=== PATIENT | male | born 1990 | race Caucasian/White ===

== ENCOUNTER 2017-12-06 21:47 | Inpatient (IN) | payer MEDICAID, OTHER ==
--- NOTE | 2017-12-06 22:04 | ED ---
General Adult HPI - General Chief complaint: Psychiatric Symptoms Stated complaint: suicidal Time Seen by Provider: 12/06/17 22:02 Source: patient, family, RN notes reviewed, old records reviewed Mode of arrival: ambulatory Limitations: no limitations - History of Present Illness Initial comments: This is a 19-year-old male to the ER for evaluation. Patient presents for suicidal thoughts today. Episodic symptoms 2 weeks, denies current drug or alcohol abuse. - Related Data Home Medications Medication Instructions Recorded Confirmed Fish Oil/Dha/Epa [Fish Oil 1,200 1 cap PO BID 12/06/17 12/07/17 mg Fish Oil] lamoTRIgine [LaMICtal] 100 mg PO BID 12/06/17 12/07/17 risperiDONE MICROSPHERES 37.5 mg IM Q14D 12/06/17 12/07/17 [RisperDAL CONSTA] Allergies Allergy/AdvReac Type Severity Reaction Status Date / Time No Known Allergies Allergy Verified 12/07/17 22:18 Review of Systems ROS Statement: Those systems with pertinent positive or pertinent negative responses have been documented in the HPI. ROS Other: All systems not noted in ROS Statement are negative. Past Medical History Past Medical History: No Reported History History of Any Multi-Drug Resistant Organisms: None Reported Past Surgical History: Hernia Repair Past Psychological History: Anxiety, Bipolar, Depression Smoking Status: Light tobacco smoker Past Alcohol Use History: None Reported Past Drug Use History: Marijuana General Exam Limitations: no limitations General appearance: alert, in no apparent distress Head exam: Present: atraumatic, normocephalic, normal inspection Eye exam: Present: normal appearance, PERRL, EOMI. Absent: scleral icterus, conjunctival injection, periorbital swelling ENT exam: Present: normal exam, mucous membranes moist Neck exam: Present: normal inspection. Absent: tenderness, meningismus, lymphadenopathy Respiratory exam: Present: normal lung sounds bilaterally. Absent: respiratory distress, wheezes, rales, rhonchi, stridor Cardiovascular Exam: Present: regular rate, normal rhythm, normal heart sounds. Absent: systolic murmur, diastolic murmur, rubs, gallop, clicks GI/Abdominal exam: Present: soft, normal bowel sounds. Absent: distended, tenderness, guarding, rebound, rigid Extremities exam: Present: normal inspection, full ROM, normal capillary refill. Absent: tenderness, pedal edema, joint swelling, calf tenderness Back exam: Present: normal inspection Neurological exam: Present: alert, oriented X3, CN II-XII intact Psychiatric exam: Present: normal affect, normal mood Skin exam: Present: warm, dry, intact, normal color. Absent: rash Course Vital Signs 12/06/17 12/06/17 12/06/17 21:50 23:24 23:30 Temperature 98.8 F 98.4 F 98.6 F Pulse Rate 95 86 Pulse Rate [ 69 Right] Respiratory 20 18 16 Rate Blood Pressure 159/95 130/86 Blood Pressure 111/71 [Right Arm] O2 Sat by Pulse 99 98 99 Oximetry - Reevaluation(s) Reevaluation #1: 12/06/17 22:04 Patient is medically clear for psychiatric evaluation Medical Decision Making - Medical Decision Making 27 male the ER for evaluation. Patient seen and evaluated by psychiatry, patient to be admitted for psychiatric evaluation and treatment - Lab Data Result diagrams: 12/07/17 07:49 12/07/17 07:49 Lab Results 12/06/17 Range/Units 22:10 Urine Opiates Screen Not Detected (NotDetected) Ur Oxycodone Screen Not Detected (NotDetected) Urine Methadone Screen Not Detected (NotDetected) Ur Propoxyphene Screen Not Detected (NotDetected) Ur Barbiturates Screen Not Detected (NotDetected) U Tricyclic Antidepress Not Detected (NotDetected) Ur Phencyclidine Scrn Not Detected (NotDetected) Ur Amphetamines Screen Not Detected (NotDetected) U Methamphetamines Scrn Not Detected (NotDetected) U Benzodiazepines Scrn Not Detected (NotDetected) Urine Cocaine Screen Not Detected (NotDetected) U Marijuana (THC) Screen Not Detected (NotDetected) Disposition Clinical Impression: Acute anxiety, Depression, Suicidal ideation Disposition: TRANSFER TO PSYCH HOSP/UNIT Condition: Fair
[2017-12-06] MEDS ORDERED: ACETAMINOPHEN TAB 325 MG TAB PO PRN (23:15)
[2017-12-06] MEDS ORDERED: MAG HYDROX/AL HYDROX/SIMETH 30 ML CUP PO PRN (23:15)
[2017-12-06] MEDS ORDERED: MAGNESIUM HYDROXIDE 2,400 MG/10 ML CUP PO PRN (23:15)
[2017-12-06 23:30] LABS: Amphetamine Screen,Urine Not Detected (NotDetected); Barbiturate Screen,Urine Not Detected (NotDetected); Benzodiazepines Screen,Urine Not Detected (NotDetected); Cocaine Screen,Urine Not Detected (NotDetected); Methadone Screen, Urine Not Detected (NotDetected); Opiate Screen,Urine Not Detected (NotDetected); Oxycodone Screen, Urine Not Detected (NotDetected); Phencyclidine Screen,Urine Not Detected (NotDetected); Tricyclic Antidepressant,Urine Not Detected (NotDetected); Urn Cannabinoid Scrn Not Detected (NotDetected)
[2017-12-07 00:33] VITALS: RESP 16
[2017-12-07 08:15] LABS: Basophils % (A) 0 %; Eosinophils # (A) 0.2 k/uL (0-0.7); Eosinophils % (A) 3 %; HCT 41.8 % (39.0-53.0); HGB 13.9 gm/dL (13.0-17.5); Lymphocytes % (A) 40 %; MCH 30.7 pg (25.0-35.0); MCHC 33.3 g/dL (31.0-37.0); MCV 92.2 fL (80.0-100.0); Monocytes # (A) 0.5 k/uL (0-1.0); Monocytes % (A) 9 %; Neutrophils # (A) 2.2 k/uL (1.3-7.7); Neutrophils % (A) 44 %; Platelet Count 312 k/uL (150-450); RBC 4.53 m/uL (4.30-5.90); RDW 12.3 % (11.5-15.5)
[2017-12-07 08:47] LABS: ALT 39 U/L (21-72); AST 23 U/L (17-59); Albumin 4.3 g/dL (3.5-5.0); Alkaline Phosphatase 59 U/L (38-126); Anion Gap 13 mmol/L; Blood Urea Nitrogen 12 mg/dL (9-20); Calcium 9.7 mg/dL (8.4-10.2); Carbon Dioxide 26 mmol/L (22-30); Chloride 105 mmol/L (98-107); Cholesterol 175 mg/dL (<200); Glucose 97 mg/dL (74-99); HDL Cholesterol 45 mg/dL (40-60); LDL Cholesterol,Calculated 116 mg/dL (0-99); Potassium 4.5 mmol/L (3.5-5.1); Sodium 144 mmol/L (137-145); Total Bilirubin 0.6 mg/dL (0.2-1.3); Total Protein 6.7 g/dL (6.3-8.2); Triglycerides 71 mg/dL (<150)
[2017-12-07] MEDS: lamoTRIgine 100 MG TAB PO SCH ×2 (09:09→20:38)
[2017-12-07] MEDS: NON-FORMULARY DRUG (Fish Oil/Dha/Epa [Fish Oil 1,200 Mg Fish Oil] 1 CAP) PO SCH ×2 (09:10→20:38)
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
--- NOTE | 2017-12-07 13:26 | P.CONS ---
History of Present Illness - Reason for Consult Consult date: 12/07/17 Medical management Requesting physician: Christine Ta - Chief Complaint Suicidal ideation - History of Present Illness This is a 19-year-old male, that is a Dr. Magaña patient. He has a known past medical history of bipolar, anxiety and depression and nicotine dependence. He presented to the emergency room with complaints of suicidal thoughts. Per ER this is been ongoing for about 2 weeks. He reports taking his psychiatric medications. He reports a previous psychiatric hospitalization. We have been consulted for medical management. Patient also reports having intermittent didn 't chest pain for the past 2 years. He states the last episode of chest pain was about 2 weeks ago. He reports that in the center of his chest with no other symptoms. The pain doesn't radiate. Very vague on how long it lasts. He denies any nausea or vomiting, shortness of breath, diaphoresis, any bowel movement changes abdominal pain or urinary symptoms. EKG has been ordered. He denies any dizziness, lightheadedness, heart palpitations. He denies any previous cardiac history. He reports that he's never had the chest pain worked up. He was told at one point that he had elevated blood pressures. But was not started on medication at that time. Blood pressure this morning was 112/ 52. On admission he did have an elevated blood pressure 159/95. But since then blood pressures have been stable. He denies any current chest pain. Review of Systems Please refer to HPI otherwise unremarkable Past Medical History Past Medical History: No Reported History History of Any Multi-Drug Resistant Organisms: None Reported Past Surgical History: Hernia Repair Past Psychological History: Anxiety, Bipolar, Depression Smoking Status: Light tobacco smoker Past Alcohol Use History: None Reported Past Drug Use History: Marijuana Medications and Allergies Home Medications Medication Instructions Recorded Confirmed Type Fish Oil/Dha/Epa [Fish Oil 1,200 1 cap PO BID 12/06/17 12/06/17 History mg Fish Oil] lamoTRIgine [LaMICtal] 100 mg PO BID 12/06/17 12/06/17 History risperiDONE MICROSPHERES 37.5 mg IM Q14D 12/06/17 12/06/17 History [RisperDAL CONSTA] Allergies Allergy/AdvReac Type Severity Reaction Status Date / Time No Known Allergies Allergy Verified 12/06/17 22:27 Physical Exam Vitals: Vital Signs Temp Pulse Pulse Resp BP BP Pulse Ox 12/07/17 06:44 98.4 F 64 16 112/52 12/06/17 23:30 98.6 F 69 16 111/71 99 12/06/17 23:24 98.4 F 86 18 130/86 98 12/06/17 21:50 98.8 F 95 20 159/95 99 Intake and Output 12/06/17 12/07/17 12/07/17 22:59 06:59 14:59 Other: Weight 81.647 kg 80.467 kg Head normocephalic Neck supple Lungs clear to auscultation bilaterally no wheezing or crackles Heart regular rate and rhythm S1-S2, no rub or gallop Abdomen is soft nontender nondistended positive bowel sounds no hepatosplenomegaly Extremities no edema Neuro alert and orientated to 3 Psych: Disheveled appearance. Clothing appears unclean. Appropriate eye contact Results CBC & Chem 7: 12/07/17 07:49 12/07/17 07:49 Labs: Abnormal Lab Results - Last 24 Hours (Table) 12/07/17 Range/Units 07:49 LDL Cholesterol, Calc 116 H (0-99) mg/dL Assessment and Plan Assessment: 1. Depression with suicidal ideation: Has been admitted to the psychiatric unit : restarted on his Lamictal and Risperdal 2. Intermittent episodes of chest pain over the last 2 years. Patient has never had a cardiac workup. Check EKG. Last episode of chest pain was about 2 weeks ago 3. History of bipolar Blood work reviewed TSH normal, drug screen negative. Thank you for this consultation and allowing us to participate in this patient' s care Time with Patient: Greater than 30 (Greater than 50% of the total time spent in counseling and coordination of care.I performed an examination of the patient and discussed their management with the physician Dyed Raw Stock Blower Feeder. I have reviewed the Physician Dyed Raw Stock Blower Feeder's notes and agree with the documented findings and plan of care)
[2017-12-08] MEDS: lamoTRIgine 100 MG TAB PO SCH ×2 (09:01→20:24)
--- NOTE | 2017-12-08 09:01 | P.PN ---
Progress Note - Text Progress Note Date: 12/08/17 Patient was seen for a follow-up examination. He continues to be cheerful alert friendly and cooperative. He does not have any particular complaint. He takes his medication attends some groups and gets along well with peers and staff a did not talk to his father about coming home yet. This is a quite ambulatory male with good hygiene. He is cheerful polite and cooperative. His speech is spontaneous relevant and goal-directed. His affect is appropriate. He denies hallucinations delusional thinking suicidal and homicidal ideas. He is well oriented with adequate memory and concentration and general fund of knowledge. Plan: Continue his medications and groups. Consider discharging him on Monday the if his weekend goes well.
[2017-12-08] MEDS: NON-FORMULARY DRUG (Fish Oil/Dha/Epa [Fish Oil 1,200 Mg Fish Oil] 1 CAP) PO SCH (20:24)
[2017-12-09] MEDS: lamoTRIgine 100 MG TAB PO SCH ×2 (08:36→20:37)
[2017-12-09] MEDS: NON-FORMULARY DRUG (Fish Oil/Dha/Epa [Fish Oil 1,200 Mg Fish Oil] 1 CAP) PO SCH ×2 (08:36→20:37)
--- NOTE | 2017-12-09 11:05 | P.PN ---
Progress Note - Text Progress Note Date: 12/09/17 Interval History: Patient is a 27-year-old male who is being seen in [facility] the weekend, he reports he is not hearing any voices and not feeling paranoid. He reports no longer having any suicidal ideation. He states that he is sleeping and eating well. He states that he attended several groups yesterday and plans to attend more today. He reports no side effects from his medications. He did voice some anxiety regarding his taxes and wondered if medication could be changed to target that. Mental Status: Appearance/Attitude: Patient is appropriately dressed, makes good eye contact and is cooperative. Behavior: Patient does not exhibit any psychomotor agitation or retardation. Speech/Language: Speech is spontaneous of normal volume and rhythm and he is coherent. Thought Process: Patient is goal-directed there is no evidence of loose associations or flight of ideas. Thought Content: Patient denies any auditory or visual hallucinations and no delusions or paranoid ideation were elicited. Patient reports that he is not feeling depressed and states that he has been sleeping and eating well. He reported some anxiety regarding taxes and the fact that he owes money for this coming year. Patient reported no other side effects or concerns at this time. Suicidal/Homicidal Ideation: Patient denied any current suicidal or homicidal ideation. Sensorium/Cognition: Patient is alert and oriented to person, place, and time and his recent and remote memory are grossly intact. Mood/Affect: Patient's mood is euthymic and his affect is slightly blunted Insight/Judgment: Patient's insight and judgment are fair Assessment: Patient reports no suicidal ideation and no psychotic symptoms states that he is tolerating the medication well. Patient expressed some concerns regarding taxes and money that he owes for this year. Patient reported no side effects from his medication. Patient stated that he is sleeping and eating well and not feeling depressed. Patient attended several groups yesterday. Plan: Patient will continue on Lamictal 100 mg twice a day and Risperdal Consta 37.5 mg IM every 14 days, patient was encouraged to attend groups and activities and participate. Patient and I discussed options for him seeking assistance with his taxes. No medications were added for anxiety.
[2017-12-09 14:26] VITALS: BMI 27.8
[2017-12-10] MEDS: lamoTRIgine 100 MG TAB PO SCH ×2 (10:21→20:50)
[2017-12-10] MEDS: NON-FORMULARY DRUG (Fish Oil/Dha/Epa [Fish Oil 1,200 Mg Fish Oil] 1 CAP) PO SCH ×2 (10:21→20:49)
--- NOTE | 2017-12-10 10:53 | P.PN ---
Progress Note - Text Progress Note Date: 12/10/17 Interval History: Patient is a 27-year-old male is being seen for weekend coverage. Patient reports that he is doing quite well attending groups and activities, reports he slept well and is not feeling paranoid and no auditory hallucinations and states his mood is stable. Patient reports no side effects from the medication. Patient had no other complaints at this time. Mental Status: Appearance/Attitude: Patient is casually dressed, makes good eye contact and is cooperative Behavior: Patient does not exhibit any psychomotor agitation or retardation. Speech/Language: Patient's speech is spontaneous, normal volume and rhythm and he is coherent Thought Process: Patient is goal-directed although his responses are brief in nature, no evidence of circumstantial or tangential thought and no loose associations or flight of ideas Thought Content: Patient denies auditory or visual hallucinations and no delusions or paranoid ideation were elicited. Patient reports that he is feeling well and sleeping and eating well. He reported no complaints of side effects from the medication Suicidal/Homicidal Ideation: Patient denies any current suicidal or homicidal ideation. Sensorium/Cognition: He is alert and oriented to person, place, time and his recent and remote memory are grossly intact. Mood/Affect: Patient's mood is stable and his affect slightly blunted Insight/Judgment: Patient's insight and judgment are fair Assessment: Patient reports that he has been attending groups and activities and states that he slept well last evening. He states that he is not hearing voices not feeling paranoid. He reports that he has no side effects from the medication and no other complaints. No side effects were noted on exam. Plan: Patient will continue on Lamictal 100 mg twice a day and Risperdal Consta 37.5 mg every 2 weeks his next injection is due on December 12. Patient will continue in the hospital to further stabilize his mood.
[2017-12-11 06:52] VITALS: BP 120/71; PULSE 67; TEMP 97.7
[2017-12-11] MEDS: lamoTRIgine 100 MG TAB PO SCH (08:45)
[2017-12-11] MEDS: NON-FORMULARY DRUG (Fish Oil/Dha/Epa [Fish Oil 1,200 Mg Fish Oil] 1 CAP) PO SCH (08:46)
--- NOTE | 2017-12-11 13:36 | P.DS ---
Providers Date of admission: 12/06/17 23:14 Expected date of discharge: 12/11/17 Attending physician: Christine Ta Consults: 12/06/17 23:15 Consult Physician Routine Consulting Provider: Anisha Norman Consult Reason/Comments: H&P Do you want consulting provider notified?: Yes Primary care physician: [facility] Course: Patient had his psychiatric evaluation, physical examination and psychosocial evaluation. After psychiatric evaluation he was continued on his home medication of Lamictal. He attended his groups, interacted with peers and staff and got along well. He did not need any medication adjustments. His father agreed to take him home and make sure that he has his outpatient follow- up. He continues to be free of suicide and homicide thoughts. This is a white ambulatory male with good hygiene. He is polite and cooperative. He does not show any psychomotor agitation or retardation. His speech is spontaneous relevant and goal-directed. His mood is euthymic and affect is appropriate. He denies hallucinations and delusional thinking. He continues to deny suicidal thoughts. He also denies homicidal thoughts. His insight has improved and judgment is adequate. He is well oriented with good memory concentration general fund of knowledge calculation etc. Discharge diagnosis: Unspecified bipolar and related disorder F 31.9 Cannabis use disorder severe F 12.20 NKDA. Discharge plan: Patient is discharged to live with his father. He will continue with outpatient treatment and is due for Risperdal Consta shot tomorrow. 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 He agreed with all these recommendations. Patient Condition at Discharge: Good Plan - Discharge Summary Discharge Rx Participant: No New Discharge Prescriptions: New Acetaminophen Tab [Tylenol] 650 mg PO Q4HR PRN tab PRN Reason: Pain/Discomfort Mag Hydrox/Al Hydrox/Simeth [Maalox] 30 ml PO Q4HR PRN cup PRN Reason: Gi Upset Magnesium Hydroxide [Milk of Magnesia Concentrate] 2,400 mg PO DAILY PRN ml PRN Reason: Constipation Continue lamoTRIgine [LaMICtal] 100 mg PO BID Fish Oil/Dha/Epa [Fish Oil 1,200 mg Fish Oil] 1 cap PO BID risperiDONE MICROSPHERES [RisperDAL CONSTA] 37.5 mg IM Q14D Discharge Medication List Fish Oil/Dha/Epa [Fish Oil 1,200 mg Fish Oil] 1 cap PO BID 12/06/17 [History] lamoTRIgine [LaMICtal] 100 mg PO BID 12/06/17 [History] risperiDONE MICROSPHERES [RisperDAL CONSTA] 37.5 mg IM Q14D 12/06/17 [History] Acetaminophen Tab [Tylenol] 650 mg PO Q4HR PRN tab 12/11/17 [Rx] Mag Hydrox/Al Hydrox/Simeth [Maalox] 30 ml PO Q4HR PRN cup 12/11/17 [Rx] Magnesium Hydroxide [Milk of Magnesia Concentrate] 2,400 mg PO DAILY PRN ml 02/23 [Rx] Follow up Appointment(s)/Referral(s): [facility] [Outside] - 12/12/17 4:30 pm (12-12-17 @ 4:30 for injection 12-12-17 @ 5:00 with Gurpreet Marks 12-13-17 @ 12:[address] Costa) Lucy Magaña DO [Primary Care Provider] - 1-2 days Patient Instructions/Handouts: Depression (DC), Generalized Anxiety Disorder ( DC), Suicide Prevention for Adults (DC) Activity/Diet/Wound Care/Special Instructions: Activity and diet as tolerated. Avoid the use of street drugs and alcohol. Remove all firearms from home. Take all medications as prescribed. When you are in need of refills of your medication please contact your medical provider and/ or outpatient psychiatrist to have this done. Please go to scheduled outpatient appointment for aftercare. If symptoms return or become worse you can call the Crisis Line at and/or go to the nearest emergency room for an evaluation.
== END 2017-12-11 15:05 | disposition home or self-care (01) | DRG 885 ==
LOC: EC 21:47 → 3MHU 23:14
PROVIDERS: ADMIT Psychiatry & Neurology Psychiatry; ATTEND Psychiatry & Neurology Psychiatry
DX: F31.9 Bipolar disorder, unspecified (principal); R45.851 Suicidal ideations; F12.90 Cannabis use, unspecified, uncomplicated; F17.200 Nicotine dependence, unspecified, uncomplicated; F41.9 Anxiety disorder, unspecified; R03.0 Elevated blood-pressure reading, without diagnosis of hypertension; R07.9 Chest pain, unspecified; Z79.899 Other long term (current) drug therapy; Z81.8 Family history of other mental and behavioral disorders
CPT/HCPCS: 80053; 80061; 80306; 82075; 83036; 84443; 85025; 93005; 99285

== ENCOUNTER 2018-12-28 11:41 | Emergency (ER) | payer OTHER ==
--- NOTE | 2018-12-28 12:23 | ED ---
General Adult HPI - General Chief complaint: Psychiatric Symptoms Stated complaint: Mental Health Time Seen by Provider: 12/28/18 12:05 Source: patient, RN notes reviewed, old records reviewed Mode of arrival: ambulatory Limitations: no limitations - History of Present Illness Initial comments: 28-year-old male presenting for mental health evaluation. Patient was petitioned by his mother, brought in by local police for mental health evaluation. There is concern of suicidal thoughts over the patient is denying at this time. He's been off his medication for the past several weeks. He's had multiple mental health evaluations and psychiatric admissions in the past. No physical complaints at the time my evaluation. Patient is cooperative. - Related Data Home Medications Medication Instructions Recorded Confirmed lamoTRIgine [LaMICtal] 100 mg PO BID 12/06/17 12/28/18 risperiDONE MICROSPHERES 37.5 mg IM Q14D 12/06/17 12/28/18 [RisperDAL CONSTA] Allergies Allergy/AdvReac Type Severity Reaction Status Date / Time No Known Allergies Allergy Verified 12/28/18 13:07 Review of Systems ROS Statement: Those systems with pertinent positive or pertinent negative responses have been documented in the HPI. ROS Other: All systems not noted in ROS Statement are negative. Past Medical History Past Medical History: No Reported History History of Any Multi-Drug Resistant Organisms: None Reported Past Surgical History: Hernia Repair Past Psychological History: Anxiety, Bipolar, Depression Smoking Status: Light tobacco smoker Past Alcohol Use History: None Reported Past Drug Use History: Marijuana General Exam Limitations: no limitations General appearance: alert, in no apparent distress Head exam: Present: atraumatic, normocephalic Eye exam: Present: normal appearance, PERRL ENT exam: Present: normal exam Neck exam: Present: normal inspection. Absent: tenderness, meningismus Respiratory exam: Present: normal lung sounds bilaterally. Absent: respiratory distress, wheezes Cardiovascular Exam: Present: regular rate, normal rhythm GI/Abdominal exam: Present: soft. Absent: distended, tenderness Extremities exam: Present: normal inspection, normal capillary refill. Absent: pedal edema Neurological exam: Present: alert, oriented X3 Psychiatric exam: Present: flat affect. Absent: homicidal ideation, suicidal ideation Skin exam: Present: warm, dry, intact. Absent: cyanosis, diaphoretic Course Vital Signs 12/28/18 11:56 Temperature 98.1 F Pulse Rate 75 Respiratory 16 Rate Blood Pressure 129/87 O2 Sat by Pulse 97 Oximetry - Reevaluation(s) Reevaluation #1: 12/28/18 15:51 I did reevaluate this patient, resting comfortably, patient has been compliant with all evaluations and treatment plan. No suicidal or homicidal ideation. Medical Decision Making - Medical Decision Making 28-year-old male brought in for psychiatric evaluation. Patient petitioned by his mother. Patient was evaluated by EPS and mobile crisis in the emergency department. There was a long discussion with the patient, and his parents. Patient is denying any suicidal or homicidal ideation. He is uncertain exactly why he is here. He does admit to not taking his medication but states he was scheduled for an injection yesterday and will follow up as an outpatient to receive this injection. Patient is willing to safety plan with [facility]. He will be discharged home at this time. His parents are available for pickup and agreeable with plan. - Lab Data Lab Results 12/28/18 Range/Units 13:06 Urine Opiates Screen Not Detected (NotDetected) Ur Oxycodone Screen Not Detected (NotDetected) Urine Methadone Screen Not Detected (NotDetected) Ur Propoxyphene Screen Not Detected (NotDetected) Ur Barbiturates Screen Not Detected (NotDetected) U Tricyclic Antidepress Not Detected (NotDetected) Ur Phencyclidine Scrn Not Detected (NotDetected) Ur Amphetamines Screen Detected H (NotDetected) U Methamphetamines Scrn Not Detected (NotDetected) U Benzodiazepines Scrn Not Detected (NotDetected) Urine Cocaine Screen Not Detected (NotDetected) U Marijuana (THC) Screen Detected H (NotDetected) Disposition Clinical Impression: Bipolar disorder, unspecified, Depression, Cannabis use disorder, severe, dependence Disposition: HOME SELF-CARE Condition: Fair Instructions (If sedation given, give patient instructions): Bipolar Disorder (ED) Additional Instructions: 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 Please return with worsening or changing symptoms. Is patient prescribed a controlled substance at d/c from ED?: No Referrals: Lucy Magaña DO [Primary Care Provider] - 1-2 days Time of Disposition: 15:51
[2018-12-28 13:29] LABS: Amphetamine Screen,Urine Detected (NotDetected); Barbiturate Screen,Urine Not Detected (NotDetected); Benzodiazepines Screen,Urine Not Detected (NotDetected); Cocaine Screen,Urine Not Detected (NotDetected); Methadone Screen, Urine Not Detected (NotDetected); Opiate Screen,Urine Not Detected (NotDetected); Oxycodone Screen, Urine Not Detected (NotDetected); Phencyclidine Screen,Urine Not Detected (NotDetected); Tricyclic Antidepressant,Urine Not Detected (NotDetected); Urn Cannabinoid Scrn Detected (NotDetected)
[2018-12-28 17:04] VITALS: BP 120/78; PULSE 76; RESP 18; TEMP 97
== END 2018-12-28 16:13 | disposition home or self-care (01) ==
LOC: EC 11:41
DX: F31.9 Bipolar disorder, unspecified (principal); F12.20 Cannabis dependence, uncomplicated; F41.9 Anxiety disorder, unspecified; F17.200 Nicotine dependence, unspecified, uncomplicated; Z79.899 Other long term (current) drug therapy
CPT/HCPCS: 80306; 99284

== ENCOUNTER 2020-04-10 04:24 | Emergency (ER) | payer OTHER ==
[2020-04-10 05:48] LABS: Amphetamine Screen,Urine Not Detected (NotDetected); Barbiturate Screen,Urine Not Detected (NotDetected); Benzodiazepines Screen,Urine Not Detected (NotDetected); Cocaine Screen,Urine Not Detected (NotDetected); Methadone Screen, Urine Not Detected (NotDetected); Opiate Screen,Urine Not Detected (NotDetected); Oxycodone Screen, Urine Not Detected (NotDetected); Phencyclidine Screen,Urine Not Detected (NotDetected); Tricyclic Antidepressant,Urine Not Detected (NotDetected); Urn Cannabinoid Scrn Not Detected (NotDetected)
[2020-04-10 06:50] VITALS: TEMP 98.2
--- NOTE | 2020-04-10 07:58 | ED ---
Psych HPI - General Source: patient, police Mode of arrival: ambulatory - History of Present Illness MD Complaint: other -: hour(s) Associated Psychiatric Symptoms: racing thoughts History of same: Yes Quality: getting worse Improves With: medication Context: not taking psychiatric medications Associated Symptoms: denies other symptoms <Miguel Licona - Last Filed: 04/10/20 07:56> <Terry Smith - Last Filed: 04/10/20 13:21> - General Chief Complaint: Psychiatric Symptoms Stated Complaint: Check-up Time Seen by Provider: 04/10/20 04:44 - History of Present Illness Initial Comments: This patient is a 30-year-old man brought by the local law enforcement to have psychiatric evaluation. The patient was reported to have been observed running through public space naked and then when he was approached by law enforcement she did run from them, reportedly jumping into the river and swimming for a distance before he was apprehended. The patient states that he believes he has history of bipolar disorder. He states that he was doing fairly well and then went off his medications. Patient reports having racing thoughts. (Miguel Licona) - Related Data Home Medications Medication Instructions Recorded Confirmed lamoTRIgine [LaMICtal] 100 mg PO BID 12/06/17 04/10/20 risperiDONE MICROSPHERES 37.5 mg IM Q14D 04/10/20 04/10/20 [RisperDAL CONSTA] Allergies Allergy/AdvReac Type Severity Reaction Status Date / Time No Known Allergies Allergy Verified 04/10/20 07:05 Review of Systems ROS Other: All systems not noted in ROS Statement are negative. Constitutional: Denies: fever, chills Respiratory: Denies: cough, dyspnea Cardiovascular: Denies: chest pain, palpitations, syncope Gastrointestinal: Denies: abdominal pain, vomiting, diarrhea Musculoskeletal: Denies: back pain Skin: Denies: rash Neurological: Denies: headache, weakness, numbness, confusion Psychiatric: Denies: depression, auditory hallucinations, visual hallucinations, homicidal thoughts, suicidal thoughts <Miguel Licona - Last Filed: 04/10/20 07:56> ROS Other: All systems not noted in ROS Statement are negative. <Terry Smith - Last Filed: 04/10/20 13:21> ROS Statement: Those systems with pertinent positive or pertinent negative responses have been documented in the HPI. Past Medical History Past Medical History: No Reported History Additional Past Medical History / Comment(s): possible genital warts History of Any Multi-Drug Resistant Organisms: None Reported Past Surgical History: Hernia Repair Additional Past Surgical History / Comment(s): inguinal hernia Left and Right Past Psychological History: Anxiety, Bipolar, Depression Smoking Status: Light tobacco smoker Past Alcohol Use History: None Reported Past Drug Use History: Marijuana <Miguel Licona - Last Filed: 04/10/20 07:56> General Exam Limitations: no limitations General appearance: alert, in no apparent distress Head exam: Present: atraumatic, normocephalic Eye exam: Present: normal appearance. Absent: scleral icterus, conjunctival injection Neck exam: Present: normal inspection Respiratory exam: Present: normal lung sounds bilaterally. Absent: respiratory distress, wheezes, rales, rhonchi, stridor Cardiovascular Exam: Present: regular rate, normal rhythm, normal heart sounds. Absent: systolic murmur, diastolic murmur, rubs, gallop GI/Abdominal exam: Present: soft. Absent: tenderness, guarding, rebound Extremities exam: Present: normal inspection, normal capillary refill. Absent: pedal edema, calf tenderness Neurological exam: Present: alert, oriented X3 Psychiatric exam: Present: manic. Absent: depressed, agitated, anxious, flat affect, homicidal ideation, suicidal ideation Skin exam: Present: warm, dry, intact, normal color. Absent: rash <Miguel Licona - Last Filed: 04/10/20 07:56> Course Vital Signs 04/10/20 04/10/20 04:30 06:48 Temperature 97.4 F L 98.2 F Pulse Rate 107 H 83 Respiratory 18 18 Rate Blood Pressure 135/97 138/87 O2 Sat by Pulse 99 100 Oximetry Medical Decision Making - Lab Data Lab Results 04/10/20 Range/Units 05:30 Urine Opiates Screen Not Detected (NotDetected) Ur Oxycodone Screen Not Detected (NotDetected) Urine Methadone Screen Not Detected (NotDetected) Ur Propoxyphene Screen Not Detected (NotDetected) Ur Barbiturates Screen Not Detected (NotDetected) U Tricyclic Antidepress Not Detected (NotDetected) Ur Phencyclidine Scrn Not Detected (NotDetected) Ur Amphetamines Screen Not Detected (NotDetected) U Methamphetamines Scrn Not Detected (NotDetected) U Benzodiazepines Scrn Not Detected (NotDetected) Urine Cocaine Screen Not Detected (NotDetected) U Marijuana (THC) Screen Not Detected (NotDetected) Disposition <Miguel Licona - Last Filed: 04/10/20 07:56> Is patient prescribed a controlled substance at d/c from ED?: No Time of Disposition: 13:21 <Terry Smith - Last Filed: 04/10/20 13:21> Clinical Impression: Manic behavior, Noncompliance with medications Disposition: HOME SELF-CARE Condition: Good Instructions (If sedation given, give patient instructions): Bipolar Disorder (ED) Additional Instructions: Patient should take his medications as prescribed. Referrals: Lucy Magaña DO [Primary Care Provider] - 1-2 days
[2020-04-10 14:27] VITALS: BP 126/71; PULSE 77; RESP 16
== END 2020-04-10 15:00 | disposition home or self-care (01) ==
LOC: EC 04:24
DX: F30.9 Manic episode, unspecified (principal); Z91.14 Patient's other noncompliance with medication regimen; F17.210 Nicotine dependence, cigarettes, uncomplicated; Z79.899 Other long term (current) drug therapy
CPT/HCPCS: 82075; 80306; 96372; 99284; J2794

== ENCOUNTER → 2021-04-05 | Outpatient (CLI) | payer OTHER ==
--- NOTE | 2021-04-05 16:25 | XR ---
EXAMINATION TYPE: XR ankle limited LT DATE OF EXAM: 04/05/2021 COMPARISON: NONE HISTORY: Pain FINDINGS: Two views of the ankle demonstrate the ankle mortise to be intact and symmetric. The joint spaces ar e preserved. The osseous structures are intact. IMPRESSION: 1. No definite acute fracture or dislocation, if symptoms persist follow-up study in 7 to 10 days wou ld be suggested.
== END | disposition home or self-care (01) ==
LOC: RADXRMAIN 15:58
PROVIDERS: ATTEND Physician Assistant Medical
DX: M25.572 Pain in left ankle and joints of left foot (principal)

== ENCOUNTER 2022-04-01 09:59 | Emergency (ER) | payer OTHER ==
[2022-04-01 10:03] VITALS: BP 150/98; PULSE 70; RESP 16; TEMP 97.3
[2022-04-01] MEDS ORDERED: KETOROLAC 15 MG/ML 1 ML VIAL IM STA (10:12)
[2022-04-01] MEDS ORDERED: CYCLOBENZAPRINE 10 MG TAB PO STA (10:12)
--- NOTE | 2022-04-01 10:16 | ED ---
Back Pain HPI - General Chief Complaint: Back Pain/Injury Stated Complaint: low back pain Time Seen by Provider: 04/01/22 10:06 Source: patient, RN notes reviewed Limitations: no limitations - History of Present Illness Initial Comments: Patient is a 32-year-old male presents the emergency room with complaints of acute right sided mid low back pain which began 2 days ago. He denies any inciting events. He reports being concerned that it was related to his kidneys consequently has increased hydration without any change in symptoms. Does report that massaging the area and running seem to help with the symptoms. He is not taking any ixiw-tet-mehxmef analgesics for the pain. He denies any abdominal pain, nausea, vomiting, muscle weakness, pallor or bladder inconti nence or any other signs or symptoms of cloudy equine. He is no significant past medical history denies any other complaints or concerns. - Related Data Previous Rx's Medication Instructions Recorded Cyclobenzaprine [Flexeril] 10 mg PO TID 7 Days #21 tab 04/01/22 Ibuprofen 800 mg PO Q8H 10 Days #30 tab 04/01/22 Allergies Allergy/AdvReac Type Severity Reaction Status Date / Time No Known Allergies Allergy Verified 04/01/22 10:39 Review of Systems ROS Statement: Those systems with pertinent positive or pertinent negative responses have been documented in the HPI. ROS Other: All systems not noted in ROS Statement are negative. Past Medical History Past Medical History: No Reported History Additional Past Medical History / Comment(s): possible genital warts History of Any Multi-Drug Resistant Organisms: None Reported Past Surgical History: Hernia Repair Additional Past Surgical History / Comment(s): inguinal hernia Left and Right Past Psychological History: Anxiety, Bipolar, Depression Smoking Status: Current every day smoker Past Alcohol Use History: None Reported Past Drug Use History: Marijuana General Exam Limitations: no limitations General appearance: alert, in no apparent distress Head exam: Present: atraumatic, normocephalic, normal inspection Eye exam: Present: normal appearance, PERRL, EOMI. Absent: scleral icterus, conjunctival injection, periorbital swelling ENT exam: Present: normal exam, mucous membranes moist Neck exam: Present: normal inspection. Absent: tenderness, meningismus, lymphadenopathy Respiratory exam: Absent: respiratory distress, accessory muscle use GI/Abdominal exam: Present: soft, normal bowel sounds. Absent: distended, tenderness, organomegaly, mass Rectal exam: Present: deferred Extremities exam: Present: normal inspection. Absent: pedal edema, joint swelling Back exam: Present: normal inspection, muscle spasm (Right upper lumbar region). Absent: tenderness, CVA tenderness (R), CVA tenderness (L), paraspinal tenderness, vertebral tenderness Neurological exam: Present: alert, oriented X3, CN II-XII intact Psychiatric exam: Present: normal affect, normal mood Skin exam: Present: warm, dry, intact, normal color. Absent: rash Course Vital Signs 04/01/22 10:01 Temperature 97.3 F L Pulse Rate 70 Respiratory 16 Rate Blood Pressure 150/98 O2 Sat by Pulse 98 Oximetry Medical Decision Making - Medical Decision Making No trauma or known previous injury. Likely secondary to lumbar paraspinal spasms. No radiculopathy. Will check x-ray of the lumbar spine along with urinalysis. Will give a dose of Toradol and cyclobenzaprine. Will monitor response and diagnostic testing. X-ray of lumbar spine shows suspect some underlying degenerative changes but pre served height alignment and bone mineralization of lumbar vertebral bodies. Some mild disc loss height L5 to S1, lumbar MRI may be of benefit. Urinalysis with slight amount of leukocyte esterase however no blood or bacteria noted. Symptoms significantly improved with a torsed of IM Toradol along with cyclobenzaprine. Will discharge home with short course of ibuprofen and cyclobenzaprine with recommendation for follow-up with his primary care provider and if symptoms persist orthopedist. Case discussed with Dr. New. - Lab Data Lab Results 04/01/22 Range/Units 10:22 Urine Color Yellow Urine Appearance Clear (Clear) Urine pH 5.5 (5.0-8.0) Ur Specific [place] 1.023 (1.001-1.035) Urine Protein Negative (Negative) Urine Glucose (UA) Negative (Negative) Urine Ketones Negative (Negative) Urine Blood Negative (Negative) Urine Nitrite Negative (Negative) Urine Bilirubin Negative (Negative) Urine Urobilinogen <2.0 (<2.0) mg/dL Ur Leukocyte Esterase Small H (Negative) Urine RBC 3 (0-5) /hpf Urine WBC 10 H (0-5) /hpf Ur Squamous Epith Cells <1 (0-4) /hpf Calcium Oxalate Crystal Occasional H (None) /hpf Urine Mucus Rare H (None) /hpf Disposition Clinical Impression: Strain of lumbar region Disposition: HOME SELF-CARE Condition: Fair Instructions (If sedation given, give patient instructions): Acute Low Back Pain (ED) Additional Instructions: Avoid heavy lifting. Range of motion encouraged. Utilize ibuprofen and cyclobenzaprine as needed. Please follow-up with your primary care provider for further evaluation and treatment of symptoms. Please return to the Emergency Department if symptoms worsen or any other concerns. Prescriptions: Cyclobenzaprine [Flexeril] 10 mg PO TID 7 Days #21 tab Ibuprofen 800 mg PO Q8H 10 Days #30 tab Is patient prescribed a controlled substance at d/c from ED?: No Referrals: Lucy Magaña DO [Primary Care Provider] - 1-2 days Time of Disposition: 11:10
--- NOTE | 2022-04-01 10:45 | XR ---
Lumbar spine HISTORY: Low back pain 3 views of the lumbar spine Lumbar vertebral bodies show preserved height, alignment, and bone mineralization. Some mild loss of disc height L5-S1. IMPRESSION: Suspect some underlying degenerative disc change, lumbar MRI may be of benefit.
[2022-04-01 10:52] LABS: Appearance,Urine Clear (Clear); Bilirubin,Urine Negative (Negative); Blood,Urine Negative (Negative); Calcium Oxalate Crystals,Urine Occasional /hpf; Color,Urine Yellow; Glucose,Urine (UA) Negative (Negative); Ketones,Urine Negative (Negative); Leukocyte Esterase,Urine Small (Negative); Mucus,Urine Rare /hpf; Nitrite,Urine Negative (Negative); PH, Urine 5.5 (5.0-8.0); Protein,Urine Negative (Negative); RBC,Urine 3 /hpf (0-5); Specific Gravity,Urine 1.023 (1.001-1.035); Squamous Epithelial Cell,Urine <1 /hpf (0-4); Urobilinogen,Urine <2.0 mg/dL (<2.0); WBC,Urine 10 /hpf (0-5)
== END 2022-04-01 12:02 | disposition home or self-care (01) ==
LOC: EC 09:59
DX: S39.012A Strain of muscle, fascia and tendon of lower back, initial encounter (principal); F17.200 Nicotine dependence, unspecified, uncomplicated; X58.XXXA Exposure to other specified factors, initial encounter
CPT/HCPCS: 81001; 72100; 99283; 96372; J1885

== ENCOUNTER 2023-01-15 22:48 | Emergency (ER) | payer OTHER ==
[2023-01-15 22:55] VITALS: BP 129/92; PULSE 112; RESP 18; TEMP 98.3
[2023-01-15] MEDS ORDERED: KETOROLAC 15 MG/ML 1 ML VIAL IVP STA (23:16)
[2023-01-15] MEDS ORDERED: LIDOCAINE 5% PATCH TOPICAL SCH (23:30)
--- NOTE | 2023-01-15 23:44 | ED ---
General Adult HPI - General Chief complaint: Back Pain/Injury Stated complaint: Back Pain Time Seen by Provider: 01/15/23 22:58 Source: patient, RN notes reviewed Mode of arrival: ambulatory Limitations: no limitations - History of Present Illness Initial comments: 32-year-old male with no significant past medical history presents to the emergency department with a chief complaint of back pain. Patient reports his back pain started yesterday after taking a "long bike ride. " He describes the pain as sharp that is worse with movement. He denies any previous injury or trauma. He denies any fever, chills, fatigue, saddle paresthesia, loss of bowel or bladder function. He has not taken anything for his symptoms. - Related Data Previous Rx's Medication Instructions Recorded Cyclobenzaprine [Flexeril] 10 mg PO TID 7 Days #21 tab 04/01/22 Ibuprofen 800 mg PO Q8H 10 Days #30 tab 04/01/22 Allergies Allergy/AdvReac Type Severity Reaction Status Date / Time No Known Allergies Allergy Verified 01/15/23 22:53 Review of Systems ROS Statement: Those systems with pertinent positive or pertinent negative responses have been documented in the HPI. ROS Other: All systems not noted in ROS Statement are negative. Past Medical History Past Medical History: No Reported History Additional Past Medical History / Comment(s): possible genital warts History of Any Multi-Drug Resistant Organisms: None Reported Past Surgical History: Hernia Repair Additional Past Surgical History / Comment(s): inguinal hernia Left and Right Past Psychological History: Anxiety, Bipolar, Depression Smoking Status: Current every day smoker Past Alcohol Use History: None Reported Past Drug Use History: Marijuana General Exam Limitations: no limitations General appearance: alert, in no apparent distress Head exam: Present: atraumatic, normocephalic, normal inspection Eye exam: Present: normal appearance, PERRL, EOMI. Absent: scleral icterus, conjunctival injection, periorbital swelling ENT exam: Present: normal exam, mucous membranes moist Neck exam: Present: normal inspection. Absent: tenderness, meningismus, lymphadenopathy Respiratory exam: Present: normal lung sounds bilaterally. Absent: respiratory distress, wheezes, rales, rhonchi, stridor Cardiovascular Exam: Present: regular rate, normal rhythm, normal heart sounds. Absent: systolic murmur, diastolic murmur, rubs, gallop, clicks GI/Abdominal exam: Present: soft, normal bowel sounds. Absent: distended, tenderness, guarding, rebound, rigid Extremities exam: Present: normal inspection, full ROM, normal capillary refill. Absent: tenderness, pedal edema, joint swelling, calf tenderness Back exam: Present: normal inspection Neurological exam: Present: alert, oriented X3, CN II-XII intact Psychiatric exam: Present: normal affect, normal mood Skin exam: Present: warm, dry, intact, normal color. Absent: rash Course Vital Signs 01/15/23 22:53 Temperature 98.3 F Pulse Rate 112 H Respiratory 18 Rate Blood Pressure 129/92 O2 Sat by Pulse 98 Oximetry Medical Decision Making - Medical Decision Making Was pt. sent in by a medical professional or institution (, PA, GAS REFRIGERATOR SERVICER, urgent care, hospital, or custodial...) When possible be specific @ -[No] Did you speak to anyone other than the patient for history (EMS, parent, family, police, friend...)? What history was obtained from this source @ -[No] Did you review nursing and triage notes (agree or disagree)? Why? @ -[I reviewed and agree with nursing and triage notes] Were old charts reviewed (outside hosp., previous admission, EMS record, old EKG, old radiological studies, urgent care reports/EKG's, custodial records)? Report findings @ -[No old charts were reviewed] Differential Diagnosis (chest pain, altered mental status, abdominal pain women, abdominal pain men, vaginal bleeding, weakness, fever, dyspnea, syncope, headache, dizziness, GI bleed, back pain, seizure, CVA, palpatations, mental health, musculoskeletal)? @ -[not applicable] EKG interpreted by me (3pts min.). @ -[As above] X-rays interpreted by me (1pt min.). @ -[None done] CT interpreted by me (1pt min.). @ -[None done] U/S interpreted by me (1pt. min.). @ -[None done] What testing was considered but not performed or refused? (CT, X-rays, U/S, labs)? Why? @ -X-rays were considered however patient denies any previous injury or trauma What meds were considered but not given or refused? Why? @ -[None] Did you discuss the management of the patient with other professionals (professionals i.e. , PA, GAS REFRIGERATOR SERVICER, lab, RT, psych nurse, social media marketing manager, erp implementation consultant, teacher, correction officer head, immigration case manager)? Give summary @ -[No] Was smoking cessation discussed for >3mins.? @ -[No] Was critical care preformed (if so, how long)? @ -[No] Were there social determinants of health that impacted care today? How? (Homelessness, low income, unemployed, alcoholism, drug addiction, transportation, low edu. Level, literacy, decrease access to med. care, nursing home, rehab)? @ -[No] Was there de-escalation of care discussed even if they declined (Discuss DNR or withdrawal of care, Hospice)? DNR status @ -[No] What co-morbidities impacted this encounter? (DM, HTN, Smoking, COPD, CAD, Cancer, CVA, ARF, Chemo, Hep., AIDS, mental health diagnosis, sleep apnea, morbid obesity)? @ -[None] Was patient admitted / discharged? Hospital course, mention meds given and route, prescriptions, significant lab abnormalities, going to OR and other pertinent info. @ -Discharged. This is a 32-year-old male who presents the emergency department with back pain. Patient had a thorough history and physical exam performed while in the ED. Physical exam is essentially unremarkable heart rate regular rate and rhythm, lungs clear to auscultation bilaterally abdomen soft and nontender. Back exam is without any marked abnormalities patient maintains full range of motion and is able to and he was steady gait. Patient was given Toradol and Lidoderm patch with symptomatic relief on the ED. I discussed the r esults in detail with the patient who verbalized understanding and all questions were addressed. He was strongly encouraged follow-up with his PCP in 1-2 days. Patient discharged in stable condition. Case discussed with Dr. Angelica HILLMAN who agrees with plan of care Undiagnosed new problem with uncertain prognosis? @ -[No] Drug Therapy requiring intensive monitoring for toxicity (Heparin, Nitro, Insulin, Cardizem)? @ -[No] Were any procedures done? @ -[No] Diagnosis/symptom? @ -acute low back pain Acute, or Chronic, or Acute on Chronic? @ -acute Uncomplicated (without systemic symptoms) or Complicated (systemic symptoms)? @ -uncomplicated Side effects of treatment? @ -[No] Exacerbation, Progression, or Severe Exacerbation? @ -[No] Poses a threat to life or bodily function? How? (Chest pain, [place], [place], pneumonia, PE, COPD, DKA, ARF, appy, cholecystitis, CVA, Diverticulitis, Homicidal, Suicidal, threat to staff... and all critical care pts) @ -low likelihood Disposition Clinical Impression: Mechanical back pain Disposition: HOME SELF-CARE Condition: Stable Instructions (If sedation given, give patient instructions): Acute Low Back Pain (ED) Additional Instructions: Is return to the nearest emergency department if symptoms worsen or persist Is patient prescribed a controlled substance at d/c from ED?: No Referrals: Lucy Magaña DO [Primary Care Provider] - 1-2 days Time of Disposition: 00:19
== END 2023-01-16 00:34 | disposition home or self-care (01) ==
LOC: EC 22:48
DX: M54.9 Dorsalgia, unspecified (principal); F17.200 Nicotine dependence, unspecified, uncomplicated; F12.90 Cannabis use, unspecified, uncomplicated
CPT/HCPCS: 99283; 96374; J1885

== ENCOUNTER 2023-01-23 23:18 | Inpatient (IN) | payer MEDICAID, OTHER ==
--- NOTE | 2023-01-24 00:32 | ED ---
General Adult HPI - General Chief complaint: Psychiatric Symptoms Stated complaint: Mental Health Time Seen by Provider: 01/23/23 23:40 Source: patient Mode of arrival: ambulatory Limitations: no limitations - History of Present Illness Initial comments: This is a 32-year-old male with a past medical history including bipolar disorder presents emergency department because "I want to do a back flip off of a cellphone tower." The patient had a flat affect and was nonchalant talking about his suicidal thoughts. The patient did state that he had suicidal thoughts that started today but he has not had these thoughts and 2011. The patient was very specific that he had not had these thoughts and suicidal other when he was hospitalized and a [facility]. The patient himself denied any homicidal ideation as well as any auditory or visual hallucinations. The patient stated that he is also not followed up with a counselor or therapist over the last several years. The patient was resting in bed comfortably. The patient did complain of mild pain on the right lateral aspect of his hand after he punched a TV before coming into the emergency department. - Related Data Previous Rx's Medication Instructions Recorded Cyclobenzaprine [Flexeril] 10 mg PO TID 7 Days #21 tab 04/01/22 Ibuprofen 800 mg PO Q8H 10 Days #30 tab 04/01/22 Allergies Allergy/AdvReac Type Severity Reaction Status Date / Time No Known Allergies Allergy Verified 01/15/23 22:53 Review of Systems ROS Statement: Those systems with pertinent positive or pertinent negative responses have been documented in the HPI. ROS Other: All systems not noted in ROS Statement are negative. Past Medical History Past Medical History: No Reported History Additional Past Medical History / Comment(s): possible genital warts History of Any Multi-Drug Resistant Organisms: None Reported Past Surgical History: Hernia Repair Additional Past Surgical History / Comment(s): inguinal hernia Left and Right Past Psychological History: Anxiety, Bipolar, Depression Smoking Status: Current every day smoker Past Alcohol Use History: None Reported Past Drug Use History: Marijuana General Exam Limitations: no limitations General appearance: alert, in no apparent distress Head exam: Present: atraumatic, normocephalic, normal inspection Eye exam: Present: normal appearance, PERRL Pupils: Present: normal accommodation ENT exam: Present: normal exam, normal oropharynx, mucous membranes moist Neck exam: Present: normal inspection, full ROM Respiratory exam: Present: normal lung sounds bilaterally Cardiovascular Exam: Present: regular rate, normal rhythm, normal heart sounds GI/Abdominal exam: Present: soft, normal bowel sounds Extremities exam: Present: normal inspection, full ROM, tenderness (Tenderness noted to the lateral, dorsal aspect of the right hand) Back exam: Present: normal inspection, full ROM Neurological exam: Present: alert, oriented X3, CN II-XII intact Psychiatric exam: Present: flat affect, suicidal ideation Skin exam: Present: warm, dry Course Vital Signs 01/23/23 23:26 Temperature 98.2 F Pulse Rate 98 Respiratory 22 Rate Blood Pressure 192/110 O2 Sat by Pulse 100 Oximetry Medical Decision Making - Medical Decision Making Was pt. sent in by a medical professional or institution (, PA, PULL SOCKET ASSEMBLER, urgent care, hospital, or [facility]...) When possible be specific @ -No Did you speak to anyone other than the patient for history (EMS, parent, family, police, friend...)? What history was obtained from this source @ -No Did you review nursing and triage notes (agree or disagree)? Why? @ -I reviewed and agree with nursing and triage notes Were old charts reviewed (outside hosp., previous admission, EMS record, old EKG, old radiological studies, urgent care reports/EKG's, [facility] records)? Report findings @ -No old charts were reviewed Differential Diagnosis (chest pain, altered mental status, abdominal pain women, abdominal pain men, vaginal bleeding, weakness, fever, dyspnea, syncope, headache, dizziness, GI bleed, back pain, seizure, CVA, palpatations, mental health)? @ -Suicidal ideation, homicide ideation, bipolar disorder EKG interpreted by me (3pts min.). @ -As above X-rays interpreted by me (1pt min.). @ -X-ray of the right hand was obtained and was interpreted by myself showing a fracture of the right metacarpal CT interpreted by me (1pt min.). @ -None done U/S interpreted by me (1pt. min.). @ -None done What testing was considered but not performed or refused? (CT, X-rays, U/S, labs)? Why? @ -None What meds were considered but not given or refused? Why? @ -None Did you discuss the management of the patient with other professionals (professionals i.e. , PA, PULL SOCKET ASSEMBLER, lab, RT, psych nurse, director of social media marketing, stewardess supervisor, teacher, police officer, case assistant)? Give summary @ -No Was smoking cessation discussed for >3mins.? @ -No Was critical care preformed (if so, how long)? @ -No Were there social determinants of health that impacted care today? How? (Homelessness, low income, unemployed, alcoholism, drug addiction, transportation, low edu. Level, literacy, decrease access to med. care, long-term, rehab)? @ -No Was there de-escalation of care discussed even if they declined (Discuss DNR or withdrawal of care, Hospice)? DNR status @ -No What co-morbidities impacted this encounter? (DM, HTN, Smoking, COPD, CAD, Cancer, CVA, ARF, Chemo, Hep., AIDS, mental health diagnosis, sleep apnea, morbid obesity)? @ -Bipolar disorder Was patient admitted / discharged? Hospital course, mention meds given and route, prescriptions, significant lab abnormalities, going to OR and other pertinent info. @ -The patient was seen and evaluated emergency department. Physical exam, the patient was resting in bed without any acute distress. The patient was suicidal but was nonchalant peaking of this with a flat affect. There was no laboratory workup needed and an x-ray of the right hand was obtained as the patient did point to TV with pain on the lateral aspect. The patient had a fracture noted however the patient will be admitted per EMS for suicidal ideation therefore the patient will be elier taped as treatment of his boxer's fracture. Recent literature had shown that elier taping is comparable to splinting and with the patient going to a monitored behavioral health floor, it is with better care for the patient and care in the unit to elier tape the patient's fourth and fifth digit. The patient was told of this plan of admission and was agreeable. The patient was admitted in stable condition. Undiagnosed new problem with uncertain prognosis? @ -No Drug Therapy requiring intensive monitoring for toxicity (Heparin, Nitro, Insulin, Cardizem)? @ -No Were any procedures done? @ -No Diagnosis/symptom? @ -Suicidal ideation Acute, or Chronic, or Acute on Chronic? @ -Acute Uncomplicated (without systemic symptoms) or Complicated (systemic symptoms)? @ -Uncomplicated Side effects of treatment? @ -No Exacerbation, Progression, or Severe Exacerbation? @ -No Poses a threat to life or bodily function? How? (Chest pain, [place], [place], pneumonia, PE, COPD, DKA, ARF, appy, cholecystitis, CVA, Diverticulitis, Homicidal, Suicidal, threat to staff... and all critical care pts) @ -Yes, suicidal ideation can lead to suicide attempt and possible . Diagnosis/symptom? @ -Right boxer's fracture Acute, or Chronic, or Acute on Chronic? @ -Acute Uncomplicated (without systemic symptoms) or Complicated (systemic symptoms)? @ -Uncomplicated Side effects of treatment? @ -none Exacerbation, Progression, or Severe Exacerbation] @ -no Poses a threat to life or bodily function? @ -no Disposition Clinical Impression: Closed boxer's fracture, Suicidal behavior Disposition: ADMITTED IP TO THIS [facility] Condition: Stable Is patient prescribed a controlled substance at d/c from ED?: No Referrals: Lucy Magaña DO [Primary Care Provider] - 1-2 days Time of Disposition: 01:30 Decision to Admit Reason: Admit from EC Decision Date: 01/24/23 Decision Time: 01:30
--- NOTE | 2023-01-24 01:41 | XR ---
EXAM: XR Right Hand Complete, 3 or More Views CLINICAL HISTORY: ITS.REASON XR Reason: Pain, trauma TECHNIQUE: Frontal, lateral and oblique views of the right hand. COMPARISON: No relevant prior studies available. FINDINGS: Bones/joints: Acute nondisplaced fracture through the distal fifth metacarpal shaft with volar angulation of the distal fragment. No other fractures. No dislocation. Soft tissues: Dorsal soft tissue swelling. No radiopaque foreign body. IMPRESSION: 1. Nondisplaced, angulated distal fifth metacarpal bone fracture.
[2023-01-24] MEDS ORDERED: ACETAMINOPHEN TAB 325 MG TAB PO PRN (03:35)
[2023-01-24] MEDS ORDERED: MAG HYDROX/AL HYDROX/SIMETH 30 ML CUP PO PRN (03:35)
[2023-01-24] MEDS ORDERED: MAGNESIUM HYDROXIDE 2,400 MG/10 ML CUP PO PRN (03:35)
[2023-01-24] MEDS ORDERED: LORazepam 2 MG/ML INJ IM PRN (03:40)
[2023-01-24] MEDS ORDERED: LORazepam 1 MG TAB PO PRN (03:40)
[2023-01-24] MEDS ORDERED: haloperidoL 5 MG TAB PO PRN (03:44)
[2023-01-24] MEDS ORDERED: HALOPERIDOL LACTATE 5 MG/ML 1 ML VIAL IM PRN (03:44)
[2023-01-24] MEDS: NICOTINE 14MG/24HR PATCH TRANSDERM SCH (07:37)
[2023-01-24] MEDS ORDERED: lamoTRIgine 25 MG TAB PO STA (10:17)
[2023-01-24 10:22] LABS: Basophils % (A) 1 %; Eosinophils # (A) 0.3 k/uL (0-0.7); Eosinophils % (A) 3 %; HCT 41.9 % (39.0-53.0); HGB 14.3 gm/dL (13.0-17.5); Lymphocytes # (A) 2.7 k/uL (1.0-4.8); Lymphocytes % (A) 34 %; MCV 94.1 fL (80.0-100.0); Mean Platelet Volume 7.9; Monocytes # (A) 0.5 k/uL (0-1.0); Monocytes % (A) 6 %; Neutrophils # (A) 4.2 k/uL (1.3-7.7); Neutrophils % (A) 54 %; Platelet Count 341 k/uL (150-450); RBC 4.46 m/uL (4.30-5.90); RDW 13.1 % (11.5-15.5); WBC 7.9 k/uL (3.8-10.6)
[2023-01-24 10:37] LABS: ALT 62 U/L (4-49); AST 39 U/L (17-59); African American GFR (CKD) >90 (>60 ml/min/1.73 sqM); Albumin 4.3 g/dL (3.5-5.0); Alkaline Phosphatase 82 U/L (38-126); Anion Gap 10 mmol/L; Bilirubin, Delta 0.2 mg/dL (0.0-0.2); Bilirubin,Unconjugated 0.3 mg/dL (0.0-1.1); Blood Urea Nitrogen 8 mg/dL (9-20); Calcium 9.2 mg/dL (8.4-10.2); Carbon Dioxide 26 mmol/L (22-30); Chloride 105 mmol/L (98-107); Glucose 91 mg/dL (74-99); Non-African American GFR(CKD) >90 (>60 ml/min/1.73 sqM); Potassium 4.2 mmol/L (3.5-5.1); Sodium 141 mmol/L (137-145); Total Bilirubin 0.5 mg/dL (0.2-1.3); Total Protein 6.6 g/dL (6.3-8.2)
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
[2023-01-24 16:18] LABS: Chol/HDL Ratio 4.05 Ratio; LDL Cholesterol,Calculated 81.2 mg/dL (0.0-131.0)
[2023-01-24] MEDS: traZODone HCL 50 MG TAB PO SCH (21:12)
[2023-01-24] MEDS: OLANZapine ODT 5 MG TAB PO SCH (21:13)
[2023-01-25] MEDS: NICOTINE 14MG/24HR PATCH TRANSDERM SCH (08:38)
[2023-01-25] MEDS: OLANZapine ODT 5 MG TAB PO SCH (08:38)
[2023-01-25] MEDS ORDERED: lamoTRIgine 25 MG TAB PO SCH (09:00)
[2023-01-25 09:32] LABS: Appearance,Urine Clear (Clear); Bilirubin,Urine Negative (Negative); Blood,Urine Negative (Negative); Color,Urine Yellow; Glucose,Urine (UA) Negative (Negative); Ketones,Urine Negative (Negative); Leukocyte Esterase,Urine Negative (Negative); Nitrite,Urine Negative (Negative); PH, Urine 7.5 (5.0-8.0); Protein,Urine Negative (Negative); Specific Gravity,Urine 1.019 (1.001-1.035); Urobilinogen,Urine <2.0 mg/dL (<2.0)
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
[2023-01-25] MEDS: NICOTINE GUM (POLACRILEX) 2 MG GUM BUCCAL PRN ×2 (13:22→18:56)
[2023-01-25] MEDS: lamoTRIgine 25 MG TAB PO SCH (20:31)
[2023-01-25] MEDS: traZODone HCL 50 MG TAB PO SCH (20:31)
[2023-01-25] MEDS: OLANZapine ODT 10 MG TAB PO SCH (20:32)
[2023-01-25 21:32] LABS: Urine Alcohol Negative (Negative); Urine Barbiturate Negative (Negative); Urine Cocaine Negative (Negative); Urine Methadone Negative (Negative); Urine Opiates Negative (Negative); Urine Phencyclidine Negative (Negative)
[2023-01-26] MEDS: lamoTRIgine 25 MG TAB PO SCH ×2 (09:21→21:39)
[2023-01-26] MEDS: NICOTINE GUM (POLACRILEX) 2 MG GUM BUCCAL PRN ×2 (09:22→21:41)
--- NOTE | 2023-01-26 11:36 | P.PN ---
Progress Note - Text Progress Note Date: 01/26/23 Interval History: Patient was seen resting in bed and was directable and agreeable to speak with com writer in the office. Currently, the patient is not reporting any suicidal or homicidal ideation, intention, and/or plan. He is not reporting any auditory or visual hallucinations. He denies any side effects of his medication. The patient reports no significant concerns regarding his safety while here in the hospital. He reports no paranoia or other delusions. He continues to be concerned that his stepsons do not respect him however he is vehemently denying any intention to hurt them. He does express that he wishes to be with his and in doing so may be at odds with his stepsons. He reports no issues regarding his sleep or his appetite. He denies any medical issues or concerns. Mental Status Exam: General Appearance: Patient appears to be stated age is alert, directable, and cooperative. Behavior: Patient is calmly seated without any agitated behavior. Speech: Patient's speech is fluent and nonpressured. Mood/Affect: Mood is improving mildly, affect is congruent and nonchalant. Suicidality/Homicidality: Patient denies having any suicidal or homicidal ideation intent or plan. Perceptions: Patient denies any visual hallucinations and denies any auditory hallucinations Though content/process: No overt delusional thought content is endorsed today. He is linear and logical in short conversation. Memory and concentration: AOX3, grossly intact for the purposes of this session Judgment and insight: Improving mildly Vital Signs Temp 97.2 F L 01/26/23 06:15 Pulse 74 01/26/23 06:15 Resp 16 01/26/23 06:15 BP 122/90 01/26/23 06:15 Pulse Ox 97 01/24/23 06:25 FiO2 Laboratory Results - Last 24 Hours 01/25/23 09:12 Urine Opiates Screen Negative Urine Methadone Screen Negative Ur Propoxyphene Screen Negative Urine Barbiturates Negative Ur Phencyclidine Scrn Negative Ur Amphetamine Screen Negative U Benzodiazepines Scrn Negative Urine Cocaine Screen Negative U Cannabinoids Screen Negative Urine Alcohol Negative Assessment Bipolar 2 disorder, mixed episode Delusional Disorder, persecutory type Alcohol use disorder Cannabis use disorder Nicotine dependence Rule out schizoaffective disorder Plan: -Patient continues to meet criteria for inpatient psychiatric admission for symptom stabilization and safety. Patient has signed adult voluntary form and medication consent and was placed in patient's chart. Anticipate discharge tomorrow. -Medications: Continue Zyprexa zydis ODT to 10 mg at bedtime for delusional disorder and mood stabilization Continue Lamictal 25 mg twice a day for mood stabilization Trazodone 150 mg at bedtime for insomnia -When necessary Ativan and Haldol for agitation/aggression. -NRT -Nicorette gum -SW on board for discharge planning. Encouraged the patient to participate in milieu.
[2023-01-26] MEDS: traZODone HCL 50 MG TAB PO SCH (21:39)
[2023-01-26] MEDS: OLANZapine ODT 10 MG TAB PO SCH (21:39)
[2023-01-27 07:08] VITALS: BP 116/62; PULSE 53; RESP 14; TEMP 98
[2023-01-27] MEDS: lamoTRIgine 25 MG TAB PO SCH (08:28)
[2023-01-27] MEDS: NICOTINE GUM (POLACRILEX) 2 MG GUM BUCCAL PRN (08:28)
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
== END 2023-01-27 13:17 | disposition home or self-care (01) | DRG 753 ==
LOC: EC 23:18 → 3MHU 01-24 03:30
PROVIDERS: ADMIT Psychiatry & Neurology Psychiatry; ATTEND Psychiatry & Neurology Psychiatry
DX: F31.81 Bipolar II disorder (principal); F12.90 Cannabis use, unspecified, uncomplicated; F17.200 Nicotine dependence, unspecified, uncomplicated; F22 Delusional disorders; F41.9 Anxiety disorder, unspecified; R45.851 Suicidal ideations; S62.339A Displaced fracture of neck of unspecified metacarpal bone, initial encounter for closed fracture; W22.09XA Striking against other stationary object, initial encounter; Z79.899 Other long term (current) drug therapy; Z81.8 Family history of other mental and behavioral disorders
CPT/HCPCS: 80053; 80061; 80306; 81003; 82248; 83036; 84443; 85025; 87635; 99285

== ENCOUNTER 2023-03-14 23:18 | Emergency (ER) | payer OTHER ==
[2023-03-14 23:24] VITALS: TEMP 98.3
[2023-03-15 00:06] LABS: Amphetamine Screen,Urine Not Detected (NotDetected); Barbiturate Screen,Urine Not Detected (NotDetected); Benzodiazepines Screen,Urine Not Detected (NotDetected); Cocaine Screen,Urine Not Detected (NotDetected); Methadone Screen, Urine Not Detected (NotDetected); Opiate Screen,Urine Not Detected (NotDetected); Oxycodone Screen, Urine Not Detected (NotDetected); Phencyclidine Screen,Urine Not Detected (NotDetected); Tricyclic Antidepressant,Urine Not Detected (NotDetected); Urn Cannabinoid Scrn Not Detected (NotDetected)
--- NOTE | 2023-03-15 00:59 | ED ---
General Adult HPI - General Chief complaint: Psychiatric Symptoms Stated complaint: Mental Health Time Seen by Provider: 03/14/23 23:22 Source: patient, police, RN notes reviewed, old records reviewed Mode of arrival: ambulatory - History of Present Illness Initial comments: Patient is a 32-year-old male with past medical history remarkable for polysubstance abuse, psychiatric illness who presents here to department after being petitioned by police. Patient has made suicidal statements that he made sure himself in the head with a gun. Patient also apparently has not been taking his medications. Was brought here for psychiatric evaluation. Patient does endorse suicidal ideations, as well as a plan but denies attempts. States he does have access to firearms. Denies homicidal ideations, attempts, plans. Denies visual or auditory hallucinations. States he has not been taking his medications. Has no physical complaints at this time. He is lying on the ground as he states "I'm practicing being homeless at this time." Presents for further evaluation at this time. - Related Data Previous Rx's Medication Instructions Recorded Cyclobenzaprine [Flexeril] 10 mg PO TID 7 Days #21 tab 04/01/22 Ibuprofen 800 mg PO Q8H 10 Days #30 tab 04/01/22 Nicotine Gum (Polacrilex) 2 mg BUCCAL Q4HR PRN 15 Days #90 01/27/23 [Nicorette] pieceofgum OLANZapine ODT [ZyPREXA Zydis] 10 mg PO HS 30 Days #30 tab 01/27/23 lamoTRIgine [LaMICtal] 25 mg PO BID 30 Days #60 tab 01/27/23 Allergies Allergy/AdvReac Type Severity Reaction Status Date / Time No Known Allergies Allergy Verified 03/14/23 23:25 Review of Systems ROS Statement: Those systems with pertinent positive or pertinent negative responses have been documented in the HPI. Review of Systems: CONST: Denies fever EYES: Denies blurry vision ENT: Denies nasal congestion C/V: Denies Chest pain RESP: Denies shortness of breath GI: Denies abdominal pain : Denies dysuria SKIN: Denies rash. MSK: Denies joint pain. NEURO: Denies headache PSYCH: Denies homicidal ideations/plans/attempts. Denies visual or auditory hallucinations. He endorses suicidal ideation, plan. Denies attempt. ROS Other: All systems not noted in ROS Statement are negative. Past Medical History Past Medical History: No Reported History Additional Past Medical History / Comment(s): possible genital warts History of Any Multi-Drug Resistant Organisms: None Reported Past Surgical History: Hernia Repair Additional Past Surgical History / Comment(s): inguinal hernia Left and Right Past Psychological History: Anxiety, Bipolar, Depression, Schizoaffective Disorder Smoking Status: Current every day smoker General Exam - General Exam Comments Initial Comments: General: Appears in no acute distress. HEAD: Normal with no signs of head trauma. EYES: EOMI. ENT: Hearing grossly intact. RESPIRATORY: No respiratory distress. C/V: Regular rate and rhythm. ABD: Abdomen is nondistended. EXT: No obvious deformity. SKIN: No rashes or lesions observed on exposed skin. NEURO: Alert and oriented. Course Vital Signs 03/14/23 23:19 Temperature 98.3 F Pulse Rate 79 Respiratory 16 Rate Blood Pressure 143/101 O2 Sat by Pulse 99 Oximetry Medical Decision Making - Medical Decision Making Was pt. sent in by a medical professional or institution (NICO Burk, CABLE OPERATOR, urgent care, hospital, or long-term...) When possible be specific @ -No Did you speak to anyone other than the patient for history (EMS, parent, family, police, friend...)? What history was obtained from this source @ -No Did you review nursing and triage notes (agree or disagree)? Why? @ -I reviewed the petition for the patient. Were old charts reviewed (outside hosp., previous admission, EMS record, old EKG, old radiological studies, urgent care reports/EKG's, long-term records)? Report findings @ -No old charts were reviewed Differential Diagnosis (chest pain, altered mental status, abdominal pain women, abdominal pain men, vaginal bleeding, weakness, fever, dyspnea, syncope, headache, dizziness, GI bleed, back pain, seizure, CVA, palpatations, mental health, musculoskeletal)? @ -Differential Mental Health Depression, anxiety, bipolar, psychosis, schizophrenia, borderline personality, situational depression, adjustment disorder, behavioral disorder, brain tumor, malingering, substance abuse, encephalopathy, medication reaction, dementia, hypothyroidism, degenerative neurologic disorder, lupus.... This is not meant to be all-inclusive list EKG interpreted by me (3pts min.). @ -None done X-rays interpreted by me (1pt min.). @ -None done CT interpreted by me (1pt min.). @ -None done U/S interpreted by me (1pt. min.). @ -None done What testing was considered but not performed or refused? (CT, X-rays, U/S, labs)? Why? @ -None What meds were considered but not given or refused? Why? @ -None Did you discuss the management of the patient with other professionals (professionals i.e. , PA, CABLE OPERATOR, lab, RT, psych nurse, social sciences research scientist, direct entry midwife, teacher, juvenile probation officer, case worker)? Give summary @ -EPS notified of consult.Spoke with EPS stated the patient cannot be admitted to this facility as his mother is admitted upstairs. He'll be transferred for mental health admission. Clinical CERT completed at their request. Basic labs completed at their request. Was smoking cessation discussed for >3mins.? @ -No Was critical care preformed (if so, how long)? @ -No Were there social determinants of health that impacted care today? How? (Homelessness, low income, unemployed, alcoholism, drug addiction, transportation, low edu. Level, literacy, decrease access to med. care, long-term, rehab)? @ -No Was there de-escalation of care discussed even if they declined (Discuss DNR or withdrawal of care, Hospice)? DNR status @ -No What co-morbidities impacted this encounter? (DM, HTN, Smoking, COPD, CAD, Cancer, CVA, ARF, Chemo, Hep., AIDS, mental health diagnosis, sleep apnea, morbid obesity)? @ -None Was patient admitted / discharged? Hospital course, mention meds given and route, prescriptions, significant lab abnormalities, going to OR and other pertinent info. @ -Patient is a 32-year-old male who presents for psychiatric evaluation. Has suicidal ideations. Was placed in green scrubs. Sitter and suicide precautions ordered. BAT is 0.066. UDS is pending. Vital signs within acceptable limits. Patient is medically cleared for evaluation by psychiatry. Disposition is pending psychiatric evaluation. EPS notified. I spoke with EPS. Patient will require mental health transfer. Basic labs ordered at the request that were unremarkable. Clinical certification was completed by myself. Patient is pending transfer at this time. Patient was accepted to [facility]. Accepting physician is Dr. Roca. Undiagnosed new problem with uncertain prognosis? @ -No Drug Therapy requiring intensive monitoring for toxicity (Heparin, Nitro, Insulin, Cardizem)? @ -No Were any procedures done? @ -No Diagnosis/symptom? @ -Encounter for psychiatric evaluation, suicidal ideations, history of mental illness Acute, or Chronic, or Acute on Chronic? @ -Acute on chronic Uncomplicated (without systemic symptoms) or Complicated (systemic symptoms)? @ -Uncomplicated Side effects of treatment? @ -No Exacerbation, Progression, or Severe Exacerbation? @ -No Poses a threat to life or bodily function? How? (Chest pain, USA, OK, pneumonia, PE, COPD, DKA, ARF, appy, cholecystitis, CVA, Diverticulitis, Homicidal, Suicidal, threat to staff... and all critical care pts) @ -yes - Lab Data Result diagrams: 03/15/23 01:34 03/15/23 01:34 Lab Results 03/14/23 03/15/23 03/15/23 Range/Units 23:26 01:34 01:34 WBC 8.6 (3.8-10.6) k/uL RBC 4.86 (4.30-5.90) m/uL Hgb 15.4 (13.0-17.5) gm/dL Hct 46.0 (39.0-53.0) % MCV 94.7 (80.0-100.0) fL MCH 31.7 (25.0-35.0) pg MCHC 33.4 (31.0-37.0) g/dL RDW 12.7 (11.5-15.5) % Plt Count 330 (150-450) k/uL MPV 7.5 Neutrophils % 51 % Lymphocytes % 38 % Monocytes % 5 % Eosinophils % 4 % Basophils % 0 % Neutrophils # 4.4 (1.3-7.7) k/uL Lymphocytes # 3.3 (1.0-4.8) k/uL Monocytes # 0.4 (0-1.0) k/uL Eosinophils # 0.3 (0-0.7) k/uL Basophils # 0.0 (0-0.2) k/uL Sodium 144 (137-145) mmol/L Potassium 3.7 (3.5-5.1) mmol/L Chloride 105 (98-107) mmol/L Carbon Dioxide 20 L (22-30) mmol/L Anion Gap 19 mmol/L BUN 11 (9-20) mg/dL Creatinine 0.83 (0.66-1.25) mg/dL Est GFR (CKD-EPI)AfAm >90 (>60 ml/min/1.73 sqM) Est GFR (CKD-EPI)NonAf >90 (>60 ml/min/1.73 sqM) Glucose 134 H (74-99) mg/dL Calcium 9.4 (8.4-10.2) mg/dL Total Bilirubin 0.7 (0.2-1.3) mg/dL AST 41 (17-59) U/L ALT 43 (4-49) U/L Alkaline Phosphatase 85 (38-126) U/L Total Protein 7.5 (6.3-8.2) g/dL Albumin 4.9 (3.5-5.0) g/dL Urine Opiates Screen Not Detected (NotDetected) Ur Oxycodone Screen Not Detected (NotDetected) Urine Methadone Screen Not Detected (NotDetected) Ur Propoxyphene Screen Not Detected (NotDetected) Ur Barbiturates Screen Not Detected (NotDetected) U Tricyclic Antidepress Not Detected (NotDetected) Ur Phencyclidine Scrn Not Detected (NotDetected) Ur Amphetamines Screen Not Detected (NotDetected) U Methamphetamines Scrn Not Detected (NotDetected) U Benzodiazepines Scrn Not Detected (NotDetected) Urine Cocaine Screen Not Detected (NotDetected) U Marijuana (THC) Screen Not Detected (NotDetected) Coronavirus (PCR) (Not Detectd) 03/15/23 Range/Units 01:34 WBC (3.8-10.6) k/uL RBC (4.30-5.90) m/uL Hgb (13.0-17.5) gm/dL Hct (39.0-53.0) % MCV (80.0-100.0) fL MCH (25.0-35.0) pg MCHC (31.0-37.0) g/dL RDW (11.5-15.5) % Plt Count (150-450) k/uL MPV Neutrophils % % Lymphocytes % % Monocytes % % Eosinophils % % Basophils % % Neutrophils # (1.3-7.7) k/uL Lymphocytes # (1.0-4.8) k/uL Monocytes # (0-1.0) k/uL Eosinophils # (0-0.7) k/uL Basophils # (0-0.2) k/uL Sodium (137-145) mmol/L Potassium (3.5-5.1) mmol/L Chloride (98-107) mmol/L Carbon Dioxide (22-30) mmol/L Anion Gap mmol/L BUN (9-20) mg/dL Creatinine (0.66-1.25) mg/dL Est GFR (CKD-EPI)AfAm (>60 ml/min/1.73 sqM) Est GFR (CKD-EPI)NonAf (>60 ml/min/1.73 sqM) Glucose (74-99) mg/dL Calcium (8.4-10.2) mg/dL Total Bilirubin (0.2-1.3) mg/dL AST (17-59) U/L ALT (4-49) U/L Alkaline Phosphatase (38-126) U/L Total Protein (6.3-8.2) g/dL Albumin (3.5-5.0) g/dL Urine Opiates Screen (NotDetected) Ur Oxycodone Screen (NotDetected) Urine Methadone Screen (NotDetected) Ur Propoxyphene Screen (NotDetected) Ur Barbiturates Screen (NotDetected) U Tricyclic Antidepress (NotDetected) Ur Phencyclidine Scrn (NotDetected) Ur Amphetamines Screen (NotDetected) U Methamphetamines Scrn (NotDetected) U Benzodiazepines Scrn (NotDetected) Urine Cocaine Screen (NotDetected) U Marijuana (THC) Screen (NotDetected) Coronavirus (PCR) Not Detected (Not Detectd) Disposition Clinical Impression: Encounter for psychiatric assessment, Suicidal ideation Disposition: TRANSFER TO PSYCH HOSP/UNIT Condition: Stable Referrals: Lucy Magaña DO [Primary Care Provider] - 1-2 days
[2023-03-15 01:51] LABS: Basophils % (A) 0 %; Eosinophils # (A) 0.3 k/uL (0-0.7); Eosinophils % (A) 4 %; HGB 15.4 gm/dL (13.0-17.5); Lymphocytes # (A) 3.3 k/uL (1.0-4.8); Lymphocytes % (A) 38 %; MCH 31.7 pg (25.0-35.0); MCHC 33.4 g/dL (31.0-37.0); MCV 94.7 fL (80.0-100.0); Mean Platelet Volume 7.5; Monocytes # (A) 0.4 k/uL (0-1.0); Monocytes % (A) 5 %; Neutrophils # (A) 4.4 k/uL (1.3-7.7); Neutrophils % (A) 51 %; Platelet Count 330 k/uL (150-450); RBC 4.86 m/uL (4.30-5.90); RDW 12.7 % (11.5-15.5); WBC 8.6 k/uL (3.8-10.6)
[2023-03-15 02:01] LABS: ALT 43 U/L (4-49); AST 41 U/L (17-59); African American GFR (CKD) >90 (>60 ml/min/1.73 sqM); Albumin 4.9 g/dL (3.5-5.0); Alkaline Phosphatase 85 U/L (38-126); Anion Gap 19 mmol/L; Blood Urea Nitrogen 11 mg/dL (9-20); Calcium 9.4 mg/dL (8.4-10.2); Carbon Dioxide 20 mmol/L (22-30); Chloride 105 mmol/L (98-107); Glucose 134 mg/dL (74-99); Non-African American GFR(CKD) >90 (>60 ml/min/1.73 sqM); Potassium 3.7 mmol/L (3.5-5.1); Sodium 144 mmol/L (137-145); Total Bilirubin 0.7 mg/dL (0.2-1.3); Total Protein 7.5 g/dL (6.3-8.2)
[2023-03-15 10:33] VITALS: PULSE 80
[2023-03-15] MEDS ORDERED: LORazepam 1 MG TAB PO STA (11:42)
[2023-03-15 11:49] VITALS: BP 112/67; RESP 18
== END 2023-03-15 11:56 ==
LOC: EC 23:18
DX: Z00.8 Encounter for other general examination (principal); R45.851 Suicidal ideations; F17.200 Nicotine dependence, unspecified, uncomplicated; Z86.59 Personal history of other mental and behavioral disorders; Z20.822 Contact with and (suspected) exposure to COVID-19
CPT/HCPCS: 36415; 80053; 80306; 82075; 85025; 87635; 99285

== ENCOUNTER 2023-08-19 23:24 | Emergency (ER) | payer OTHER ==
--- NOTE | 2023-08-20 00:26 | ED ---
General Adult HPI - General Chief complaint: Psychiatric Symptoms Stated complaint: Mental Health Time Seen by Provider: 08/19/23 23:37 Source: patient, RN notes reviewed Mode of arrival: ambulatory Limitations: no limitations - History of Present Illness Initial comments: 33-year-old male with a history of significant for diabetes, depression, bipolar presents to the emergency department with a chief complaint of psychiatric evaluation. Patient reports that he is suicidal. Patient reports that he does have a plan in which she consults in the head with a gun. He admits to previous attempts. He denies visual or auditory hallucinations. He has been taking his medications as prescribed. He last saw his psychiatric health provider 3 weeks ago. He reports increased stress at home. Denies illicit drug use. - Related Data Previous Rx's Medication Instructions Recorded Cyclobenzaprine [Flexeril] 10 mg PO TID 7 Days #21 tab 04/01/22 Ibuprofen 800 mg PO Q8H 10 Days #30 tab 04/01/22 Nicotine Gum (Polacrilex) 2 mg BUCCAL Q4HR PRN 15 Days #90 01/27/23 [Nicorette] pieceofgum OLANZapine ODT [ZyPREXA Zydis] 10 mg PO HS 30 Days #30 tab 01/27/23 lamoTRIgine [LaMICtal] 25 mg PO BID 30 Days #60 tab 01/27/23 Allergies Allergy/AdvReac Type Severity Reaction Status Date / Time No Known Allergies Allergy Verified 03/14/23 23:25 Review of Systems ROS Statement: Those systems with pertinent positive or pertinent negative responses have been documented in the HPI. ROS Other: All systems not noted in ROS Statement are negative. Past Medical History Past Medical History: No Reported History Additional Past Medical History / Comment(s): possible genital warts History of Any Multi-Drug Resistant Organisms: None Reported Past Surgical History: Hernia Repair Additional Past Surgical History / Comment(s): inguinal hernia Left and Right Past Psychological History: Anxiety, Bipolar, Depression, Schizoaffective Disorder Smoking Status: Current every day smoker General Exam - General Exam Comments Initial Comments: General: Alert, in no acute distress Head: atraumatic normocephalic. Eyes PERRL, EOMI intact, mucous membranes moist Respiratory: Lungs clear to auscultation bilaterally Cardiovascular: Heart rate regular rate and rhythm Abdominal: Soft without guarding or rebound Extremities: Normal inspection with full range of motion and normal capillary refill Neuroogic: alert and oriented 3, CN II-XII intact, able to ambulate with steady gait Skin: warm dry and intact with normal color Limitations: no limitations Course Vital Signs 08/19/23 08/20/23 23:25 06:47 Temperature 98.1 F 97.6 F Pulse Rate 110 H 60 Respiratory 18 17 Rate Blood Pressure 146/101 126/80 O2 Sat by Pulse 98 99 Oximetry - Reevaluation(s) Reevaluation #1: 08/20/23 00:01 should is medically clear for psychiatric evaluation. Reevaluation #2: 08/20/23 16:40 Case discussed with JYOTSNA Arechiga who belives the patient is stable enough for discharge. Medical Decision Making - Medical Decision Making Was pt. sent in by a medical professional or institution (, PA, ATHLETIC SCOUT, urgent care, hospital, or [facility]...) When possible be specific @ -[No] Did you speak to anyone other than the patient for history (EMS, parent, family, police, friend...)? What history was obtained from this source @ -[No] Did you review nursing and triage notes (agree or disagree)? Why? @ -[I reviewed and agree with nursing and triage notes] Were old charts reviewed (outside hosp., previous admission, EMS record, old EKG, old radiological studies, urgent care reports/EKG's, [facility] records)? Report findings @ -[No old charts were reviewed] Differential Diagnosis (chest pain, altered mental status, abdominal pain women, abdominal pain men, vaginal bleeding, weakness, fever, dyspnea, syncope, headache, dizziness, GI bleed, back pain, seizure, CVA, palpatations, mental health, musculoskeletal)? @ -[not applicable] EKG interpreted by me (3pts min.). @ -[As above] X-rays interpreted by me (1pt min.). @ -[None done] CT interpreted by me (1pt min.). @ -[None done] U/S interpreted by me (1pt. min.). @ -[None done] What testing was considered but not performed or refused? (CT, X-rays, U/S, labs)? Why? @ -[None] What meds were considered but not given or refused? Why? @ -[None] Did you discuss the management of the patient with other professionals (professionals i.e. DrCamila, PA, ATHLETIC SCOUT, lab, RT, psych nurse, social group worker, hydraulic miner blasting, teacher, corporation officer, showcase trimmer)? Give summary @ -[No] Was smoking cessation discussed for >3mins.? @ -[No] Was critical care preformed (if so, how long)? @ -[No] Were there social determinants of health that impacted care today? How? (Homelessness, low income, unemployed, alcoholism, drug addiction, transportation, low edu. Level, literacy, decrease access to med. care, [facility], rehab)? @ -[No] Was there de-escalation of care discussed even if they declined (Discuss DNR or withdrawal of care, Hospice)? DNR status @ -[No] What co-morbidities impacted this encounter? (DM, HTN, Smoking, COPD, CAD, Cancer, CVA, ARF, Chemo, Hep., AIDS, mental health diagnosis, sleep apnea, morbid obesity)? @ -[None] Was patient admitted / discharged? Hospital course, mention meds given and route, prescriptions, significant lab abnormalities, going to OR and other pertinent info. @ -Disposition pending. 33-year-old male presents the emergency department with a chief complaint of psychiatric evaluation. Patient is a pleasant for exam performed. Physical exam essentially unremarkable. Heart rate regular rate and rhythm, lungs clear to auscultation bilaterally abdomen soft and nontender. Patient will be held in the ED for further observation until EPS evaluation at 11 AM. Case discussed with Dr. Licona who agrees with plan of care. - Lab Data Lab Results 08/20/23 08/20/23 Range/Units 00:28 00:28 Urine Opiates Screen Not Detected (NotDetected) Ur Oxycodone Screen Not Detected (NotDetected) Urine Methadone Screen Not Detected (NotDetected) Ur Propoxyphene Screen Not Detected (NotDetected) Ur Barbiturates Screen Not Detected (NotDetected) U Tricyclic Antidepress Not Detected (NotDetected) Ur Phencyclidine Scrn Not Detected (NotDetected) Ur Amphetamines Screen Not Detected (NotDetected) U Methamphetamines Scrn Not Detected (NotDetected) U Benzodiazepines Scrn Not Detected (NotDetected) Urine Cocaine Screen Not Detected (NotDetected) U Marijuana (THC) Screen Detected H (NotDetected) Influenza Type A (PCR) Not Detected (Not Detectd) Influenza Type B (PCR) Not Detected (Not Detectd) RSV (PCR) Not Detected (Not Detectd) SARS-CoV-2 (PCR) Not Detected (Not Detectd) Disposition Clinical Impression: Acute anxiety Disposition: HOME SELF-CARE Condition: Stable Additional Instructions: PLease monitor your symptoms closely PLease return to the nearest emergency if worsening symptoms Is patient prescribed a controlled substance at d/c from ED?: No Referrals: Lucy Magaña DO [Primary Care Provider] - 1-2 days Time of Disposition: 16:42
[2023-08-20] MEDS ORDERED: NICOTINE 21MG/24HR PATCH TRANSDERM STA (01:55)
[2023-08-20 02:08] LABS: Amphetamine Screen,Urine Not Detected (NotDetected); Barbiturate Screen,Urine Not Detected (NotDetected); Benzodiazepines Screen,Urine Not Detected (NotDetected); Cocaine Screen,Urine Not Detected (NotDetected); Methadone Screen, Urine Not Detected (NotDetected); Opiate Screen,Urine Not Detected (NotDetected); Oxycodone Screen, Urine Not Detected (NotDetected); Phencyclidine Screen,Urine Not Detected (NotDetected); Tricyclic Antidepressant,Urine Not Detected (NotDetected); Urn Cannabinoid Scrn Detected (NotDetected)
[2023-08-20] MEDS ORDERED: NICOTINE GUM (POLACRILEX) 2 MG GUM BUCCAL STA (02:19)
[2023-08-20] MEDS ORDERED: MELATONIN 1 MG TAB PO SCH ×2 (03:00→21:00)
[2023-08-20 07:07] VITALS: BP 126/80; PULSE 60; RESP 17; TEMP 97.6
== END 2023-08-20 16:51 | disposition home or self-care (01) ==
LOC: EC 23:24
DX: F41.9 Anxiety disorder, unspecified (principal); F17.200 Nicotine dependence, unspecified, uncomplicated; Z20.822 Contact with and (suspected) exposure to COVID-19
CPT/HCPCS: 80306; 82075; 87636; 99285

== ENCOUNTER 2023-11-03 13:50 | Emergency (ER) | payer OTHER ==
[2023-11-03 14:27] VITALS: RESP 18; TEMP 98.2
--- NOTE | 2023-11-03 15:22 | ED ---
Psych HPI - General Chief Complaint: Psychiatric Symptoms Stated Complaint: Mental Health Time Seen by Provider: 11/03/23 15:02 Source: patient, RN notes reviewed Mode of arrival: ambulatory - History of Present Illness Initial Comments: Patient is a 33-year-old male presented to ER with chief complaint of mental health evaluation. Patient states he was recently released from longterm and was in solitary confinement during his stay. Patient states when he is in solitary he starts to feels suicidal. Patient's reports that when he was released from solitary confinement and was in general population his symptoms improved and he was no longer suicidal because he was able to socialize. Patient was released yesterday from longterm and is here today for mental health evaluation. Patient states he has been on medication in the past and has no access to his medication currently because he is kicked out of his home. Patient denies any current SI or HI. Patient denies any chest pain, shortness of breath, fevers, chills, night sweats. - Related Data Home Medications Medication Instructions Recorded Confirmed risperiDONE [RisperDAL] 3 mg PO HS 11/03/23 11/03/23 traZODone HCL 100 mg PO HS PRN 11/03/23 11/03/23 Allergies Allergy/AdvReac Type Severity Reaction Status Date / Time No Known Allergies Allergy Verified 11/03/23 18:09 Review of Systems ROS Statement: Those systems with pertinent positive or pertinent negative responses have been documented in the HPI. ROS Other: All systems not noted in ROS Statement are negative. Past Medical History Past Medical History: No Reported History Additional Past Medical History / Comment(s): possible genital warts History of Any Multi-Drug Resistant Organisms: None Reported Past Surgical History: Hernia Repair Additional Past Surgical History / Comment(s): inguinal hernia Left and Right Past Psychological History: Anxiety, Bipolar, Depression, Schizoaffective Disorder Smoking Status: Current every day smoker Past Alcohol Use History: Occasional Past Drug Use History: Marijuana General Exam Limitations: no limitations General appearance: alert, in no apparent distress Head exam: Present: atraumatic, normocephalic, normal inspection Eye exam: Present: normal appearance, PERRL, EOMI. Absent: scleral icterus, conjunctival injection, periorbital swelling Respiratory exam: Present: normal lung sounds bilaterally. Absent: respiratory distress, wheezes, rales, rhonchi, stridor Cardiovascular Exam: Present: regular rate, normal rhythm, normal heart sounds. Absent: systolic murmur, diastolic murmur, rubs, gallop, clicks Neurological exam: Present: alert, oriented X3, CN II-XII intact Psychiatric exam: Present: anxious Skin exam: Present: warm, dry, intact, normal color. Absent: rash Course Vital Signs 11/03/23 14:07 Temperature 98.2 F Pulse Rate 104 H Respiratory 18 Rate Blood Pressure 150/105 O2 Sat by Pulse 98 Oximetry - Reevaluation(s) Reevaluation #1: 11/03/23 17:43 Case discussed with Fran from EPS Medical Decision Making - Medical Decision Making Was pt. sent in by a medical professional or institution (, PA, FREEZER WORKER, urgent care, hospital, or senior care...) When possible be specific @ -No Did you speak to anyone other than the patient for history (EMS, parent, family, police, friend...)? What history was obtained from this source @ -No Did you review nursing and triage notes (agree or disagree)? Why? @ -I reviewed and agree with nursing and triage notes Were old charts reviewed (outside hosp., previous admission, EMS record, old EKG, old radiological studies, urgent care reports/EKG's, senior care records)? Report findings @ -No old charts were reviewed Differential Diagnosis (chest pain, altered mental status, abdominal pain women, abdominal pain men, vaginal bleeding, weakness, fever, dyspnea, syncope, headache, dizziness, GI bleed, back pain, seizure, CVA, palpatations, mental health, musculoskeletal)? @ -Differential Mental Health Depression, anxiety, bipolar, psychosis, schizophrenia, borderline personality, situational depression, adjustment disorder, behavioral disorder, brain tumor, malingering, substance abuse, encephalopathy, medication reaction, dementia, hypothyroidism, degenerative neurologic disorder, lupus.... This is not meant to be all-inclusive list EKG interpreted by me (3pts min.). @ -None X-rays interpreted by me (1pt min.). @ -None done CT interpreted by me (1pt min.). @ -None done U/S interpreted by me (1pt. min.). @ -None done What testing was considered but not performed or refused? (CT, X-rays, U/S, labs)? Why? @ -None What meds were considered but not given or refused? Why? @ -None Did you discuss the management of the patient with other professionals (professionals i.e. , PA, FREEZER WORKER, lab, RT, psych nurse, medical social worker, highway engineering teacher, teacher, aoc director combat operations officer, major case detective)? Give summary @ -Yes I discussed this case with Fran from [facility] who advised that patient is safe for discharge. Was smoking cessation discussed for >3mins.? @ -No Was critical care preformed (if so, how long)? @ -No Were there social determinants of health that impacted care today? How? (Homelessness, low income, unemployed, alcoholism, drug addiction, transportation, low edu. Level, literacy, decrease access to med. care, longterm, rehab)? @ -Unemployed, low income, recently released from longterm Was there de-escalation of care discussed even if they declined (Discuss DNR or withdrawal of care, Hospice)? DNR status @ -No What co-morbidities impacted this encounter? (DM, HTN, Smoking, COPD, CAD, Cancer, CVA, ARF, Chemo, Hep., AIDS, mental health diagnosis, sleep apnea, morbid obesity)? @ -Mental health Was patient admitted / discharged? Hospital course, mention meds given and route, prescriptions, significant lab abnormalities, going to OR and other pertinent info. @ -Discharge. Patient is a 33 year old male presenting to the ER with the chief complaint of mental health evaluation. Vitals stable. Patient medically cleared for EPS evaluation. Patient spoke with Fran from EPS who set a safety plan and cleared patient for discharge. Patient discharged in stable condition. Patient expressed understanding and agreement with care plan. Undiagnosed new problem with uncertain prognosis? @ -No Drug Therapy requiring intensive monitoring for toxicity (Heparin, Nitro, Insulin, Cardizem)? @ -No Were any procedures done? @ -No Diagnosis/symptom? @ -Mental health evaluation Acute, or Chronic, or Acute on Chronic? @ -Chronic Uncomplicated (without systemic symptoms) or Complicated (systemic symptoms)? @ -Uncomplicated Side effects of treatment? @ -No Exacerbation, Progression, or Severe Exacerbation? @ -No Poses a threat to life or bodily function? How? (Chest pain, [place], [place], pneumonia, PE, COPD, DKA, ARF, appy, cholecystitis, CVA, Diverticulitis, Homicidal, Suicidal, threat to staff... and all critical care pts) @ -No Disposition Clinical Impression: Anxiety, Mental health problem Disposition: HOME SELF-CARE Condition: Stable Additional Instructions: Please return to the ER for any new or worsening symptoms. Is patient prescribed a controlled substance at d/c from ED?: No Referrals: Lucy Magaña DO [Primary Care Provider] - 1-2 days Time of Disposition: 18:43
[2023-11-03 19:14] VITALS: BP 148/96; PULSE 88
== END 2023-11-03 18:53 | disposition home or self-care (01) ==
LOC: EC 13:50
DX: Z00.8 Encounter for other general examination (principal); F41.9 Anxiety disorder, unspecified; F31.9 Bipolar disorder, unspecified; F12.90 Cannabis use, unspecified, uncomplicated; F17.200 Nicotine dependence, unspecified, uncomplicated; Z79.899 Other long term (current) drug therapy
CPT/HCPCS: 82075; 99284

== ENCOUNTER 2023-11-19 20:10 | Emergency (ER) | payer OTHER ==
[2023-11-19 20:23] VITALS: RESP 18; TEMP 97.8
--- NOTE | 2023-11-19 21:26 | ED ---
Psych HPI - General Source: patient, EMS Mode of arrival: EMS <Alisa Roldan - Last Filed: 11/20/23 02:22> - General Source: RN notes reviewed, old records reviewed Limitations: no limitations <Terry Wang - Last Filed: 11/30/23 00:43> - General Chief Complaint: Psychiatric Symptoms Stated Complaint: Altered Mental Time Seen by Provider: 11/19/23 20:34 - History of Present Illness Initial Comments: 33-year-old male with history of schizoaffective disorder and bipolar disorder presenting for mental health evaluation. Patient states that he has not been consistently taking his medications which include trazodone and Risperdal. He states "I think I need to be evaluated". He denies any suicidal or homicidal ideation. Tells me that he feels similar to previous schizoaffective episodes. He states that today he walked several miles and is complaining of some blisters on his feet. He states that when he arrived to his destination he was not where he thought he would end up and this alarmed him and prompted him to come to the ER for mental health evaluation. States he has taken some THC Gummies today. No alcohol and no other drugs. No other complaints at this time. Patient is pleasant and cooperative (Alisa Roldan) This is a 33-year-old male to the ER for evaluation of significant anxiety (Terry Wang) - Related Data Home Medications Medication Instructions Recorded Confirmed No Known Home Medications 11/19/23 11/19/23 Allergies Allergy/AdvReac Type Severity Reaction Status Date / Time No Known Allergies Allergy Verified 11/19/23 21:45 Review of Systems ROS Other: All systems not noted in ROS Statement are negative. <Alisa Roldan - Last Filed: 11/20/23 02:22> ROS Other: All systems not noted in ROS Statement are negative. <Terry Wang - Last Filed: 11/30/23 00:43> ROS Statement: Those systems with pertinent positive or pertinent negative responses have been documented in the HPI. Past Medical History Past Medical History: No Reported History Additional Past Medical History / Comment(s): possible genital warts History of Any Multi-Drug Resistant Organisms: None Reported Past Surgical History: Hernia Repair Additional Past Surgical History / Comment(s): inguinal hernia Left and Right Past Psychological History: Anxiety, Bipolar, Depression, Schizoaffective Disorder Smoking Status: Current every day smoker Past Alcohol Use History: Occasional Past Drug Use History: Marijuana <Alisa Roldan - Last Filed: 11/20/23 02:22> General Exam General appearance: alert, in no apparent distress Head exam: Present: atraumatic, normocephalic Eye exam: Present: normal appearance Neck exam: Present: normal inspection. Absent: tenderness Respiratory exam: Present: normal lung sounds bilaterally. Absent: respiratory distress, wheezes, rales, rhonchi, stridor Cardiovascular Exam: Present: regular rate, normal rhythm, normal heart sounds. Absent: systolic murmur, diastolic murmur, rubs, gallop, clicks Neurological exam: Present: alert, altered (Somewhat confused conversation, patient is able to be redirected) Psychiatric exam: Present: manic. Absent: homicidal ideation, suicidal ideation Skin exam: Present: warm, dry <Alisa Roldan - Last Filed: 11/20/23 02:22> General appearance: alert, in no apparent distress Head exam: Present: atraumatic, normocephalic, normal inspection Eye exam: Present: normal appearance, PERRL, EOMI. Absent: scleral icterus, conjunctival injection, periorbital swelling ENT exam: Present: normal exam, mucous membranes moist Neck exam: Present: normal inspection. Absent: tenderness, meningismus, lymphadenopathy Respiratory exam: Present: normal lung sounds bilaterally. Absent: respiratory distress, wheezes, rales, rhonchi, stridor Cardiovascular Exam: Present: regular rate, normal rhythm, normal heart sounds. Absent: systolic murmur, diastolic murmur, rubs, gallop, clicks GI/Abdominal exam: Present: soft, normal bowel sounds. Absent: distended, tenderness, guarding, rebound, rigid Extremities exam: Present: normal inspection, full ROM, normal capillary refill. Absent: tenderness, pedal edema, joint swelling, calf tenderness Back exam: Present: normal inspection Neurological exam: Present: alert, oriented X3, CN II-XII intact Psychiatric exam: Present: normal affect, normal mood Skin exam: Present: warm, dry, intact, normal color. Absent: rash <Terry Wang - Last Filed: 11/30/23 00:43> Course <NorakentrellDelevelyn Brandon - Last Filed: 11/30/23 00:43> Vital Signs 11/19/23 11/20/23 20:11 10:29 Temperature 97.8 F Pulse Rate 99 98 Respiratory 18 18 Rate Blood Pressure 141/96 142/84 O2 Sat by Pulse 95 97 Oximetry - Reevaluation(s) Reevaluation #1: Medical records reviewed (Terry Wang) Medical Decision Making <Alisa Roldan - Last Filed: 11/20/23 02:22> <Terry Wang - Last Filed: 11/30/23 00:43> - Medical Decision Making Was pt. sent in by a medical professional or institution (Dr. PA, NURSERY LABORER, urgent care, hospital, or shelter...) When possible be specific @ -No Did you speak to anyone other than the patient for history (EMS, parent, family, police, friend...)? What history was obtained from this source @ -No Did you review nursing and triage notes (agree or disagree)? Why? @ -I reviewed and agree with nursing and triage notes Were old charts reviewed (outside hosp., previous admission, EMS record, old EKG, old radiological studies, urgent care reports/EKG's, shelter records)? Report findings @ -No old charts were reviewed Differential Diagnosis (chest pain, altered mental status, abdominal pain women, abdominal pain men, vaginal bleeding, weakness, fever, dyspnea, syncope, headache, dizziness, GI bleed, back pain, seizure, CVA, palpatations, mental health, musculoskeletal)? @ -Differential Mental Health Depression, anxiety, bipolar, psychosis, schizophrenia, borderline personality, situational depression, adjustment disorder, behavioral disorder, brain tumor, malingering, substance abuse, encephalopathy, medication reaction, dementia, hypothyroidism, degenerative neurologic disorder, lupus.... This is not meant to be all-inclusive list EKG interpreted by me (3pts min.). @ -As above X-rays interpreted by me (1pt min.). @ -None done CT interpreted by me (1pt min.). @ -None done U/S interpreted by me (1pt. min.). @ -None done What testing was considered but not performed or refused? (CT, X-rays, U/S, labs)? Why? @ -None What meds were considered but not given or refused? Why? @ -None Did you discuss the management of the patient with other professionals (professionals i.e. , PA, NURSERY LABORER, lab, RT, psych nurse, bilingual social worker, lawyer real estate, teacher, financial aid officer, medical case manager)? Give summary @ -No Was smoking cessation discussed for >3mins.? @ -No Was critical care preformed (if so, how long)? @ -No Were there social determinants of health that impacted care today? How? (Homelessness, low income, unemployed, alcoholism, drug addiction, transportation, low edu. Level, literacy, decrease access to med. care, [facility], rehab)? @ -No Was there de-escalation of care discussed even if they declined (Discuss DNR or withdrawal of care, Hospice)? DNR status @ -No What co-morbidities impacted this encounter? (DM, HTN, Smoking, COPD, CAD, Cancer, CVA, ARF, Chemo, Hep., AIDS, mental health diagnosis, sleep apnea, mo rbid obesity)? @ -None Was patient admitted / discharged? Hospital course, mention meds given and route, prescriptions, significant lab abnormalities, going to OR and other pertinent info. @ -33-year-old male presenting for mental health evaluation. History of bipolar and schizoaffective disorder, admits that he has not been consistently taking his medications. History and physical exam conducted. Patient is cleared for evaluation by EPS and awaiting evaluation in the morning. Patient is signed out to my attending. (Alisa Roldan) 33 male, seen eval by psychiatry here in the ER and safe for discharge home (Terry Wang) - Lab Data Lab Results 11/19/23 Range/Units 22:26 Urine Color Yellow Urine Appearance Clear (Clear) Urine pH 6.0 (5.0-8.0) Ur Specific [place] 1.029 (1.001-1.035) Urine Protein Trace H (Negative) Urine Glucose (UA) Negative (Negative) Urine Ketones Negative (Negative) Urine Blood Negative (Negative) Urine Nitrite Negative (Negative) Urine Bilirubin Negative (Negative) Urine Urobilinogen <2.0 (<2.0) mg/dL Ur Leukocyte Esterase Negative (Negative) Urine Opiates Screen Not Detected (NotDetected) Ur Oxycodone Screen Not Detected (NotDetected) Urine Methadone Screen Not Detected (NotDetected) Ur Barbiturates Screen Not Detected (NotDetected) U Tricyclic Antidepress Not Detected (NotDetected) Ur Phencyclidine Scrn Not Detected (NotDetected) Ur Amphetamines Screen Not Detected (NotDetected) U Methamphetamines Scrn Not Detected (NotDetected) U Benzodiazepines Scrn Not Detected (NotDetected) Urine Cocaine Screen Not Detected (NotDetected) U Marijuana (THC) Screen Detected H (NotDetected) Disposition <Alisa Roldan - Last Filed: 11/20/23 02:22> Is patient prescribed a controlled substance at d/c from ED?: No <Terry Wang - Last Filed: 11/30/23 00:43> Clinical Impression: Acute anxiety Disposition: HOME SELF-CARE Condition: Good Instructions (If sedation given, give patient instructions): Mood Disorders (ED) Referrals: Lucy Magaña DO [Primary Care Provider] - 1-2 days
[2023-11-19 22:35] LABS: Appearance,Urine Clear (Clear); Bilirubin,Urine Negative (Negative); Blood,Urine Negative (Negative); Color,Urine Yellow; Glucose,Urine (UA) Negative (Negative); Ketones,Urine Negative (Negative); Leukocyte Esterase,Urine Negative (Negative); Nitrite,Urine Negative (Negative); Protein,Urine Trace (Negative); Specific Gravity,Urine 1.029 (1.001-1.035); Urobilinogen,Urine <2.0 mg/dL (<2.0)
[2023-11-19 23:07] LABS: Amphetamine Screen,Urine Not Detected (NotDetected); Barbiturate Screen,Urine Not Detected (NotDetected); Benzodiazepines Screen,Urine Not Detected (NotDetected); Cocaine Screen,Urine Not Detected (NotDetected); Methadone Screen, Urine Not Detected (NotDetected); Opiate Screen,Urine Not Detected (NotDetected); Oxycodone Screen, Urine Not Detected (NotDetected); Phencyclidine Screen,Urine Not Detected (NotDetected); Tricyclic Antidepressant,Urine Not Detected (NotDetected); Urn Cannabinoid Scrn Detected (NotDetected)
[2023-11-20] MEDS: NICOTINE GUM (POLACRILEX) 2 MG GUM BUCCAL STA (03:29)
[2023-11-20 10:33] VITALS: BP 142/84; PULSE 98
== END 2023-11-20 10:37 | disposition home or self-care (01) ==
LOC: EC 20:10
DX: F41.9 Anxiety disorder, unspecified (principal); F12.90 Cannabis use, unspecified, uncomplicated; F17.200 Nicotine dependence, unspecified, uncomplicated; Z86.59 Personal history of other mental and behavioral disorders
CPT/HCPCS: 80306; 81003; 82075; 99285

== ENCOUNTER 2024-02-20 12:40 | Inpatient (IN) | payer MEDICAID, OTHER ==
--- NOTE | 2024-02-20 12:52 | ED ---
Psych HPI - General Source: patient, police, RN notes reviewed Mode of arrival: wheelchair Limitations: no limitations <Asmita George - Last Filed: 02/20/24 13:40> <Terry Smith - Last Filed: 02/20/24 15:29> - General Chief Complaint: Psychiatric Symptoms Stated Complaint: Petition Time Seen by Provider: 02/20/24 12:50 - History of Present Illness Initial Comments: Quick Note: This is a 33-year-old male who presents to the emergency department for psychiatric evaluation. Patient presents with officers from [facility] department where he is currently incarcerated. They report a history of schizoaffective and bipolar disorder. They state that he is not sleeping and currently exhibiting strange behavior. (Asmita George) This is a 33-year-old male who [facility] the [facility]. [facility] evaluated the patient today and thought he was acutely psychotic and filled out a petition for the patient to come to the hospital be evaluated. Patient according to the petition was crawling around the floor flooding his toilet and walking around in the sewage. Patient was saying bizarre things throughout the day. Patient himself denies being suicidal or homicidal and states he is just extremely tired. Patient does not admit to doing these b izarre things or saying these bizarre things at this time. Patient denies any physical complaints today. (Terry Smith) - Related Data Home Medications Medication Instructions Recorded Confirmed Divalproex Sodium [Depakote] 500 mg PO HS 02/20/24 02/20/24 Paliperidone IM [Invega Sustenna] 234 mg IM Q28D 02/20/24 02/20/24 haloperidoL [Haldol] 5 mg PO BID 02/20/24 02/20/24 traZODone HCL [Desyrel] 100 mg PO HS 02/20/24 02/20/24 Allergies Allergy/AdvReac Type Severity Reaction Status Date / Time No Known Allergies Allergy Verified 02/20/24 15:16 Review of Systems ROS Other: All systems not noted in ROS Statement are negative. <Asmita George - Last Filed: 02/20/24 13:40> ROS Other: All systems not noted in ROS Statement are negative. <Terry Smith - Last Filed: 02/20/24 15:29> ROS Statement: Those systems with pertinent positive or pertinent negative responses have been documented in the HPI. Past Medical History Past Medical History: No Reported History Additional Past Medical History / Comment(s): possible genital warts History of Any Multi-Drug Resistant Organisms: None Reported Past Surgical History: Hernia Repair Additional Past Surgical History / Comment(s): inguinal hernia Left and Right Past Psychological History: Anxiety, Bipolar, Depression, Schizoaffective Disorder Smoking Status: Current every day smoker Past Alcohol Use History: Occasional Past Drug Use History: Marijuana <Asmita George - Last Filed: 02/20/24 13:40> General Exam <Asmita George - Last Filed: 02/20/24 13:40> <Terry Smith - Last Filed: 02/20/24 15:29> - General Exam Comments Initial Comments: Visual Physical Exam Vital signs reviewed General: Well-appearing, nontoxic, no acute distress. Head: Normocephalic, atraumatic Eyes: PERRLA, EOMI ENT: Airway patent Chest: Nonlabored breathing Skin: No visual rash, normal skin tone Neuro: Alert and oriented 3 Musculoskeletal: No gross abnormalities (Asmita George) GENERAL: Patient is well-developed and well-nourished. Patient is nontoxic and well- hydrated and is in no acute distress. ENT: Neck is soft and supple. No significant lymphadenopathy is noted. Oropharynx is clear. Moist mucous membranes. Neck has full range of motion without eliciting any pain. EYES: The sclera were anicteric and conjunctiva were pink and moist. Extraocular movements were intact and pupils were equal round and reactive to light. Eyelids were unremarkable. PULMONARY: Unlabored respirations. Good breath sounds bilaterally. No audible rales rhonchi or wheezing was noted. CARDIOVASCULAR: There is a regular rate and rhythm without any murmurs gallops or rubs. ABDOMEN: Soft and nontender with normal bowel sounds. SKIN: Skin is clear with no lesions or rashes and otherwise unremarkable. NEUROLOGIC: Patient is alert and oriented x3. Cranial nerves II through XII are grossly intact. Motor and sensory are also intact. Normal speech, volume and content. Symmetrical smile. MUSCULOSKELETAL: Normal extremities with adequate strength and full range of motion. No lower extremity swelling or edema. No calf tenderness. LYMPHATICS: No significant lymphadenopathy is noted PSYCHIATRIC: Patient denies suicidal homicidal ideations. Patient states he felt safe at the [facility] and he said nothing bizarre to me while in the emergency department (Terry Smith) Course Vital Signs 02/20/24 13:35 Temperature 98.8 F Pulse Rate 88 Respiratory 16 Rate Blood Pressure 126/83 O2 Sat by Pulse 97 Oximetry Medical Decision Making <Asmita George - Last Filed: 02/20/24 13:40> <Terry Smith - Last Filed: 02/20/24 15:29> - Medical Decision Making I performed the QuickNote portion of this chart. Signed Asmita George PA-C. (Asmita George) Was pt. sent in by a medical professional or institution (NICO Burk, BAR TACKER SEWING MACHINE, urgent care, hospital, or [place] facility...) When possible be specific @ -Patient was sent in by the [facility] Did you speak to anyone other than the patient for history (EMS, parent, family, police, friend...)? What history was obtained from this source @ -I spoke with the engraver rubber's who brought the patient Did you review nursing and triage notes (agree or disagree)? Why? @ -I reviewed and agree with nursing and triage notes Were old charts reviewed (outside hosp., previous admission, EMS record, old EKG, old radiological studies, urgent care reports/EKG's, [place] health [place] facility records)? Report findings @ -I reviewed [facility]'s petition that was done at the [facility]. It indicated the patient was acutely psychotic Differential Diagnosis (chest pain, altered mental status, abdominal pain women, abdominal pain men, vaginal bleeding, weakness, fever, dyspnea, syncope, headache, dizziness, GI bleed, back pain, seizure, CVA, palpatations, mental health, musculoskeletal)? @ -Differential Mental Health Depression, anxiety, bipolar, psychosis, schizophrenia, borderline personality, situational depression, adjustment disorder, behavioral disorder, brain tumor, malingering, substance abuse, encephalopathy, medication reaction, dementia, hypothyroidism, degenerative neurologic disorder, lupus.... This is not meant to be all-inclusive list EKG interpreted by me (3pts min.). @ -As above X-rays interpreted by me (1pt min.). @ -None done CT interpreted by me (1pt min.). @ -None done U/S interpreted by me (1pt. min.). @ -None done What testing was considered but not performed or refused? (CT, X-rays, U/S, labs)? Why? @ -None What meds were considered but not given or refused? Why? @ -None Did you discuss the management of the patient with other professionals (professionals i.e. , PA, BAR TACKER SEWING MACHINE, lab, RT, psych nurse, social services director, cosmetics presser, teacher, disability insurance hearing officer, continuous pillowcase cutter)? Give summary @ -I spoke with EPS they evaluated the patient and spoke with the psychiatrist and agreed the patient needed to be admitted. Was smoking cessation discussed for >3mins.? @ -No Was critical care preformed (if so, how long)? @ -No Were there social determinants of health that impacted care today? How? (Homelessness, low income, unemployed, alcoholism, drug addiction, transportation, low edu. Level, literacy, decrease access to med. care, [facility], rehab)? @ -No Was there de-escalation of care discussed even if they declined (Discuss DNR or withdrawal of care, Hospice)? DNR status @ -No What co-morbidities impacted this encounter? (DM, HTN, Smoking, COPD, CAD, Cancer, CVA, ARF, Chemo, Hep., AIDS, mental health diagnosis, sleep apnea, morbid obesity)? @ -None Was patient admitted / discharged? Hospital course, mention meds given and route, prescriptions, significant lab abnormalities, going to OR and other pertinent info. @ -I filled out a clinical certification and patient will be admitted to the psychiatric floor Undiagnosed new problem with uncertain prognosis? @ -No Drug Therapy requiring intensive monitoring for toxicity (Heparin, Nitro, Insuli n, Cardizem)? @ -No Were any procedures done? @ -No Diagnosis/symptom? @ -Acute psychosis Acute, or Chronic, or Acute on Chronic? @ -Acute Uncomplicated (without systemic symptoms) or Complicated (systemic symptoms)? @ -Complicated Side effects of treatment? @ -No Exacerbation, Progression, or Severe Exacerbation? @ -No Poses a threat to life or bodily function? How? (Chest pain, USA, DC, pneumonia, PE, COPD, DKA, ARF, appy, cholecystitis, CVA, Diverticulitis, Homicidal, Suicidal, threat to staff... and all critical care pts) @ -No (Terry Smith) Disposition <Asmita George - Last Filed: 02/20/24 13:40> Time of Disposition: 15:29 <Terry Smith - Last Filed: 02/20/24 15:29> Clinical Impression: Psychosis Disposition: ADMITTED IP TO THIS HOSP Referrals: Luyc Magaña DO [Primary Care Provider] - 1-2 days
[2024-02-20] MEDS ORDERED: MAGNESIUM HYDROXIDE 2,400 MG/30 ML CUP PO PRN (17:32)
[2024-02-20] MEDS ORDERED: ACETAMINOPHEN TAB 325 MG TAB PO PRN (17:32)
[2024-02-20] MEDS: NICOTINE 14MG/24HR PATCH TRANSDERM SCH (19:24)
[2024-02-20] MEDS: HALOPERIDOL LACTATE 5 MG/ML 1 ML VIAL IM PRN (20:47)
[2024-02-20] MEDS: LORazepam 2 MG/ML INJ IM PRN (20:47)
[2024-02-20] MEDS: traZODone HCL 100 MG TAB PO SCH (22:04)
[2024-02-20] MEDS: DIVALPROEX 500 MG TABLET.DR PO SCH (22:04)
[2024-02-21] MEDS: IBUPROFEN 600 MG TAB PO PRN (04:19)
[2024-02-21] MEDS: LORazepam 1 MG TAB PO PRN (09:16)
--- NOTE | 2024-02-21 14:00 | P.HP ---
Psychiatric H&P - . H&P Date: 02/21/24 History & Physical: Allergies Allergy/AdvReac Type Severity Reaction Status Date / Time No Known Allergies Allergy Verified 02/20/24 15:16 Vital Signs Temp 97.8 F 02/20/24 18:36 Pulse 104 H 02/20/24 18:36 Resp 16 02/20/24 18:36 BP 140/79 02/20/24 18:36 Pulse Ox 98 02/20/24 18:36 FiO2 Intake & Output 02/20/24 02/21/24 02/21/24 18:59 06:59 18:59 Weight 83.688 kg Laboratory Last Values SARS-CoV-2 (PCR) Not Detected (Not Detectd) 02/20/24 15:30 02/21/24 08:56 IDENTIFYING DATA: Patient is a 33-year-old male. , but . Currently in halfway. Unemployed. No children. homeless HPI: Patient presented to the hospital on 02/19, transported to the ED from halfway. As per EPS note, " Cl sitting in bed A/O x4 brought in via PD transports from halfway on [facility] due to "psychosis." [facility] due to probation violation related to previous Dom Marlene charges they received in October 2023. Cl presents with long tangential thoughts unrelated to their mental health. Cl was redirected a few times. Cl reports not sleeping while in halfway, but could not report how long it had been since they slept. Cl asked deputies a few times about what they were doing while in halfway and how long it had been since they slept. Cl is calm and cooperative, appearing confused and disorganized. [facility] observation report states cl was pounding on their cell door repeatedly, yelling at times, pacing their cell, speaking erratically, crawling around on halfway floor, flooding cell, standing on a table in the cell, stating random answers that don't make sense. " Today, patient states that he flooded his room at halfway, and was acting "foolish". "I took a couple shits, and a couple pisses, and was throwing stuff under my bed" He states his stressors are halfway, and the separation with his . appears to have poor hygiene and grooming. He states that he is depressed and anxious from time to time. He claims to sleep well, and his appetite is good. Patient was seen initially in the dining [place], but met lyric writer in his room at the bedside. Patient agreeable to treatment and medications, so he signed an AFV. Patient denies any suicidal or homicidal ideations intent or plan. At this time patient denies any auditory or visual hallucinations. Patient denies any flight of ideas racing thoughts and increased in goal directed behavior. Patient admits to using marijuana, alcohol on occasion, and chewing tobacco. PAST PSYCHIATRIC HISTORY: Patient was last on our unit in January of last year.Patient states that he has been previously diagnosed bipolar disorder. As per chart review, the patient has previously been prescribed Risperdal, Risperdal Consta, and Lamictal. currently on Invega Sustena 234mg last recieved 02/13/24. He states he has had a few attempts at suicide. PMH:As per ER note ALLERGIES: as per EMR CHEMICAL DEPENDENCY HISTORY: as per HPI FAMILY PSYCHIATRIC/SUBSTANCE USE HISTORY: The patient reports that his mother was admitted onto psychiatric unit has schizophrenia, and his brother has ADHD. SOCIAL HISTORY: Patient was born and raised in [place]. He is since May 2021. He currently is separeted from his . He is currently unemployed. He was studying liberal arts but was one semester short of graduation. He denies any significant history of physical or sexual abuse. His parents when he was 15 or 16 years old. He reports that he was raised [employer] but is currently nonpracticing. He reports that he has been incarcerated for multiple charges including felonious assault and retail fraud in the past. Patient currently incarcerated for domestic violence, and violation of a PPO MENTAL STATUS EXAM: General Appearance: Patient appears to be stated age is alert, directable, and attempts to cooperate. Patient appears to have fair hygiene and grooming. Shaggy hair, ellington, multiple tattoos. Behavior: Patient is calmly seated without agitated behavior, guarded Speech: Patient's speech is fluent and nonpressured. Mood/Affect: Patient reports their mood is "a little depressed". Affect is congruent and constricted Suicidality/Homicidality: Patient denies homicidal ideation but reports suicidal ideation Perceptions: Patient denies any visual hallucinations and denies any auditory hallucinations Though content/process: There is no evidence of any delusional thought content and thought process is linear and goal-directed. Memory and concentration: AOX3, grossly intact for the purposes of this session. Can spell "WORLD" backwards Judgment and insight: poor STRENGTHS/WEAKNESSES: strength is that patient is [resilient]. Weakness is that patient [has poor judgment and is impulsive] INTELLECT: [average] IMPRESSIONS: schizoaffective disorder Alcohol use disorder, mild Cannabis use disorder nicotine dependance legal problems homelessness PLAN: -Patient is admitted under voluntary status to [facility] for stabilization of psychiatric symptoms and safety. Patient has signed adult voluntary form and is placed in patient's chart. -Medications : trazodone 50mg qhs prn for sleep, zyprexa 5mg qhs for psychosis adjunct/insomnia, depakote 500mg daily for mood stabilization, patient received Invega Sustena 234mg 02/13/24, next dose due 03/12/24 -Ativan and Haldol PRN for agitation/aggression -Patient was counselled on substance abuse and desired to cut back on use -Patient was informed of the risks, benefits and side effects of the medication and patient verbally consented to taking the medications -Internal Medicine consult to perform medical evaluation and physical. -NRT - nicotine patch -SW on board for discharge planning. Encourage patient to participate in groups to work on coping skills.
[2024-02-21] MEDS: NICOTINE GUM (POLACRILEX) 2 MG GUM BUCCAL PRN (17:53)
[2024-02-21] MEDS: OLANZapine 5 MG TAB PO SCH (20:32)
[2024-02-22 09:12] LABS: Basophils % (A) 0 %; Eosinophils # (A) 0.2 k/uL (0-0.7); Eosinophils % (A) 3 %; HCT 42.8 % (39.0-53.0); HGB 13.6 gm/dL (13.0-17.5); Lymphocytes # (A) 2.2 k/uL (1.0-4.8); Lymphocytes % (A) 41 %; MCH 30.8 pg (25.0-35.0); MCHC 31.7 g/dL (31.0-37.0); MCV 97.2 fL (80.0-100.0); Mean Platelet Volume 7.9; Monocytes # (A) 0.4 k/uL (0-1.0); Monocytes % (A) 7 %; Neutrophils # (A) 2.5 k/uL (1.3-7.7); Neutrophils % (A) 46 %; Platelet Count 315 k/uL (150-450); RBC 4.41 m/uL (4.30-5.90); RDW 12.2 % (11.5-15.5); WBC 5.5 k/uL (3.8-10.6)
[2024-02-22 09:25] LABS: ALT 21 U/L (4-49); AST 23 U/L (17-59); African American GFR (CKD) >90 (>60 ml/min/1.73 sqM); Albumin 4.2 g/dL (3.5-5.0); Alkaline Phosphatase 72 U/L (38-126); Anion Gap 6 mmol/L; Blood Urea Nitrogen 7 mg/dL (9-20); Calcium 9.6 mg/dL (8.4-10.2); Carbon Dioxide 27 mmol/L (22-30); Chloride 108 mmol/L (98-107); Glucose 106 mg/dL (74-99); Non-African American GFR(CKD) >90 (>60 ml/min/1.73 sqM); Potassium 4.1 mmol/L (3.5-5.1); Sodium 141 mmol/L (137-145); Total Bilirubin 0.6 mg/dL (0.2-1.3); Total Protein 6.3 g/dL (6.3-8.2)
[2024-02-22 09:33] LABS: Valproic Acid (Depakene) 46.7 ug/mL
--- NOTE | 2024-02-22 10:31 | P.PN ---
Progress Note - Text Progress Note Date: 02/22/24 Interval History: Patient was seen in his room, and was directable and agreeable to speak with owen sam at the bedside. Patient states that he is all right today, and he thinks he is ready to go home. Antitank Assault Gunner spoke with patient about discharge planning, and discharging safely, patient agreeable. Patient claims to have slept well last night, and stated his appetite is good. He offers no other complaints. He does states that he is fairly anxious and sad about his home situation. Patient is mainly secluding himself to his room. At this time patient denies any suicidal or homical ideations, intent or plan. Patient denies any auditory, visual hallucinations and denies any paranoia or delusions. Patient denies any side effects from the medications and has been compliant with meds. MENTAL STATUS EXAM: General Appearance: Patient appears to be stated age is alert, directable, and attempts to cooperate. Patient appears to have fair hygiene and grooming. Shaggy hair, ellington, multiple tattoos. Behavior: Patient is calmly seated without agitated behavior, guarded, more pleasant today Speech: Patient's speech is fluent and nonpressured. Mood/Affect: Patient reports their mood is "anxious and sad". Affect is congruent and constricted, improving mildly Suicidality/Homicidality: Patient denies homicidal ideation but reports suicidal ideation Perceptions: Patient denies any visual hallucinations and denies any auditory hallucinations Though content/process: There is no evidence of any delusional thought content and thought process is linear and goal-directed. Memory and concentration: AOX3, grossly intact for the purposes of this session. Judgment and insight: chronically poor, improving mildly IMPRESSIONS: schizoaffective disorder Alcohol use disorder, mild Cannabis use disorder nicotine dependance legal problems homelessness PLAN: -Patient is admitted under voluntary status to [facility] for stabilization of psychiatric symptoms and safety. Patient has signed adult voluntary form and is placed in patient's chart. -Medications : trazodone 50 mg qhs prn for sleep, zyprexa 5mg qhs for psychosis adjunct/insomnia, depakote 500mg daily for mood stabilization, patient received Invega Sustena 234mg 02/13/24, next dose due 03/12/24 -Ativan and Haldol PRN for agitation/aggression -NRT - nicotine patch -SW on board for discharge planning. Encourage patient to participate in groups to work on coping skills. Likely discharge Monday, back to residential, if patient psychiatrically improves.
[2024-02-22 15:10] LABS: Chol/HDL Ratio 3.42 Ratio; LDL Cholesterol,Calculated 88.3 mg/dL (0.0-131.0)
[2024-02-22] MEDS: LORazepam 1 MG TAB PO PRN (19:01)
[2024-02-22] MEDS: OLANZapine 7.5 MG TAB PO SCH (19:46)
[2024-02-22] MEDS: DIVALPROEX ER 500 MG TAB.ER.24H PO SCH (19:46)
[2024-02-23] MEDS ORDERED: BENZTROPINE MESYLATE 1 MG TAB PO PRN (11:45)
--- NOTE | 2024-02-23 11:50 | P.PN ---
Progress Note - Text Progress Note Date: 02/23/24 Interval History: Patient was seen in his room, and was directable and agreeable to speak with owen sam at the bedside. Patient had his eyes closed, appeared to be mildly lethargic today. He was seen earlier in the hallways wandering and greeted internal communications writer this morning however had his jaw clenched and was talking despite opening his mouth. Patient has been noted to be responding to internal stimuli on the unit and making bizarre hand gestures. Patient offers no overnight complaints, states that he is doing well in terms of his mood and anxiety. He was fairly concrete, vague. he is noted to be checking every closed door on the unit. At this time patient denies any suicidal or homicidal ideations, intent or plan. Patient denies any auditory, visual hallucinations and denies any paranoia or delusions. Patient denies any side effects from the medications and has been compliant with meds. MENTAL STATUS EXAM: General Appearance: Patient appears to be stated age is alert, directable, and attempts to cooperate. Patient appears to have fair hygiene and grooming. Shaggy hair, ellington, multiple tattoos. Behavior: Patient is calmly seated without agitated behavior, guarded, bizarre. Speech: Patient's speech is fluent and nonpressured. Mood/Affect: Patient reports their mood is "ok". Affect is incongruent and constricted, improving mildly Suicidality/Homicidality: Patient denies homicidal ideation but reports suicidal ideation Perceptions: Patient denies any visual hallucinations and denies any auditory hallucinations Though content/process: There is no evidence of any delusional thought content and thought process is linear and goal-directed. [place], poverty of content. Memory and concentration: AOX3, grossly intact for the purposes of this session. Judgment and insight: chronically poor, improving mildly IMPRESSIONS: schizoaffective disorder Alcohol use disorder, mild Cannabis use disorder nicotine dependance legal problems homelessness PLAN: -Patient is admitted under voluntary status to [facility] for stabilization of psychiatric symptoms and safety. Patient has signed adult voluntary form and is placed in patient's chart. -Medications : trazodone 50 mg qhs prn for sleep, d/c zyprexa and invega due to ineffectiveness, changed to Prolixin PO 3 mg bid with plan to increase as tolerated. continue with depakote 500mg daily for mood stabilization, patient received Invega Sustena 234mg 02/13/24 -Ativan and Haldol PRN for agitation/aggression -NRT - nicotine patch -SW on board for discharge planning. Encourage patient to participate in groups to work on coping skills. Likely discharge Monday-monday once patient is more stable and transitioned onto [facility] he will be going back to shelter, if patient psychiatrically improves.
[2024-02-24] MEDS: traZODone HCL 50 MG TAB PO PRN (03:20)
--- NOTE | 2024-02-24 11:44 | P.PN ---
Subjective Progress Note Date: 02/24/24 Principal diagnosis: IMPRESSIONS: schizoaffective disorder Alcohol use disorder, mild Cannabis use disorder nicotine dependance legal problems homelessness atient Name: Ziggy Luciano Date of : 88 Patient Status: Inpatient Attending Provider: Aren Lugo Date: 02/24/24 Initialization Date: 02/23/24 08:39 Active Medications Acetaminophen (Acetaminophen Tab 325 Mg Tab) 650 mg PO Q4HR PRN PRN Reason: Mild Pain (Scale 1 to 3) Al Hydroxide/Mg Hydroxide (Mag Hydrox/Al Hydrox/Simeth 355 Ml Bottle) 30 ml PO Q4HR PRN PRN Reason: GI Upset Benztropine Mesylate (Benztropine Mesylate 1 Mg Tab) 1 mg PO BID PRN PRN Reason: eps reaction/muscle spasms Divalproex Sodium (Divalproex Er 500 Mg Tab.Er.24h) [address] [facility] Last Admin: 02/23/24 20:08 Dose: 500 mg Fluphenazine HCl (Fluphenazine 1 Mg Tab) 3 mg PO BID [facility] Last Admin: 02/24/24 08:33 Dose: 3 mg Haloperidol (Haloperidol 5 Mg Tab) 5 mg PO Q6HR PRN PRN Reason: Agitation Haloperidol Lactate (Haloperidol Lactate 5 Mg/Ml 1 Ml Vial) 5 mg IM Q6HR PRN PRN Reason: Severe Agitation Last Admin: 02/20/24 20:47 Dose: 5 mg Ibuprofen (Ibuprofen 600 Mg Tab) 600 mg PO Q6HR PRN PRN Reason: Moderate Pain (Scale 4 to 6) Last Admin: 02/23/24 21:40 Dose: 600 mg Lorazepam (Lorazepam 2 Mg/Ml Inj) 2 mg IM Q6HR PRN PRN Reason: Severe Agitation Last Admin: 02/20/24 20:47 Dose: 2 mg Lorazepam (Lorazepam 1 Mg Tab) 1 mg PO Q6HR PRN PRN Reason: Anxiety Last Admin: 02/24/24 03:34 Dose: 1 mg Magnesium Hydroxide (Magnesium Hydroxide 2,400 Mg/30 Ml Cup) 2,400 mg PO DAILY PRN PRN Reason: Constipation Nicotine (Nicotine 14mg/24hr Patch) 1 patch TRANSDERM DAILY [facility] Last Admin: 02/24/24 08:33 Dose: 1 patch Nicotine Polacrilex (Nicotine Gum (Polacrilex) 2 Mg Gum) 2 mg BUCCAL Q4HR PRN PRN Reason: Nicotine Cravings Last Admin: 02/24/24 10:21 Dose: 2 mg Trazodone HCl (Trazodone Hcl 50 Mg Tab) 50 mg PO HS PRN PRN Reason: Insomnia Last Admin: 02/24/24 03:20 Dose: 50 mg Interval History: the patient was seen chart was reviewed and case discussed with the nursing staff the patient was seen wandering around the hallway and was seen near the telephone menjivar Patient reports that he was having problems with visiting his ex because their son was demanding to be visiting the father He also reports that they live in the house that's provided by the effects and that he has been demanding his to get rid of it Patient hasn't been on a tangent continues to ramble about unrelated things and has much difficulty with concentration and attention span Thought processes shows derailment and euphoria Patient is difficult to engage in any other discussion MENTAL STATUS EXAM: General Appearance: Patient appears to be stated age is alert, not directable, . Patient appears to have fair hygiene and grooming. Shaggy hair, ellington, multiple tattoos. Behavior: Patient is walking aroundwithout agitated behavior, guarded, bizarre. Speech: Patient's speech is pressured Mood/Affect: Patient reports their mood is "ok". Affect is incongruent and constricted, improving mildly Suicidality/Homicidality: Patient denies homicidal ideation but reports suicidal ideation Perceptions: Patient denies any visual hallucinations and denies any auditory hallucinations Though content/process: patient exhibits delusional thinking with flight of ideas Memory and concentration: AOX3, grossly intact for the purposes of this session. Judgment and insight: chronically poor, IMPRESSIONS: schizoaffective disorder Alcohol use disorder, mild Cannabis use disorder nicotine dependance legal problems homelessness PLAN: review the current treatment plan andintervention -Patient is admitted under voluntary status to [facility]HU for stabilization of psychiatric symptoms and safety. Patient has signed adult voluntary form and is placed in patient's chart. -Medications : trazodone 50 mg qhs prn for sleep, d/c zyprexa and invega due to ineffectiveness, changed to Prolixin PO 3 mg bid with plan to increase as tolerated. continue with depakote 500mg daily for mood stabilization, patient received Invega Sustena 234mg 02/13/24 -Ativan and Haldol PRN for agitation/aggression -NRT - nicotine patch - on board for discharge planning. Encourage patient to participate in groups to work on coping skills. Likely discharge Monday-monday once patient is more stable and transitioned onto [facility] he will be going back to halfway, if patient psychiatrically improves. Dorian Arrieta M.D. Objective - Vital Signs Vital signs: Vital Signs Temp 97.3 F L 02/24/24 03:22 Pulse 86 02/24/24 03:22 Resp 16 02/24/24 03:22 BP 146/86 02/24/24 03:22 Pulse Ox 98 02/24/24 03:22 FiO2 - Labs CBC & Chem 7: 02/22/24 08:17 02/22/24 08:17
[2024-02-24] MEDS: haloperidoL 5 MG TAB PO PRN (15:33)
--- NOTE | 2024-02-25 11:01 | P.PN ---
Subjective Progress Note Date: 02/25/24 Principal diagnosis: IMPRESSIONS: schizoaffective disorder Alcohol use disorder, mild Cannabis use disorder nicotine dependance legal problems homelessness atient Name: Ziggy Luciano Date of : 88 Patient Status: Inpatient Attending Provider: Aren Lugo Date: 02/25/24 Initialization Date: 02/23/24 08:39 Active Medications Acetaminophen (Acetaminophen Tab 325 Mg Tab) 650 mg PO Q4HR PRN PRN Reason: Mild Pain (Scale 1 to 3) Al Hydroxide/Mg Hydroxide (Mag Hydrox/Al Hydrox/Simeth 355 Ml Bottle) 30 ml PO Q4HR PRN PRN Reason: GI Upset Benztropine Mesylate (Benztropine Mesylate 1 Mg Tab) 1 mg PO BID PRN PRN Reason: eps reaction/muscle spasms Divalproex Sodium (Divalproex Er 500 Mg Tab.Er.24h) 500 mg PO [facility] Last Admin: 02/23/24 20:08 Dose: 500 mg Fluphenazine HCl (Fluphenazine 1 Mg Tab) 3 mg PO BID [facility] Last Admin: 02/24/24 08:33 Dose: 3 mg Haloperidol (Haloperidol 5 Mg Tab) 5 mg PO Q6HR PRN PRN Reason: Agitation Haloperidol Lactate (Haloperidol Lactate 5 Mg/Ml 1 Ml Vial) 5 mg IM Q6HR PRN PRN Reason: Severe Agitation Last Admin: 02/20/24 20:47 Dose: 5 mg Ibuprofen (Ibuprofen 600 Mg Tab) 600 mg PO Q6HR PRN PRN Reason: Moderate Pain (Scale 4 to 6) Last Admin: 02/23/24 21:40 Dose: 600 mg Lorazepam (Lorazepam 2 Mg/Ml Inj) 2 mg IM Q6HR PRN PRN Reason: Severe Agitation Last Admin: 02/20/24 20:47 Dose: 2 mg Lorazepam (Lorazepam 1 Mg Tab) 1 mg PO Q6HR PRN PRN Reason: Anxiety Last Admin: 02/24/24 03:34 Dose: 1 mg Magnesium Hydroxide (Magnesium Hydroxide 2,400 Mg/30 Ml Cup) 2,400 mg PO DAILY PRN PRN Reason: Constipation Nicotine (Nicotine 14mg/24hr Patch) 1 patch TRANSDERM DAILY [facility] Last Admin: 02/24/24 08:33 Dose: 1 patch Nicotine Polacrilex (Nicotine Gum (Polacrilex) 2 Mg Gum) 2 mg BUCCAL Q4HR PRN PRN Reason: Nicotine Cravings Last Admin: 02/24/24 10:21 Dose: 2 mg Trazodone HCl (Trazodone Hcl 50 Mg Tab) 50 mg PO HS PRN PRN Reason: Insomnia Last Admin: 02/24/24 03:20 Dose: 50 mg Interval History: the patient was seen chart was reviewed and case discussed with the nursing staff patient was seen in the [facility] walking around states that he was getting some exercise Patient denies that he is having any issues or problems Patient states that he has no issues or concerns and does not feel that he needs to be here He denies any auditory or visual hallucinations He denies any thoughts of wanting to harm himself or others He states that he slept very well last night He denies any side effects MENTAL STATUS EXAM: General Appearance: Patient appears to be stated age is alert, not directable, . Patient appears to have fair hygiene and grooming. Shaggy hair, ellington, multiple tattoos. Behavior: Patient is walking aroundwithout agitated behavior, guarded, bizarre. Speech: Patient's speech is pressured Mood/Affect: Patient reports their mood is "ok". Affect is incongruent and cons tricted, improving mildly Suicidality/Homicidality: Patient denies homicidal ideation but reports suicidal ideation Perceptions: Patient denies any visual hallucinations and denies any auditory hallucinations Though content/process: patient exhibits delusional thinking with flight of ideas Memory and concentration: AOX3, grossly intact for the purposes of this session. Judgment and insight: chronically poor, IMPRESSIONS: schizoaffective disorder Alcohol use disorder, mild Cannabis use disorder nicotine dependance legal problems homelessness PLAN: review the current treatment plan andintervention -Patient is admitted under voluntary status to MHU for stabilization of psychiatric symptoms and safety. Patient has signed adult voluntary form and is placed in patient's chart. -Medications : trazodone 50 mg qhs prn for sleep, d/c zyprexa and invega due to ineffectiveness, changed to Prolixin PO 3 mg bid with plan to increase as tolerated. continue with depakote 500mg daily for mood stabilization, patient received Invega Sustena 234mg 02/13/24 -Ativan and Haldol PRN for agitation/aggression -NRT - nicotine patch -SW on board for discharge planning. Encourage patient to participate in groups to work on coping skills. Likely discharge Monday-monday once patient is more stable and transitioned onto [facility] he will be going back to halfway, if patient psychiatrically improves. Dorian Arrieta M.D. Objective - Vital Signs Vital signs: Vital Signs Temp 97.5 F L 02/24/24 06:00 Pulse 90 02/24/24 06:00 Resp 17 02/24/24 06:00 BP 139/87 02/24/24 06:00 Pulse Ox 99 02/24/24 06:00 FiO2 Intake & Output 02/24/24 02/25/24 02/25/24 18:59 06:59 18:59 Weight 87.997 kg - Labs CBC & Chem 7: 02/22/24 08:17 02/22/24 08:17
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
[2024-02-26] MEDS: DIVALPROEX ER 500 MG TAB.ER.24H PO SCH (20:51)
--- NOTE | 2024-02-27 13:24 | P.PN ---
Progress Note - Text Progress Note Date: 02/27/24 Clinical Problems: Schizoaffective disorder, alcohol use disorder mild, cannabis use disorder, nicotine use disorder, legal problems, homelessness Interim history: I reviewed the medical record, interviewed the patient and discussed the treatment and treatment plan with the treatment team. He denied problems or concerns. History of treatment inpatient unit and nursing reported 1 episode of behavioral dyscontrol that did not require more than redirection. He only slept 2 hours last night. He attended 1 therapeutic group during which he was restless and intrusive. Mental status exam: He presented as a casually groomed young male who was pleasant on approach. He made eye contact and appeared to attend the interview. He showed no abnormal psychomotor activity. His speech was spontaneous, slightly pressured. Affect was elevated. No suicidal ideation, versus homicidal ideation. No depressive cognitions. No clear ideas of reference, paranoia ideation, delusions or overt overvalued ideas. Thinking was concrete. He did not appear to be responding to internal stimuli. Assessment: Much less intrusive and disruptive than yesterday. No reported side effects increased dose of Depakote and Prolixin. Possible early response to treatment. Plan: Continue Cogentin 1 mg twice daily as needed, Depakote 500 mg twice daily, Prolixin 5 mg twice daily Haldol and or Ativan for agitation or aggressive behavior. Habitrol and/or Nicorette gum for smoking cessation. Evaluate clinical response to treatment on daily basis. Discharge back to retirement when he is clinically stable.
[2024-02-28 07:00] VITALS: BP 123/80; PULSE 99; RESP 16; TEMP 97.3
[2024-02-28] MEDS: MAG HYDROX/AL HYDROX/SIMETH 355 ML BOTTLE PO PRN (11:20)
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
[2024-03-12] MEDS ORDERED: PALIPERIDONE IM 234 MG/1.5 ML SYG IM SCH (09:00)
== END 2024-02-28 16:50 | DRG 750 ==
LOC: EC 12:40 → 3MHU 16:01 → 1SOBS 02-21 00:57 → 3MHU 02-21 00:57
PROVIDERS: ADMIT Psychiatry & Neurology Psychiatry; ATTEND Psychiatry & Neurology Psychiatry
DX: F25.0 Schizoaffective disorder, bipolar type (principal); F10.10 Alcohol abuse, uncomplicated; F12.10 Cannabis abuse, uncomplicated; Z11.52 Encounter for screening for COVID-19; G47.00 Insomnia, unspecified; K59.00 Constipation, unspecified; M62.838 Other muscle spasm; F17.200 Nicotine dependence, unspecified, uncomplicated; Z71.6 Tobacco abuse counseling; Z79.899 Other long term (current) drug therapy; Z59.00 Homelessness unspecified; Z65.3 Problems related to other legal circumstances; Z56.0 Unemployment, unspecified; Z71.51 Drug abuse counseling and surveillance of drug abuser
CPT/HCPCS: 80053; 80061; 80164; 82075; 83036; 84443; 85025; 87635; 99285

== ENCOUNTER 2024-03-10 17:47 | Inpatient (IN) | payer MEDICAID, OTHER ==
--- NOTE | 2024-03-10 18:50 | ED ---
General Adult HPI - General Chief complaint: Psychiatric Symptoms Stated complaint: mental health Time Seen by Provider: 03/10/24 18:49 Source: patient, family Mode of arrival: ambulatory Limitations: no limitations - History of Present Illness Initial comments: Patient presents to the ED with his family for evaluation. Per preston, the patient was just released from nursing home 3 days ago, and he has been "delusional" and "manic" since then. He states that they cannot understand what the patient is saying at times. Patient has a history of schizophrenia and bipolar disorder per preston. Patient states that he was getting his psychiatric meds only sporadically while in nursing home. Patient denies suicidal or homicidal ideations. Patient denies alcohol or illicit drug use. Patient denies medication abuse or overdose. Patient denies trauma or injury. Patient denies having any pain, dyspnea, dizziness, nausea or vomiting, or any other symptoms or complaints. Patient's stepson states that his mother is currently petitioning the patient. - Related Data Previous Rx's Medication Instructions Recorded Divalproex ER [Depakote ER] 500 mg PO BID #60 tab 02/28/24 Nicotine 14Mg/24Hr Patch [Habitrol] 1 patch TRANSDERM DAILY #14 patch 02/28/24 fluPHENAZine [Prolixin] 5 mg PO BID #60 tab 02/28/24 traZODone HCL [Desyrel] 50 mg PO HS PRN #30 tab 02/28/24 Allergies Allergy/AdvReac Type Severity Reaction Status Date / Time No Known Allergies Allergy Verified 03/10/24 19:25 Review of Systems ROS Statement: Those systems with pertinent positive or pertinent negative responses have been documented in the HPI. ROS Other: All systems not noted in ROS Statement are negative. Past Medical History Past Medical History: No Reported History Additional Past Medical History / Comment(s): possible genital warts History of Any Multi-Drug Resistant Organisms: None Reported Past Surgical History: Hernia Repair Additional Past Surgical History / Comment(s): inguinal hernia Left and Right Past Psychological History: Anxiety, Bipolar, Depression, Schizoaffective Disorder Smoking Status: Current every day smoker Past Alcohol Use History: Occasional Past Drug Use History: Marijuana General Exam Limitations: no limitations General appearance: alert Head exam: Present: atraumatic, normocephalic Eye exam: Present: normal appearance, PERRL, EOMI ENT exam: Present: mucous membranes moist Neck exam: Present: other (Trachea is in midline). Absent: tenderness, meningismus Respiratory exam: Present: normal lung sounds bilaterally. Absent: respiratory distress, wheezes, rales, rhonchi, stridor Cardiovascular Exam: Present: regular rate, normal rhythm, normal heart sounds, other (Normal radial pulses bilaterally) GI/Abdominal exam: Present: soft. Absent: distended, tenderness, guarding Extremities exam: Absent: tenderness, pedal edema, calf tenderness Neurological exam: Present: alert, CN II-XII intact, other (Patient is oriented to person and place, but not to time). Absent: motor sensory deficit Psychiatric exam: Present: manic, other (Psychotic) Skin exam: Present: warm, dry, intact, normal color Course Vital Signs 03/10/24 17:58 Temperature 99.6 F Pulse Rate 104 H Respiratory 16 Rate Blood Pressure 136/92 O2 Sat by Pulse 100 Oximetry - Reevaluation(s) Reevaluation #1: 03/10/24 23:03 Kenia with EPS states that they will be admitting the patient to the psychiatric unit here. She requests that I complete a cert on the patient. He has no further recommendations at this time. Medical Decision Making - Medical Decision Making Was pt. sent in by a medical professional or institution (, PA, FARM MACHINE OPERATOR, urgent care, hospital, or half-way...) When possible be specific @ -No Did you speak to anyone other than the patient for history (EMS, parent, family, police, friend...)? What history was obtained from this source @ -History was also obtained from the patient's stepson Did you review nursing and triage notes (agree or disagree)? Why? @ -I reviewed and agree with nursing and triage notes Were old charts reviewed (outside hosp., previous admission, EMS record, old EKG, old radiological studies, urgent care reports/EKG's, half-way records)? Report findings @ -No old charts were reviewed Differential Diagnosis (chest pain, altered mental status, abdominal pain women, abdominal pain men, vaginal bleeding, weakness, fever, dyspnea, syncope, headache, dizziness, GI bleed, back pain, seizure, CVA, palpatations, mental health, musculoskeletal)? @ -Depression, anxiety, psychosis, bipolar disorder, schizophrenia, drug abuse, mental health disease, alcohol abuse, medication noncompliance EKG interpreted by me (3pts min.). @ -None done X-rays interpreted by me (1pt min.). @ -None done CT interpreted by me (1pt min.). @ -None done U/S interpreted by me (1pt. min.). @ -None done What testing was considered but not performed or refused? (CT, X-rays, U/S, labs)? Why? @ -None What meds were considered but not given or refused? Why? @ -None Did you discuss the management of the patient with other professionals (pr ofessionals i.e. , PA, FARM MACHINE OPERATOR, lab, RT, psych nurse, social media editor, human resources officer, teacher, first officer, case fitter)? Give summary @ -As above. Was smoking cessation discussed for >3mins.? @ -No Was critical care preformed (if so, how long)? @ -No Were there social determinants of health that impacted care today? How? (Homelessness, low income, unemployed, alcoholism, drug addiction, transportatio n, low edu. Level, literacy, decrease access to med. care, nursing home, rehab)? @ -No Was there de-escalation of care discussed even if they declined (Discuss DNR or withdrawal of care, Hospice)? DNR status @ -No What co-morbidities impacted this encounter? (DM, HTN, Smoking, COPD, CAD, Cancer, CVA, ARF, Chemo, Hep., AIDS, mental health diagnosis, sleep apnea, morbid obesity)? @ -None Was patient admitted / discharged? Hospital course, mention meds given and route, prescriptions, significant lab abnormalities, going to OR and other pertinent info. @ -Patient has been medically cleared. Patient appears acutely psychotic. EPS has evaluated the patient in the ED, and he will be admitted to the inpatient psychiatric unit here. I have completed the patient's cert myself. Undiagnosed new problem with uncertain prognosis? @ -No Drug Therapy requiring intensive monitoring for toxicity (Heparin, Nitro, Insulin, Cardizem)? @ -No Were any procedures done? @ -No Diagnosis/symptom? @ -Acute psychosis Acute, or Chronic, or Acute on Chronic? @ -Acute Uncomplicated (without systemic symptoms) or Complicated (systemic symptoms)? @ -Default Side effects of treatment? @ -No Exacerbation, Progression, or Severe Exacerbation? @ -No Poses a threat to life or bodily function? How? (Chest pain, USA, NC, pneumonia, PE, COPD, DKA, ARF, appy, cholecystitis, CVA, Diverticulitis, Homicidal, Suicidal, threat to staff... and all critical care pts) @ -No - Lab Data Lab Results 03/10/24 Range/Units 20:01 Urine Opiates Screen Not Detected (NotDetected) Ur Oxycodone Screen Not Detected (NotDetected) Urine Methadone Screen Not Detected (NotDetected) Ur Barbiturates Screen Not Detected (NotDetected) U Tricyclic Antidepress Not Detected (NotDetected) Ur Phencyclidine Scrn Not Detected (NotDetected) Ur Amphetamines Screen Not Detected (NotDetected) U Methamphetamines Scrn Not Detected (NotDetected) U Benzodiazepines Scrn Not Detected (NotDetected) Urine Cocaine Screen Not Detected (NotDetected) U Marijuana (THC) Screen Detected H (NotDetected) Disposition Clinical Impression: Acute psychosis, Marijuana abuse Disposition: ADMITTED IP TO THIS [facility] Condition: Stable Is patient prescribed a controlled substance at d/c from ED?: No Referrals: None,Stated [REFERRING] - 1-2 days Time of Disposition: 23:03
[2024-03-10 20:28] LABS: Amphetamine Screen,Urine Not Detected (NotDetected); Barbiturate Screen,Urine Not Detected (NotDetected); Benzodiazepines Screen,Urine Not Detected (NotDetected); Cocaine Screen,Urine Not Detected (NotDetected); Methadone Screen, Urine Not Detected (NotDetected); Opiate Screen,Urine Not Detected (NotDetected); Oxycodone Screen, Urine Not Detected (NotDetected); Phencyclidine Screen,Urine Not Detected (NotDetected); Tricyclic Antidepressant,Urine Not Detected (NotDetected); Urn Cannabinoid Scrn Detected (NotDetected)
[2024-03-11] MEDS ORDERED: HALOPERIDOL LACTATE 5 MG/ML 1 ML VIAL IM PRN (00:33)
[2024-03-11] MEDS ORDERED: MAGNESIUM HYDROXIDE 2,400 MG/30 ML CUP PO PRN (00:33)
[2024-03-11] MEDS ORDERED: LORazepam 2 MG/ML INJ IM PRN (00:33)
[2024-03-11] MEDS ORDERED: MAG HYDROX/AL HYDROX/SIMETH 355 ML BOTTLE PO PRN (00:33)
[2024-03-11] MEDS: traZODone HCL 50 MG TAB PO PRN (01:14)
[2024-03-11 01:41] LABS: Appearance,Urine Clear (Clear); Bilirubin,Urine Negative (Negative); Blood,Urine Negative (Negative); Color,Urine Light Yellow; Glucose,Urine (UA) Negative (Negative); Ketones,Urine Negative (Negative); Leukocyte Esterase,Urine Negative (Negative); Nitrite,Urine Negative (Negative); Protein,Urine Negative (Negative); Specific Gravity,Urine 1.018 (1.001-1.035); Urobilinogen,Urine <2.0 mg/dL (<2.0)
[2024-03-11] MEDS: haloperidoL 5 MG TAB PO PRN (01:48)
[2024-03-11] MEDS: LORazepam 1 MG TAB PO PRN (05:17)
[2024-03-11] MEDS: BENZTROPINE MESYLATE 1 MG TAB PO ONE (05:58)
[2024-03-11] MEDS: LORazepam 1 MG TAB PO STA (05:58)
[2024-03-11] MEDS: haloperidoL 5 MG TAB PO STA (05:58)
[2024-03-11] MEDS: NICOTINE 14MG/24HR PATCH TRANSDERM SCH (05:59)
[2024-03-11] MEDS ORDERED: BENZTROPINE MESYLATE 1 MG TAB PO SCH (09:00)
--- NOTE | 2024-03-11 12:10 | P.HP ---
Psychiatric H&P - . H&P Date: 03/11/24 History & Physical: Allergies Allergy/AdvReac Type Severity Reaction Status Date / Time No Known Allergies Allergy Verified 03/10/24 19:25 Vital Signs Temp 97.8 F 03/11/24 01:00 Pulse 73 03/11/24 07:23 Resp 18 03/11/24 07:23 BP 110/70 03/11/24 05:50 Pulse Ox 98 03/11/24 07:23 FiO2 Intake & Output 03/10/24 03/11/24 03/11/24 18:59 06:59 18:59 Weight 81.647 kg 81.647 kg Laboratory Last Values Urine Color Light Yellow 03/11/24 00:00 Urine Appearance Clear (Clear) 03/11/24 00:00 Urine pH 6.0 (5.0-8.0) 03/11/24 00:00 Ur Specific Kathleen 1.018 (1.001-1.035) 03/11/24 00:00 Urine Protein Negative (Negative) 03/11/24 00:00 Urine Glucose (UA) Negative (Negative) 03/11/24 00:00 Urine Ketones Negative (Negative) 03/11/24 00:00 Urine Blood Negative (Negative) 03/11/24 00:00 Urine Nitrite Negative (Negative) 03/11/24 00:00 Urine Bilirubin Negative (Negative) 03/11/24 00:00 Urine Urobilinogen <2.0 mg/dL (<2.0) 03/11/24 00:00 Ur Leukocyte Esterase Negative (Negative) 03/11/24 00:00 Urine Opiates Screen Not Detected (NotDetected) 03/10/24 20:01 Ur Oxycodone Screen Not Detected (NotDetected) 03/10/24 20:01 Urine Methadone Screen Not Detected (NotDetected) 03/10/24 20:01 Ur Barbiturates Screen Not Detected (NotDetected) 03/10/24 20:01 U Tricyclic Antidepress Not Detected (NotDetected) 03/10/24 20:01 Ur Phencyclidine Scrn Not Detected (NotDetected) 03/10/24 20:01 Ur Amphetamines Screen Not Detected (NotDetected) 03/10/24 20:01 U Methamphetamines Scrn Not Detected (NotDetected) 03/10/24 20:01 U Benzodiazepines Scrn Not Detected (NotDetected) 03/10/24 20:01 Urine Cocaine Screen Not Detected (NotDetected) 03/10/24 20:01 U Marijuana (THC) Screen Detected (NotDetected) H 03/10/24 20:01 SARS-CoV-2 (PCR) Not Detected (Not Detectd) 03/10/24 23:10 03/11/24 08:58 IDENTIFYING DATA: Patient is a 33-year-old male. , but . Unemployed. No children. homeless HPI: Patient presented to the hospital on 03/10. As per EPS, "Patient lying in bed calm and cooperative at present intially came into triage rambling and making nonsensical statements. Recently out of detention 3-4 days ago. Informs this magnetic tape typewriter operator that he his sleep has been erratic and he is supposed to start a job on Monday but doesn't know if he can. Admits to anger issues with but cannot explain why. Talks about being an old soul and riding on his bike. Disorganized thoughts. States is leg twitch is an coordinates with his anxiety. Unable to explain specific events that lead to EC visit. Repeated things not right at home. Spoke with who petitioned patient and informed this magnetic tape typewriter operator that patient has slept since he got home. Walks around the house rambling, piling things up in several spots, mixing his food together and then not eating. also reports verbal aggression and belligerence. No medications taken since patient returned from detention." Patient denies any suicidal or homicidal ideations intent or plan. At this time patient denies any auditory or visual hallucinations. Patient denies any flight of ideas racing thoughts and increased in goal directed behavior. Patient admits to using marijuana, alcohol on occasion, and chewing tobacco. Today, patient was sleeping heavily in bed, and was difficult to awaken. He muttered a few answers when prompted several times. received prn meds earlier and has been seen responding to internal stimuli in the hallways. PAST PSYCHIATRIC HISTORY: Patient was last on our unit in february of this year. Patient states that he has been previously diagnosed bipolar disorder. As per chart review, the patient has previously been prescribed Risperdal, Risperdal Consta, and Lamictal. currently on Invega Sustena 234mg last recieved 02/13/24. He states he has had a few attempts at suicide. PMH:As per ER note ALLERGIES: as per EMR CHEMICAL DEPENDENCY HISTORY: as per HPI FAMILY PSYCHIATRIC/SUBSTANCE USE HISTORY: The patient reports that his mother was admitted onto psychiatric unit has schizophrenia, and his brother has ADHD. SOCIAL HISTORY: Patient was born and raised in [place]. He is since May 2021. He currently is from his . He is currently unemployed. He was studying liberal arts but was one semester short of graduation. He denies any significant history of physical or sexual abuse. His parents when he was 15 or 16 years old. He reports that he was raised Jehovah'S Witness but is currently nonpracticing. He reports that he has been incarcerated for multiple charges including felonious assault and retail fraud in the past. Patient recently incarcerated for domestic violence, and violation of a PPO MENTAL STATUS EXAM: General Appearance: Patient appears to be stated age is alert, drowsy, hard to arouse, and attempts to cooperate. Patient appears to have fair hygiene and grooming. Shaggy hair, ellington, multiple tattoos. Behavior: Patient is laying in bed without agitated behavior, difficult to arouse. Speech: Patient's speech is garbled. Mood/Affect: Unable to assess, due to drowsiness. Affect is congruent and constricted Suicidality/Homicidality: Patient denies homicidal ideation but reports suicidal ideation Perceptions: Patient denies any visual hallucinations and denies any auditory hallucinations Though content/process: Unable to assess Memory and concentration:unable to assess Judgment and insight: poor STRENGTHS/WEAKNESSES: strength is that patient is [resilient]. Weakness is that patient [has poor judgment and is impulsive] INTELLECT: [average] IMPRESSIONS: schizoaffective disorder Alcohol use disorder, mild Cannabis use disorder nicotine dependance legal problems homelessness PLAN: -Patient is admitted under involuntary status to [facility] for stabilization of psychiatric symptoms and safety. Patient has not signed adult voluntary form. Will fill out and fax a second cert and fax to the court -Medications : trazodone 50mg qhs prn for sleep, Prolixin 5mg bid for psychosis, depakote 500mg bid for mood stabilization. will likely need to transition patient onto CORÉTS to ensure compliance. -Ativan and Haldol PRN for agitation/aggression -Patient was counselled on substance abuse and desired to cut back on use -Patient was informed of the risks, benefits and side effects of the medication and patient verbally consented to taking the medications -Internal Medicine consult to perform medical evaluation and physical. -NRT - nicotine patch -SW on board for discharge planning. Encourage patient to participate in groups to work on coping skills. Will await deferral and/or court hearing. 03/11/24 11:32 03/11/24 12:07
[2024-03-11] MEDS: ACETAMINOPHEN TAB 325 MG TAB PO PRN (19:03)
[2024-03-11] MEDS: IBUPROFEN 600 MG TAB PO PRN (20:14)
[2024-03-11] MEDS: DIVALPROEX ER 500 MG TAB.ER.24H PO SCH (20:14)
--- NOTE | 2024-03-12 10:07 | P.PN ---
Progress Note - Text Progress Note Date: 03/12/24 Interval History: Patient was seen in group, and was directable and agreeable to speak with lyric writer in the hallway. Patient presents much better today. He is awake and alert, and attending groups. He states that he got good sleep last night. He is getting up for meals, and being present on the unit, and interacting appropriately with peers. Gravity Meter Observer spoke with patient about transitioning him onto a CORTÉS, patient agreeable. Patient offers no complaints. At this time patient denies any suicidal or homicidal ideations, intent or plan. Patient denies any auditory, visual hallucinations and denies any paranoia or delusions. Patient denies any side effects from the medications and has been compliant with meds. MENTAL STATUS EXAM: General Appearance: Patient appears to be stated age is alert, drowsy, hard to arouse, and attempts to cooperate. Patient appears to have fair hygiene and grooming. Shaggy hair, ellington, multiple tattoos. Behavior: Patient is standing without agitated behavior, friendly Speech: Patient's speech is fluent Mood/Affect: Mood is "pretty good" Affect is congruent and constricted mildly improving Suicidality/Homicidality: Patient denies homicidal ideation and suicidal ideation Perceptions: Patient denies any visual hallucinations and denies any auditory hallucinations Though content/process: there is no evidence of delusional thought content, process is goal orientated Memory and concentration:aox4 Judgment and insight: poor, mildly improving IMPRESSIONS: schizoaffective disorder Alcohol use disorder, mild Cannabis use disorder nicotine dependance legal problems homelessness PLAN: -Patient is admitted under involuntary status to [facility] for stabilization of psychiatric symptoms and safety. Patient has not signed adult voluntary form. Will fill out and fax a second cert to the court -Medications : trazodone 50mg qhs prn for sleep, Prolixin 5mg bid for psychosis, depakote 500mg bid for mood stabilization. will likely need to transition patient onto CORTÉS to ensure compliance. -Ativan and Haldol PRN for agitation/aggression -NRT - nicotine patch -SW on board for discharge planning. Encourage patient to participate in groups to work on coping skills. Will await deferral and/or court hearing. Likely discharge toward the end of the week, after transitioning onto CORTÉS
[2024-03-12] MEDS: NICOTINE GUM (POLACRILEX) 2 MG GUM BUCCAL PRN (11:06)
[2024-03-12 14:20] LABS: Basophils % (A) 0 %; Eosinophils # (A) 0.1 k/uL (0-0.7); Eosinophils % (A) 2 %; HCT 42.1 % (39.0-53.0); HGB 13.8 gm/dL (13.0-17.5); Lymphocytes % (A) 34 %; MCH 31.1 pg (25.0-35.0); MCHC 32.7 g/dL (31.0-37.0); Mean Platelet Volume 8.4; Monocytes # (A) 0.4 k/uL (0-1.0); Monocytes % (A) 6 %; Neutrophils # (A) 3.3 k/uL (1.3-7.7); Neutrophils % (A) 55 %; Platelet Count 293 k/uL (150-450); RBC 4.43 m/uL (4.30-5.90); RDW 12.5 % (11.5-15.5)
[2024-03-12 14:26] LABS: ALT 18 U/L (4-49); AST 25 U/L (17-59); African American GFR (CKD) >90 (>60 ml/min/1.73 sqM); Albumin 4.6 g/dL (3.5-5.0); Alkaline Phosphatase 76 U/L (38-126); Anion Gap 6 mmol/L; Blood Urea Nitrogen 12 mg/dL (9-20); Calcium 9.4 mg/dL (8.4-10.2); Carbon Dioxide 26 mmol/L (22-30); Chloride 105 mmol/L (98-107); Glucose 95 mg/dL (74-99); Non-African American GFR(CKD) >90 (>60 ml/min/1.73 sqM); Potassium 4.2 mmol/L (3.5-5.1); Sodium 137 mmol/L (137-145); Total Bilirubin 0.7 mg/dL (0.2-1.3); Total Protein 6.7 g/dL (6.3-8.2)
--- NOTE | 2024-03-13 09:58 | P.PN ---
Progress Note - Text Progress Note Date: 03/13/24 Interval History: Patient was seen wandering the hallways today and was directable and agreeable to speak with creative services writer. Patient presents brighter today, he claims that he is doing fairly well overall. Not reporting any complaints at this time. States that he is sleeping a bit better at nighttime. He is seen to be interacting more with other peers around. Claims that he is going to groups. He is awake and alert, and attending groups. He states that he got good sleep last night. He is getting up for meals, and being present on the unit. Pail Bailer spoke with patient about transitioning him onto a CORTÉS, patient agreeable once again. Patient offers no complaints. At this time patient denies any suicidal or homicidal ideations, intent or plan. Patient denies any auditory, visual hallucinations and denies any paranoia or delusions. Patient denies any side effects from the medications and has been compliant with meds. MENTAL STATUS EXAM: General Appearance: Patient appears to be stated age is alert, alert, attempts to cooperate. Patient appears to have fair hygiene and grooming. Shaggy hair, ellington, multiple tattoos. Behavior: Patient is standing without agitated behavior, friendly Speech: Patient's speech is fluent Mood/Affect: Mood is "good" Affect is congruent and constricted mildly improving Suicidality/Homicidality: Patient denies homicidal ideation and suicidal ideation Perceptions: Patient denies any visual hallucinations and denies any auditory hallucinations Though content/process: there is no evidence of delusional thought content, process is goal orientated, concrete Memory and concentration:aox4 Judgment and insight: poor, mildly improving IMPRESSIONS: schizoaffective disorder Alcohol use disorder, mild Cannabis use disorder nicotine dependance legal problems PLAN: -Patient is admitted under involuntary status to [facility] for stabilization of psychiatric symptoms and safety. Patient has not signed adult voluntary form. Will fill out and fax a second cert to the court -Medications : trazodone 50mg qhs prn for sleep, Prolixin 5mg bid for psychosis, depakote 500mg bid for mood stabilization. will likely need to transition patient onto CORTÉS to ensure compliance. -Ativan and Haldol PRN for agitation/aggression -NRT - nicotine patch -SW on board for discharge planning. Encourage patient to participate in groups to work on coping skills. Will await deferral and/or court hearing. Likely discharge toward the end of the week, after transitioning onto CORTÉS
--- NOTE | 2024-03-14 12:12 | P.PN ---
Progress Note - Text Progress Note Date: 03/14/24 Interval History: Patient was seen wandering the hallways today and was directable and agreeable to speak with mortgage underwriter in the office. Patient states that he is doing pretty good today. He is seen to be interacting more with other peers on the unit. Patient is going to groups. He is awake and alert. He states that he got good sleep last night. He is getting up for meals, and being present on the unit. Child Welfare Worker spoke with patient about his discharge plan, which will be Monday, due to [facility] seferino garcia able to meet with patient until Monday, patient agreeable. Patient offers no complaints. At this time patient denies any suicidal or homicidal ideations, intent or plan. Patient denies any auditory, visual hallucinations and denies any paranoia or delusions. Patient denies any side effects from the medications and has been compliant with meds. MENTAL STATUS EXAM: General Appearance: Patient appears to be stated age is alert, alert, attempts to cooperate. Patient appears to have fair hygiene and grooming. Shaggy hair, ellington, multiple tattoos. Behavior: Patient is sitting without agitated behavior, friendly Speech: Patient's speech is fluent Mood/Affect: Mood is "pretty good" Affect is congruent and constricted mildly improving Suicidality/Homicidality: Patient denies homicidal ideation and suicidal ideation Perceptions: Patient denies any visual hallucinations and denies any auditory hallucinations Though content/process: there is no evidence of delusional thought content, process is goal orientated Memory and concentration:aox4 Judgment and insight: chronically poor, mildly improving IMPRESSIONS: schizoaffective disorder Alcohol use disorder, mild Cannabis use disorder nicotine dependance legal problems PLAN: -Patient is admitted under involuntary status to [facility] for stabilization of psychiatric symptoms and safety. Patient has not signed adult voluntary form. Will fill out and fax a second cert to the court -Medications : trazodone 50mg qhs prn for sleep, Prolixin 5mg po bid for psychosis plan to titrate off, depakote 500mg bid for mood stabilization. add Prolixin D 37.5mg today, 03/14, next dose due in [id number] on 04/04 -Ativan and Haldol PRN for agitation/aggression. -NRT - nicotine patch - on board for discharge planning. Encourage patient to participate in groups to work on coping skills. Discharge likely Monday as ACT team will be meeting with patient prior to discharge
[2024-03-14] MEDS: fluPHENAZine DECANOATE 25 MG/ML 5ML MDV IM SCH (14:28)
--- NOTE | 2024-03-15 11:20 | P.PN ---
Progress Note - Text Progress Note Date: 03/15/24 Interval History: Patient was seen wandering the hallways today and was directable and agreeable to speak with senior mortgage underwriter in the office. Patient states that he is "pretty wonderful" today. He is seen to be interacting appropriately with other peers on the unit. Patient is going to all groups. Patient is very pleasant today. He states that he slept well last night. He is getting up for meals, and being present on the unit. Felt Hooker spoke with patient about his discharge plan, which will be Monday, due to [facility] not being able to meet with patient until Monday, patient agreeable. Patient offers no complaints. At this time patient denies any suicidal or homicidal ideations, intent or plan. Patient denies any auditory, visual hallucinations and denies any paranoia or delusions. Patient denies any side effects from the medications and has been compliant with meds. MENTAL STATUS EXAM: General Appearance: Patient appears to be stated age is alert, alert, attempts to cooperate. Patient appears to have fair hygiene and grooming. Shaggy hair, ellington, multiple tattoos. Behavior: Patient is sitting without agitated behavior, friendly Speech: Patient's speech is fluent and nonpressured Mood/Affect: Mood is "pretty good" Affect is congruent and constricted improving Suicidality/Homicidality: Patient denies homicidal ideation and suicidal ideation Perceptions: Patient denies any visual hallucinations and denies any auditory hallucinations Though content/process: there is no evidence of delusional thought content, process is goal orientated Memory and concentration:aox4 Judgment and insight: chronically poor, mildly improving IMPRESSIONS: schizoaffective disorder Alcohol use disorder, mild Cannabis use disorder nicotine dependance legal problems PLAN: -Patient is admitted under involuntary status to [facility]HU for stabilization of psychiatric symptoms and safety. Patient has not signed adult voluntary form. Will fill out and fax a second cert to the court -Medications : trazodone 50mg qhs prn for sleep, decrease Prolixin 2.5mg po bid for psychosis plan to titrate off, last dose Monday evening. depakote 500mg bid for mood stabilization. Prolixin D 37.5mg, 03/14, next dose due in 3weeks on 04/04 -Ativan and Haldol PRN for agitation/aggression. -NRT - nicotine patch -SW on board for discharge planning. Encourage patient to participate in groups to work on coping skills. Discharge Monday as ACT team will be meeting with patient prior to discharge
--- NOTE | 2024-03-16 08:25 | P.PN ---
Subjective Progress Note Date: 03/16/24 Principal diagnosis: IMPRESSIONS: schizoaffective disorder Alcohol use disorder, mild Cannabis use disorder nicotine dependance legal problems Patient Name: Ziggy Luciano Date of : 88 Patient Status: Inpatient Attending Provider: Aren Lugo Date: 03/16/24 Initialization Date: 03/15/24 08:49 Interval History: Patient was seen in his room today where he was laying in bed and was directable and agreeable to speak with health technical writer . Patient states that he is "doing alright . As per the staff he is seen to be interacting appropriately with other peers on the unit. And attending all groups. Patient reports that he is planning to go home Monday and that that was the date his psychiatrist had given him due to [facility] not being able to meet with patient until Monday, Patient offers no complaints. At this time patient denies any suicidal or homicidal ideations, intent or plan. Patient denies any auditory, visual hallucinations and denies any paranoia or delusions. Patient denies any side effects from the medications and has been compliant with meds. MENTAL STATUS EXAM: General Appearance: Patient appears to be stated age is alert, alert, Shaggy hair, ellington, multiple tattoos. Behavior: Patient is sitting without agitated behavior, friendly Speech: Patient's speech is fluent and nonpressured Mood/Affect: Mood is "pretty good" Affect is congruent and constricted improving Suicidality/Homicidality: Patient denies homicidal ideation and suicidal ideation Perceptions: Patient denies any visual hallucinations and denies any auditory hallucinations Though content/process: there is no evidence of delusional thought content, process is goal orientated Memory and concentration:aox4 Judgment and insight: chronically poor, mildly improving IMPRESSIONS: schizoaffective disorder Alcohol use disorder, mild Cannabis use disorder nicotine dependance legal problems PLAN: Agree with current treatment plan -Patient is admitted under involuntary status to [facility]HU for stabilization of psychiatric symptoms and safety. Patient has not signed adult voluntary form. -Medications : trazodone 50mg qhs prn for sleep, Prolixin 2.5mg po bid for psychosis plan to titrate off, last dose Monday evening. depakote 500mg bid for mood stabilization. Prolixin D 37.5mg, 03/14, next dose due in 3weeks on 04/04 -Ativan and Haldol PRN for agitation/aggression. -NRT - nicotine patch -SW on board for discharge planning. Encourage patient to participate in groups to work on coping skills. Discharge Monday as ACT team will be meeting with patient prior to discharge Will continue monitoring and supportive care and continue treatment as planned Dorian Arrieta MD Objective - Vital Signs Vital signs: Vital Signs Temp 97.6 F 03/16/24 07:47 Pulse 75 03/16/24 07:47 Resp 16 03/16/24 07:47 BP 105/53 03/16/24 07:47 Pulse Ox 98 03/16/24 07:47 FiO2 - Labs CBC & Chem 7: 03/12/24 13:14 03/12/24 13:14
--- NOTE | 2024-03-17 08:41 | P.PN ---
Subjective Progress Note Date: 03/17/24 Principal diagnosis: IMPRESSIONS: schizoaffective disorder Alcohol use disorder, mild Cannabis use disorder nicotine dependance legal problems Patient Name: Ziggy Luciano Date of : 88 Patient Status: Inpatient Attending Provider: Aren Lugo Date: 03/17/24 Initialization Date: 03/15/24 08:49 Interval History: The patient was seen and chart was reviewed and case discussed with the nursing staff Patient was walking down the hallway and agreed to talk to this rfp writer In fact himself flagged down this rfp writer and asked about how things were going When asked about how he was doing patient states that he is doing just fine and wonderful He seemed to be slightly euphoric and expansive He denies any depression or anxiety He denies any thoughts of wanting to hurt himself or others . As per the staff he is seen to be interacting appropriately with other peers on the unit. And attending all groups. Patient reports that he is planning to go home Monday and that that was the date his psychiatrist had given him due to [facility] not being able to meet with patient until Monday, Patient offers no complaints. At this time patient denies any suicidal or homicidal ideations, intent or plan. Patient denies any auditory, visual hallucinations and denies any paranoia or delusions. Patient denies any side effects from the medications and has been compliant with meds. MENTAL STATUS EXAM: General Appearance: Patient appears to be stated age is alert, alert, Shaggy hair, ellington, multiple tattoos. Behavior: Patient is sitting without agitated behavior, friendly Speech: Patient's speech is fluent and nonpressured Mood/Affect: Mood is "pretty good" Affect is congruent and constricted impr oving Suicidality/Homicidality: Patient denies homicidal ideation and suicidal ideation Perceptions: Patient denies any visual hallucinations and denies any auditory hallucinations Though content/process: there is no evidence of delusional thought content, process is goal orientated Memory and concentration:aox4 Judgment and insight: chronically poor, mildly improving IMPRESSIONS: schizoaffective disorder Alcohol use disorder, mild Cannabis use disorder nicotine dependance legal problems PLAN: Agree with current treatment plan -Patient is admitted under involuntary status to MHU for stabilization of psychiatric symptoms and safety. Patient has not signed adult voluntary form. -Medications : trazodone 50mg qhs prn for sleep, Prolixin 2.5mg po bid for psychosis plan to titrate off, last dose Monday evening. depakote 500mg bid for mood stabilization. Prolixin D 37.5mg, 03/14, next dose due in 3weeks on 04/04 -Ativan and Haldol PRN for agitation/aggression. -NRT - nicotine patch - on board for discharge planning. Encourage patient to participate in groups to work on coping skills. Discharge Monday as ACT team will be meeting with patient prior to discharge Will continue monitoring and supportive care and continue treatment as planned Dorian Arrieta MD Objective - Vital Signs Vital signs: Vital Signs Temp 98.0 F 03/17/24 06:50 Pulse 64 03/17/24 06:50 Resp 16 03/17/24 06:50 BP 108/59 03/17/24 06:50 Pulse Ox 98 03/17/24 06:50 FiO2 - Labs CBC & Chem 7: 03/12/24 13:14 03/12/24 13:14
[2024-03-18 05:42] VITALS: BP 111/78; PULSE 73; RESP 18; TEMP 98.1
--- NOTE | 2024-03-18 11:11 | P.DS ---
Providers Date of admission: 03/11/24 00:29 Expected date of discharge: 03/18/24 Attending physician: Aren Lugo MD Consults: 03/11/24 00:33 Consult Physician Routine Consulting Provider: Santa Magaña Consult Reason/Comments: H&P for mental health admission Do you want consulting provider notified?: Yes, Notify in am Primary care physician: Santa Magaña MD - Discharge Diagnosis(es) (1) Schizoaffective disorder, bipolar type Current Visit: No Status: Chronic Priority: High (2) Nicotine use disorder Current Visit: Yes Status: Acute Priority: Low (3) Legal problem Current Visit: Yes Status: Acute Priority: Medium (4) Cannabis use disorder, severe, dependence Current Visit: No Status: Acute Priority: Medium (5) Alcohol use disorder, mild, abuse Current Visit: No Status: Chronic Priority: Medium Hospital Course: Admission HPI: Admission note was completed by poem writer "Patient presented to the hospital on 03/10. As per EPS, "Patient lying in bed calm and cooperative at present intially came into triage rambling and making nonsensical statements. Recently out of care home 3-4 days ago. Informs this poem writer that he his sleep has been erratic and he is supposed to start a job on Monday but doesn't know if he can. Admits to anger issues with but cannot explain why. Talks about being an old soul and riding on his bike. Disorganized thoughts. States is leg twitch is an coordinates with his anxiety. Unable to explain specific events that lead to EC visit. Repeated things not right at home. Spoke with who petitioned patient and informed this poem writer that patient has slept since he got home. Walks around the house rambling, piling things up in several spots, mixing his food together and then not eating. also reports verbal aggression and belligerence. No medications taken since patient returned from care home." Patient denies any suicidal or homicidal ideations intent or plan. At this time patient denies any auditory or visual hallucinations. Patient denies any flight of ideas racing thoughts and increased in goal directed behavior. Patient admits to using marijuana, alcohol on occasion, and chewing tobacco. Today, patient was sleeping heavily in bed, and was difficult to awaken. He muttered a few answers when prompted several times. received prn meds earlier and has been seen responding to internal stimuli in the hallways." Hospital course: Upon admission to the unit patient was admitted involuntarily on a petition and certificate and a second certificate was completed and faxed with the courts. Patient ended up signing a deferral with the attorney lawyer and agreeing to treatment. Patient got along well with other patients on the unit and followed unit protocol. Patient was compliant with the medications and denied any side effects throughout hospital course. Patient was started on Prolixin p.o 5 mg twice daily for psychosis, patient was agreeable to be transitioned onto Prolixin D given 37.5 mg IM on 03/14, next dose will be due in 3 weeks on 04/04. Depakote 500 mg twice daily for mood stabilization, trazodone as needed for sleep.. Patient spoke of his stressors and engaged in therapy both group and individual. Patient was also seen by medical team for history and physical exam. Throughout the course of the hospitalization patient gradually improved with regards to mood, anxiety, psychosis, sleep and returned back to their baseline level of functioning. On the day of discharge patient denied any suicidal or homicidal ideations intent or plan denied any auditory or visual hallucinations. Patient endorsed wanting to live for his health and family. The patient denied any access to guns or weapons. Patient denied any paranoia and did not endorse any delusions. Patient does have a significant history of substance abuse and was counseled on abstaining from all substances including alcohol and marijuana. Patient elected to do outpatient substance use treatment program through [facility]. Patient was also counseled on the medications and need for regular compliance and was encouraged to follow-up with their outpatient appoin tme for mental health and also for primary care. Prior to discharge a family meeting will be arranged by social insurance adviser to answer any questions and ensure safety upon discharge. Mental status exam: General Appearance: Patient appears to be short hair, stated age is alert, pleasant, and cooperative. Patient is in no acute distress and has improved hygiene and grooming Behavior: Patient is calmly seated without any agitated behavior. Speech: Patient's speech is fluent and nonpressured. Mood/Affect: Patient reports their mood is "good", affect is congruent Suicidality/Homicidality: Patient denies having any suicidal or homicidal ideation intent or plan. Perceptions: Patient denies any auditory or visual hallucinations. Though content/process: There is no evidence of any delusional thought content and thought process is linear and goal-directed. Memory and concentration: AOX3, grossly intact for the purposes of this session. Can spell "WORLD" backwards correctly. Judgment and insight: Chronically poor, however has improved with guarded prognosis Impression: schizoaffective disorder Alcohol use disorder, mild Cannabis use disorder nicotine dependance legal problems Plan: -Continue with discharge today as patient has improved and stabilized psychiatrically and is not currently an imminent threat to himself and/or others. Patient will remain at chronically elevated risk for harm to self and/or others due to his impulsivity and substance abuse. -Continue medications: Trazodone nightly as needed for sleep, Prolixin p.o. was discontinued, patient was given Prolixin D IM 37.5 mg on 03/14, next dose will be due in 3 weeks on 04/04. Depakote 500 mg twice daily for mood stabilization. -Patient was counseled on the need for medication compliance and appropriate follow-up at mental health and also primary care for medical issues. Patient verbalized understanding and agreed. -Social work to arrange for and conduct family meeting to ensure safety upon discharge and answer any questions/concerns. Social work also to arrange for patients follow up appointments with [facility] for psychiatric care along with follow up with primary care provider. -Patient counseled on abstaining from recreational drugs and marijuana and alcohol. Was informed/educated on the adverse effects on their physical and mental health. Patient verbally agreed and understood. Patient was offered [facility] bstance abuse treatment however declined at this time. -Patient was instructed to return to the hospital or seek immediate medical care if their psychiatric or medical symptoms do worsen or reoccur. Allergies Allergy/AdvReac Type Severity Reaction Status Date / Time No Known Allergies Allergy Verified 03/10/24 19:25 Laboratory Results WBC 6.0 k/uL (3.8-10.6) 03/12/24 13:14 RBC 4.43 m/uL (4.30-5.90) 03/12/24 13:14 Hgb 13.8 gm/dL (13.0-17.5) 03/12/24 13:14 Hct 42.1 % (39.0-53.0) 03/12/24 13:14 MCV 95.0 fL (80.0-100.0) 03/12/24 13:14 MCH 31.1 pg (25.0-35.0) 03/12/24 13:14 MCHC 32.7 g/dL (31.0-37.0) 03/12/24 13:14 RDW 12.5 % (11.5-15.5) 03/12/24 13:14 Plt Count 293 k/uL (150-450) 03/12/24 13:14 MPV 8.4 03/12/24 13:14 Neutrophils % 55 % 03/12/24 13:14 Lymphocytes % 34 % 03/12/24 13:14 Monocytes % 6 % 03/12/24 13:14 Eosinophils % 2 % 03/12/24 13:14 Basophils % 0 % 03/12/24 13:14 Neutrophils # 3.3 k/uL (1.3-7.7) 03/12/24 13:14 Lymphocytes # 2.0 k/uL (1.0-4.8) 03/12/24 13:14 Monocytes # 0.4 k/uL (0-1.0) 03/12/24 13:14 Eosinophils # 0.1 k/uL (0-0.7) 03/12/24 13:14 Basophils # 0.0 k/uL (0-0.2) 03/12/24 13:14 Sodium 137 mmol/L (137-145) 03/12/24 13:14 Potassium 4.2 mmol/L (3.5-5.1) 03/12/24 13:14 Chloride 105 mmol/L (98-107) 03/12/24 13:14 Carbon Dioxide 26 mmol/L (22-30) 03/12/24 13:14 Anion Gap 6 mmol/L 03/12/24 13:14 BUN 12 mg/dL (9-20) 03/12/24 13:14 Creatinine 0.77 mg/dL (0.66-1.25) 03/12/24 13:14 Est GFR (CKD-EPI)AfAm >90 (>60 ml/min/1.73 sqM) 03/12/24 13:14 Est GFR (CKD-EPI)NonAf >90 (>60 ml/min/1.73 sqM) 03/12/24 13:14 Glucose 95 mg/dL (74-99) 03/12/24 13:14 Calcium 9.4 mg/dL (8.4-10.2) 03/12/24 13:14 Total Bilirubin 0.7 mg/dL (0.2-1.3) 03/12/24 13:14 AST 25 U/L (17-59) 03/12/24 13:14 ALT 18 U/L (4-49) 03/12/24 13:14 Alkaline Phosphatase 76 U/L (38-126) 03/12/24 13:14 Total Protein 6.7 g/dL (6.3-8.2) 03/12/24 13:14 Albumin 4.6 g/dL (3.5-5.0) 03/12/24 13:14 Urine Color Light Yellow 03/11/24 00:00 Urine Appearance Clear (Clear) 03/11/24 00:00 Urine pH 6.0 (5.0-8.0) 03/11/24 00:00 Ur Specific [place] 1.018 (1.001-1.035) 03/11/24 00:00 Urine Protein Negative (Negative) 03/11/24 00:00 Urine Glucose (UA) Negative (Negative) 03/11/24 00:00 Urine Ketones Negative (Negative) 03/11/24 00:00 Urine Blood Negative (Negative) 03/11/24 00:00 Urine Nitrite Negative (Negative) 03/11/24 00:00 Urine Bilirubin Negative (Negative) 03/11/24 00:00 Urine Urobilinogen <2.0 mg/dL (<2.0) 03/11/24 00:00 Ur Leukocyte Esterase Negative (Negative) 03/11/24 00:00 Urine Opiates Screen Not Detected (NotDetected) 03/10/24 20:01 Ur Oxycodone Screen Not Detected (NotDetected) 03/10/24 20:01 Urine Methadone Screen Not Detected (NotDetected) 03/10/24 20:01 Ur Barbiturates Screen Not Detected (NotDetected) 03/10/24 20:01 U Tricyclic Antidepress Not Detected (NotDetected) 03/10/24 20:01 Ur Phencyclidine Scrn Not Detected (NotDetected) 03/10/24 20:01 Ur Amphetamines Screen Not Detected (NotDetected) 03/10/24 20:01 U Methamphetamines Scrn Not Detected (NotDetected) 03/10/24 20:01 U Benzodiazepines Scrn Not Detected (NotDetected) 03/10/24 20:01 Urine Cocaine Screen Not Detected (NotDetected) 03/10/24 20:01 U Marijuana (THC) Screen Detected (NotDetected) H 03/10/24 20:01 SARS-CoV-2 (PCR) Not Detected (Not Detectd) 03/10/24 23:10 Vital Signs Temp 98.1 F 03/18/24 05:41 Pulse 73 03/18/24 05:41 Resp 18 03/18/24 05:41 BP 111/78 03/18/24 05:41 Pulse Ox 100 03/18/24 05:41 FiO2 Intake & Output 03/17/24 03/18/24 03/18/24 18:59 06:59 18:59 Weight 85.2 kg Patient Condition at Discharge: Stable Plan - Discharge Summary Discharge Rx Participant: Yes New Discharge Prescriptions: New Divalproex ER [Depakote ER] 500 mg PO BID 30 Days #60 tab Nicotine 14Mg/24Hr Patch [Habitrol] 1 patch TRANSDERM DAILY 14 Days #14 patch Nicotine Gum (Polacrilex) [Nicorette] 2 mg BUCCAL Q4HR PRN pieceofgum PRN Reason: Nicotine Cravings traZODone HCL 150 mg PO HS PRN 30 Days #30 tablet PRN Reason: Insomnia fluPHENAZine decanoate [Prolixin Decanoate] 37.5 mg IM QMONTHLY #1 each Discontinued Divalproex ER [Depakote ER] 500 mg PO BID #60 tab Nicotine 14Mg/24Hr Patch [Habitrol] 1 patch TRANSDERM DAILY #14 patch fluPHENAZine [Prolixin] 5 mg PO BID #60 tab traZODone HCL [Desyrel] 50 mg PO HS PRN #30 tab PRN Reason: Insomnia Discharge Medication List Divalproex ER [Depakote ER] 500 mg PO BID 30 Days #60 tab 03/18/24 [Rx] Nicotine 14Mg/24Hr Patch [Habitrol] 1 patch TRANSDERM DAILY 14 Days #14 patch 03/18/24 [Rx] Nicotine Gum (Polacrilex) [Nicorette] 2 mg BUCCAL Q4HR PRN pieceofgum 03/18/24 [Rx] fluPHENAZine decanoate [Prolixin Decanoate] 37.5 mg IM QMONTHLY #1 each 03/18/24 [Rx] traZODone HCL 150 mg PO HS PRN 30 Days #30 tablet 03/18/24 [Rx] Follow up Appointment(s)/Referral(s): Santa Magaña MD [Primary Care Provider] - 1 Week Patient Instructions/Handouts: How to Stop Smoking (DC), Schizoaffective Disorder (DC), Abuse of Alcohol (ED), Cannabis Abuse (DC) Activity/Diet/Wound Care/Special Instructions: Avoid the use of street drugs and alcohol. Take all medications as prescribed. When you are in need of refills on your medications, please contact your medical provider and/or outpatient psychiatrist/provider to have this done. Please go to your scheduled outpatient appointment for aftercare treatment. If symptoms return or become worse, call the crisis line at and/or go to the nearest emergency room for evaluation. National Suicide Hotline 988 Discharge Disposition: HOME SELF-CARE
== END 2024-03-18 12:46 | disposition home or self-care (01) | DRG 750 ==
LOC: EC 17:47 → 3MHU 03-11 00:29
PROVIDERS: ADMIT Psychiatry & Neurology Psychiatry; ATTEND Psychiatry & Neurology Psychiatry
DX: F25.0 Schizoaffective disorder, bipolar type (principal); F12.20 Cannabis dependence, uncomplicated; F10.10 Alcohol abuse, uncomplicated; F41.9 Anxiety disorder, unspecified; F32.A Depression, unspecified; F17.220 Nicotine dependence, chewing tobacco, uncomplicated; Z11.52 Encounter for screening for COVID-19; Z79.899 Other long term (current) drug therapy; Z81.8 Family history of other mental and behavioral disorders; Z65.3 Problems related to other legal circumstances; Z63.5 Disruption of family by separation and divorce; Z56.0 Unemployment, unspecified; Z71.41 Alcohol abuse counseling and surveillance of alcoholic; Z71.51 Drug abuse counseling and surveillance of drug abuser
CPT/HCPCS: 80053; 80306; 81003; 82075; 85025; 87635; 99285

== ENCOUNTER 2024-03-26 08:30 | Inpatient (IN) | payer MEDICAID, OTHER ==
[2024-03-26 09:43] LABS: Amphetamine Screen,Urine Not Detected (NotDetected); Barbiturate Screen,Urine Not Detected (NotDetected); Benzodiazepines Screen,Urine Not Detected (NotDetected); Cocaine Screen,Urine Not Detected (NotDetected); Methadone Screen, Urine Not Detected (NotDetected); Opiate Screen,Urine Not Detected (NotDetected); Oxycodone Screen, Urine Not Detected (NotDetected); Phencyclidine Screen,Urine Not Detected (NotDetected); Tricyclic Antidepressant,Urine Not Detected (NotDetected); Urn Cannabinoid Scrn Detected (NotDetected)
--- NOTE | 2024-03-26 11:02 | ED ---
Psych HPI - General Chief Complaint: Psychiatric Symptoms Stated Complaint: mental health,petition Time Seen by Provider: 03/26/24 08:42 Source: patient, family, RN notes reviewed Mode of arrival: ambulatory Limitations: no limitations - History of Present Illness Initial Comments: 34-year-old male presents emergency department with and police for p sychiatric evaluation. Patient has a history of schizoaffective bipolar disorder in which he had an appointment on Monday had his Depakote switched to once a day. Patient states that he is not suicidal but he is very anxious at times. states that he is psychotic, manic. Patient denies any chest pain shortness of no physical complaints denies any drug use other than marijuana - Related Data Home Medications Medication Instructions Recorded Confirmed Divalproex ER [Depakote ER] 1,000 mg PO HS 03/26/24 03/26/24 Previous Rx's Medication Instructions Recorded Nicotine 14Mg/24Hr Patch [Habitrol] 1 patch TRANSDERM DAILY 14 Days 03/18/24 #14 patch Nicotine Gum (Polacrilex) 2 mg BUCCAL Q4HR PRN pieceofgum 03/18/24 [Nicorette] fluPHENAZine decanoate [Prolixin 37.5 mg IM Q21D #1 each 03/18/24 Decanoate] traZODone HCL 150 mg PO HS PRN 30 Days #30 tablet 03/18/24 Allergies Allergy/AdvReac Type Severity Reaction Status Date / Time No Known Allergies Allergy Verified 03/26/24 10:20 Review of Systems ROS Statement: Those systems with pertinent positive or pertinent negative responses have been documented in the HPI. ROS Other: All systems not noted in ROS Statement are negative. Past Medical History Past Medical History: No Reported History Additional Past Medical History / Comment(s): possible genital warts History of Any Multi-Drug Resistant Organisms: None Reported Past Surgical History: Hernia Repair Additional Past Surgical History / Comment(s): inguinal hernia Left and Right Past Psychological History: Anxiety, Bipolar, Depression, Schizoaffective Disorder Smoking Status: Former smoker Past Alcohol Use History: None Reported Past Drug Use History: Marijuana General Exam Limitations: no limitations General appearance: alert, in no apparent distress Head exam: Present: atraumatic, normocephalic, normal inspection Neck exam: Present: normal inspection. Absent: tenderness, meningismus, lymphadenopathy Respiratory exam: Present: normal lung sounds bilaterally. Absent: respiratory distress, wheezes, rales, rhonchi, stridor Cardiovascular Exam: Present: regular rate, normal rhythm, normal heart sounds. Absent: systolic murmur, diastolic murmur, rubs, gallop, clicks GI/Abdominal exam: Present: soft, normal bowel sounds. Absent: distended, tenderness, guarding, rebound, rigid Neurological exam: Present: alert, oriented X3 Psychiatric exam: Present: normal affect, normal mood Skin exam: Present: warm, dry, intact, normal color. Absent: rash Course Vital Signs 03/26/24 03/26/24 03/26/24 08:38 09:11 13:33 Temperature 97.9 F 97.5 F L Pulse Rate 80 85 66 Respiratory 18 16 17 Rate Blood Pressure 129/60 140/80 120/68 O2 Sat by Pulse 98 98 98 Oximetry 03/26/24 15:46 Temperature 97.4 F L Pulse Rate 61 Respiratory 16 Rate Blood Pressure 118/82 O2 Sat by Pulse 100 Oximetry Medical Decision Making - Medical Decision Making Was pt. sent in by a medical professional or institution (, PA, WASHER OPERATOR, urgent care, hospital, or senior living...) When possible be specific @ -No Did you speak to anyone other than the patient for history (EMS, parent, family, police, friend...)? What history was obtained from this source @ -No Did you review nursing and triage notes (agree or disagree)? Why? @ -I reviewed and agree with nursing and triage notes Were old charts reviewed (outside hosp., previous admission, EMS record, old EKG, old radiological studies, urgent care reports/EKG's, senior living records)? Report findings @ -No old charts were reviewed Differential Diagnosis (chest pain, altered mental status, abdominal pain women, abdominal pain men, vaginal bleeding, weakness, fever, dyspnea, syncope, headache, dizziness, GI bleed, back pain, seizure, CVA, palpatations, mental health, musculoskeletal)? @ -Differential Mental Health Depression, anxiety, bipolar, psychosis, schizophrenia, borderline personality, situational depression, adjustment disorder, behavioral disorder, brain tumor, malingering, substance abuse, encephalopathy, medication reaction, dementia, hypothyroidism, degenerative neurologic disorder, lupus.... This is not meant to be all-inclusive list EKG interpreted by me (3pts min.). @ -None X-rays interpreted by me (1pt min.). @ -None done CT interpreted by me (1pt min.). @ -None done U/S interpreted by me (1pt. min.). @ -None done What testing was considered but not performed or refused? (CT, X-rays, U/S, labs)? Why? @ -None What meds were considered but not given or refused? Why? @ -None Did you discuss the management of the patient with other professionals (professionals i.e. , PA, WASHER OPERATOR, lab, RT, psych nurse, director social service, tree worker, teacher, physics technical officer, case preparer and liner)? Give summary @ -Patient evaluated by EPS and recommend inpatient psychiatric treatment Was smoking cessation discussed for >3mins.? @ -No Was critical care preformed (if so, how long)? @ -No Were there social determinants of health that impacted care today? How? (Homelessness, low income, unemployed, alcoholism, drug addiction, transportation, low edu. Level, literacy, decrease access to med. care, intermediate, rehab)? @ -No Was there de-escalation of care discussed even if they declined (Discuss DNR or withdrawal of care, Hospice)? DNR status @ -No What co-morbidities impacted this encounter? (DM, HTN, Smoking, COPD, CAD, Cancer, CVA, ARF, Chemo, Hep., AIDS, mental health diagnosis, sleep apnea, morbid obesity)? @ -None Was patient admitted / discharged? Hospital course, mention meds given and route, prescriptions, significant lab abnormalities, going to OR and other pertinent info. @ -Admitted to [facility] for psychiatric treatment Undiagnosed new problem with uncertain prognosis? @ -No Drug Therapy requiring intensive monitoring for toxicity (Heparin, Nitro, Insulin, Cardizem)? @ -No Were any procedures done? @ -No Diagnosis/symptom? @ -Acute psychosis, bipolar schizoaffective Acute, or Chronic, or Acute on Chronic? @ -Acute Uncomplicated (without systemic symptoms) or Complicated (systemic symptoms)? @ -Complicated Side effects of treatment? @ -No Exacerbation, Progression, or Severe Exacerbation? @ -No Poses a threat to life or bodily function? How? (Chest pain, USA, NM, pneumonia, PE, COPD, DKA, ARF, appy, cholecystitis, CVA, Diverticulitis, Homicidal, Suicidal, threat to staff... and all critical care pts) @ -No - Lab Data Lab Results 03/26/24 Range/Units 08:59 Urine Opiates Screen Not Detected (NotDetected) Ur Oxycodone Screen Not Detected (NotDetected) Urine Methadone Screen Not Detected (NotDetected) Ur Barbiturates Screen Not Detected (NotDetected) U Tricyclic Antidepress Not Detected (NotDetected) Ur Phencyclidine Scrn Not Detected (NotDetected) Ur Amphetamines Screen Not Detected (NotDetected) U Methamphetamines Scrn Not Detected (NotDetected) U Benzodiazepines Scrn Not Detected (NotDetected) Urine Cocaine Screen Not Detected (NotDetected) U Marijuana (THC) Screen Detected H (NotDetected) Disposition Clinical Impression: Acute psychosis Disposition: TRANSFER TO PSYCH HOSP/UNIT Referrals: Lucy Magaña DO [Primary Care Provider] - 1-2 days Time of Disposition: 15:54
[2024-03-26] MEDS ORDERED: MAGNESIUM HYDROXIDE 2,400 MG/30 ML CUP PO PRN (17:09)
[2024-03-26] MEDS ORDERED: LORazepam 2 MG/ML INJ IM PRN (17:15)
[2024-03-26] MEDS ORDERED: traZODone HCL 50 MG TAB PO PRN (17:16)
[2024-03-26] MEDS ORDERED: HALOPERIDOL LACTATE 5 MG/ML 1 ML VIAL IM PRN (17:16)
[2024-03-26] MEDS: HALOPERIDOL LACTATE 5 MG/ML 1 ML VIAL IM STA (17:18)
[2024-03-26] MEDS: MAG HYDROX/AL HYDROX/SIMETH 355 ML BOTTLE PO PRN (20:59)
[2024-03-26] MEDS: DIVALPROEX ER 500 MG TAB.ER.24H PO SCH (21:00)
--- NOTE | 2024-03-27 03:11 | P.CONS ---
History of Present Illness - Reason for Consult Consult date: 03/27/24 - History of Present Illness The patient is a 34-year-old male with a PMH of tobacco abuse and schizoaffective bipolar disorder who was brought into the emergency room after his called the police as he was not acting appropriately. The patient was admitted to the mental health unit where he was seen and evaluated. He reports recreational marijuana use and chewing tobacco but denied any alcohol use or any additional substance use. He also had no active complaints at the time of interview. Denied experiencing chest discomfort, shortness of breath, fever, chills, cough, nausea, vomiting, abdominal pain, diarrhea Review of systems: Pertinent positives and negatives as discussed in HPI, a complete review of systems was performed and all other systems are negative. Physical examination: General: non toxic, no distress, appears at stated age, obese Derm: no unusual rashes/lesions, no unusual ecchymoses, warm, dry Head: atraumatic, normocephalic, symmetric Eyes: EOMI, no lid lag, anicteric sclera ENT: Nose and ears atraumatic, no thrush, no pharyngeal erythema Neck: trachea midline, supple Mouth: no lip lesion, mucus membranes moist Cardiovascular: S1S2 reg, no murmur, no edema Lungs: CTA bilateral, no rhonchi, no rales , no accessory muscle use Abdominal: soft, nontender to palpation, no guarding Ext: no gross muscle atrophy, no contractures, Neuro: No gross focal neuro deficits noted Psych: Alert, oriented, appropriate affect Assessment: Marijuana abuse Schizoaffective bipolar disorder Plan: Advised on the importance of cessation of substance use Defer management of schizoaffective disorder to primary psychiatry service Thank you for allowing us to participate in the care of this patient. We will follow peripherally. Do not hesitate to contact us with questions. Someone can be reached from the [facility] hospitalist group at all hours of the day at [phone]. Past Medical History Past Medical History: No Reported History Additional Past Medical History / Comment(s): possible genital warts History of Any Multi-Drug Resistant Organisms: None Reported Past Surgical History: Hernia Repair Additional Past Surgical History / Comment(s): inguinal hernia Left and Right Past Psychological History: Anxiety, Bipolar, Depression, Schizoaffective Disorder Smoking Status: Former smoker Past Alcohol Use History: None Reported Past Drug Use History: Marijuana Medications and Allergies Home Medications Medication Instructions Recorded Confirmed Type Nicotine 14Mg/24Hr Patch [Habitrol] 1 patch TRANSDERM DAILY 14 Days 03/18/24 03/26/24 Rx #14 patch Nicotine Gum (Polacrilex) 2 mg BUCCAL Q4HR PRN pieceofgum 03/18/24 03/26/24 Rx [Nicorette] fluPHENAZine decanoate [Prolixin 37.5 mg IM Q21D #1 each 03/18/24 03/26/24 Rx Decanoate] traZODone HCL 150 mg PO HS PRN 30 Days #30 tablet 03/18/24 03/26/24 Rx Divalproex ER [Depakote ER] 1,000 mg PO HS 03/26/24 03/26/24 History Allergies Allergy/AdvReac Type Severity Reaction Status Date / Time No Known Allergies Allergy Verified 03/26/24 19:14 Physical Exam Vitals: Vital Signs Temp Pulse Pulse Resp BP BP Pulse Ox 03/26/24 17:30 97.7 F 65 18 130/81 98 03/26/24 17:22 97.5 F L 67 16 99/65 100 03/26/24 15:46 97.4 F L 61 16 118/82 100 03/26/24 13:33 97.5 F L 66 17 120/68 98 03/26/24 09:11 85 16 140/80 98 03/26/24 08:38 97.9 F 80 18 129/60 98 Intake and Output 03/26/24 03/26/24 03/27/24 14:59 22:59 06:59 Other: Weight 90.718 kg 86.863 kg Results Labs: Abnormal Lab Results - Last 24 Hours (Table) 03/26/24 Range/Units 08:59 U Marijuana (THC) Screen Detected H (NotDetected)
[2024-03-27] MEDS: NICOTINE GUM (POLACRILEX) 2 MG GUM BUCCAL PRN (04:33)
[2024-03-27] MEDS: NICOTINE 14MG/24HR PATCH TRANSDERM SCH (08:06)
[2024-03-27 08:56] LABS: Basophils % (A) 0 %; Eosinophils # (A) 0.3 k/uL (0-0.7); Eosinophils % (A) 4 %; HCT 44.8 % (39.0-53.0); HGB 14.1 gm/dL (13.0-17.5); Lymphocytes # (A) 2.1 k/uL (1.0-4.8); Lymphocytes % (A) 35 %; MCH 31.1 pg (25.0-35.0); MCHC 31.4 g/dL (31.0-37.0); Mean Platelet Volume 8.3; Monocytes # (A) 0.5 k/uL (0-1.0); Monocytes % (A) 8 %; Neutrophils % (A) 49 %; Platelet Count 261 k/uL (150-450); RBC 4.52 m/uL (4.30-5.90); RDW 12.4 % (11.5-15.5)
[2024-03-27 09:45] LABS: ALT 21 U/L (4-49); AST 22 U/L (17-59); African American GFR (CKD) >90 (>60 ml/min/1.73 sqM); Albumin 4.2 g/dL (3.5-5.0); Alkaline Phosphatase 66 U/L (38-126); Anion Gap 8 mmol/L; Blood Urea Nitrogen 12 mg/dL (9-20); Calcium 9.6 mg/dL (8.4-10.2); Carbon Dioxide 27 mmol/L (22-30); Chloride 107 mmol/L (98-107); Glucose 99 mg/dL (74-99); Non-African American GFR(CKD) >90 (>60 ml/min/1.73 sqM); Potassium 4.7 mmol/L (3.5-5.1); Sodium 142 mmol/L (137-145); Total Bilirubin 0.4 mg/dL (0.2-1.3); Total Protein 6.3 g/dL (6.3-8.2)
--- NOTE | 2024-03-27 13:29 | P.HP ---
Psychiatric H&P - . H&P Date: 03/27/24 History & Physical: Allergies Allergy/AdvReac Type Severity Reaction Status Date / Time No Known Allergies Allergy Verified 03/26/24 19:14 Vital Signs Temp 98.1 F 03/27/24 06:16 Pulse 72 03/27/24 06:16 Resp 16 03/27/24 06:16 BP 110/58 03/27/24 06:16 Pulse Ox 99 03/27/24 06:16 FiO2 Intake & Output 03/26/24 03/27/24 03/27/24 18:59 06:59 18:59 Weight 86.863 kg 86.863 kg Laboratory Last Values Urine Opiates Screen Not Detected (NotDetected) 03/26/24 08:59 Ur Oxycodone Screen Not Detected (NotDetected) 03/26/24 08:59 Urine Methadone Screen Not Detected (NotDetected) 03/26/24 08:59 Ur Barbiturates Screen Not Detected (NotDetected) 03/26/24 08:59 U Tricyclic Antidepress Not Detected (NotDetected) 03/26/24 08:59 Ur Phencyclidine Scrn Not Detected (NotDetected) 03/26/24 08:59 Ur Amphetamines Screen Not Detected (NotDetected) 03/26/24 08:59 U Methamphetamines Scrn Not Detected (NotDetected) 03/26/24 08:59 U Benzodiazepines Scrn Not Detected (NotDetected) 03/26/24 08:59 Urine Cocaine Screen Not Detected (NotDetected) 03/26/24 08:59 U Marijuana (THC) Screen Detected (NotDetected) H 03/26/24 08:59 Influenza Type A (PCR) Not Detected (Not Detectd) 03/26/24 15:54 Influenza Type B (PCR) Not Detected (Not Detectd) 03/26/24 15:54 RSV (PCR) Not Detected (Not Detectd) 03/26/24 15:54 SARS-CoV-2 (PCR) Not Detected (Not Detectd) 03/26/24 15:54 03/27/24 08:52 IDENTIFYING DATA: Patient is a 33-year-old male. . Unemployed. No children. homeless HPI: Patient presented to the hospital on 03/26. As per EPS note, "Cl sitting in bed A/O x4 brought in via due to bizzare behavior, abrasive with others, disorganized thinking, and confusion. Cl presents with tangential thoughts unrelated to their mental health. Cl was redirected a few times. Cl reported to have not slept in two days, with increased bizarre behavior in the home. Cl's reports having guests visit and Ziggy was " in their faces about things, and attempted to give a 10 yr old ibuprophen at 300 am for no reason, agressive toward an . Cl frequently talking over when she is trying to explain what is going on. Cl denying all things being reported. Cl repeatedly stating " its all childhood trama". Cl asked about substances that have been used recently. Cl only reported THC use. Clinician asked cl if they were using any type of psychodelic edibles, based on Cl's behavior. Cl refused to answer question directly only stating repeatedly " I plead the 5th, I plead the 5th." Cl continued to provide vague statements. Cl is labile, appearing confused and disorganized. Nursing staff reports cl was,yelling at times,pacing, speaking erratically, stating random answers that don't make sense. Judgement/insight/impulse control poor. ADLS:poor sleep/thomas:poor. Cl unsure of when they last ate. " Today, the patient claims that there is alot of stuff going on at home, and there are things going on in his head. No chaos, no voices, no thoughts of hurting himself or others. Just "things" Patient is very vague during the interview. Patient becomes bizarre during the interview, closing his eyes and making bizarre hand gestures. Denies SI/HI Patient admits to using marijuana. [facility] explained to the patient that the marijuana could be causing hospital visits, the patient states that he is taking a stand against marijuana, and for THC, and he is not willing to give it up. Because it is for his and family, and his own well being. PAST PSYCHIATRIC HISTORY: Patient was last on our unit March 11 2024. Patient states that he has been previously diagnosed bipolar disorder. As per chart review, the patient has previously been prescribed Risperdal, Risperdal Consta, and Lamictal. currently on Prolixin D every 3 weeks. Last dose given 03/14/24 Next dose due 04/04/24. He states he has had a few attempts at suicide. PMH:As per ER note ALLERGIES: as per EMR CHEMICAL DEPENDENCY HISTORY: as per HPI FAMILY PSYCHIATRIC/SUBSTANCE USE HISTORY: The patient reports that his mother was admitted onto psychiatric unit has schizophrenia, and his brother has ADHD. SOCIAL HISTORY: Patient was born and raised in [place]. He is since May 2021. He is currently unemployed. He was studying liberal arts but was one semester short of graduation. He denies any significant history of physical or sexual abuse. His parents when he was 15 or 16 years old. He reports that he was raised [employer] but is currently nonpracticing. He reports that he has been incarcerated for multiple charges including felonious assault and retail fraud in the past. Patient recently incarcerated for domestic v iolence, and violation of a PPO MENTAL STATUS EXAM: General Appearance: Patient appears to be stated age is alert, alert, attempts to cooperate. Patient appears to have fair hygiene and grooming. Shaved hair, ellington, multiple tattoos. Behavior: Patient is sitting without agitated behavior, friendly, bizarre, fixated on using marijuana Speech: Patient's speech is fluent and nonpressured. Mood/Affect: Mood is "pretty good" Affect is congruent and constricted bizarre Suicidality/Homicidality: Patient denies homicidal ideation and suicidal ideation Perceptions: Patient denies any visual hallucinations and denies any auditory hallucinations Though content/process: there is no evidence of delusional thought content, process is disorganized Memory and concentration:aox4 Judgment and insight: chronically poor STRENGTHS/WEAKNESSES: strength is that patient is [resilient]. Weakness is that patient [has poor judgment and is impulsive] INTELLECT: [average] IMPRESSIONS: schizoaffective disorder Alcohol use disorder, mild Cannabis use disorder nicotine dependance legal problems homelessness PLAN: -Patient is admitted under voluntary status to [facility] for stabilization of psychiatric symptoms and safety. Patient is currently on a deferral that he signed on his last admission. -Medications : Patient currently on Prolixin D, last dose given 03/14/24, increase to [id number], next dose due 03/28/24. Depakote ER 1000mg qhs for mood/agression, increase trazodone 200mg qhs for sleep. -Ativan and Haldol PRN for agitation/aggression -Patient was extensively counselled on substance abuse and encouraged to discontinue use -Patient was informed of the risks, benefits and side effects of the medication and patient verbally consented to taking the medications -Internal Medicine consult to perform medical evaluation and physical. -NRT - nicotine patch -SW on board for discharge planning. Encourage patient to participate in groups to work on coping skills. Patient is currently on a deferral from his last admission, earlier this month.
[2024-03-27 14:39] LABS: Valproic Acid (Depakene) 56.4 ug/mL
[2024-03-27] MEDS: traZODone HCL 100 MG TAB PO SCH (21:40)
[2024-03-28] MEDS: fluPHENAZine DECANOATE 25 MG/ML 5ML MDV IM SCH (10:07)
--- NOTE | 2024-03-28 11:44 | P.PN ---
Progress Note - Text Progress Note Date: 03/28/24 Interval History: Patient was seen wandering the hallways and was directable and agreeable to sp kristal with magnetic tape typewriter operator in the office. Patient states that he slept until about 3 am, then woke up, and states that is why he does not want to give up THC because it helps with his creativity, because he likes to write when he cannot sleep. He states he is trying smell the roses through the window, metaphorically. Patient continues to act bizarrely, intrusive at times. Very poor insight and judgment. He claims to be going to groups, and he states his appetite is good. At this time patient denies any suicidal or homicidal ideations, intent or plan. Patient denies any auditory, visual hallucinations and denies any paranoia or delusions. Patient denies any side effects from the medications and has been compliant with meds. MENTAL STATUS EXAM: General Appearance: Patient appears to be stated age is alert, alert, attempts to cooperate. Patient appears to have fair hygiene and grooming. Shaved hair, ellington, multiple tattoos. Behavior: Patient is sitting without agitated behavior, friendly, bizarre, fixated on using marijuana Speech: Patient's speech is fluent and nonpressured. Mood/Affect: Mood is "pretty good" Affect is congruent and constricted bizarre Suicidality/Homicidality: Patient denies homicidal ideation and suicidal ideation Perceptions: Patient denies any visual hallucinations and denies any auditory hallucinations Though content/process: there is no evidence of delusional thought content, process is disorganized, loose associations Memory and concentration:aox4 Judgment and insight: chronically poor IMPRESSIONS: schizoaffective disorder Alcohol use disorder, mild Cannabis use disorder nicotine dependance legal problems homelessness PLAN: -Patient is admitted under voluntary status to [facility] for stabilization of psychiatric symptoms and safety. Patient is currently on a deferral that he signed on his last admission. -Medications : Received Prolixin D 03/28/24, next dose will be due q. 14 days on 04/11. Depakote ER 1000mg qhs for mood stabilization, increase trazodone 300mg qhs for sleep. -Ativan and Haldol PRN for agitation/aggression -NRT - nicotine patch -SW on board for discharge planning. Encourage patient to participate in groups to work on coping skills. Patient is currently on a deferral from his last admission, earlier this month.
[2024-03-28] MEDS: ACETAMINOPHEN TAB 325 MG TAB PO PRN (17:40)
[2024-03-28] MEDS: IBUPROFEN 600 MG TAB PO PRN (17:40)
[2024-03-28] MEDS: traZODone HCL 100 MG TAB PO SCH (21:59)
[2024-03-28] MEDS: LORazepam 1 MG TAB PO PRN (22:54)
--- NOTE | 2024-03-29 12:11 | P.PN ---
Progress Note - Text Progress Note Date: 03/29/24 Interval History: Patient was seen wandering the hallways and was directable and agreeable to sp kristal with job specification writer in the office. Patient states that he is "keeping it withing the navigational beacons". Patient states that he does not have any anxiety. He states his mood is pretty good. Patient states that he is having problems sleeping, agreeable to try Remeron. Patient continues to act bizarrely, intrusive at times. Poor insight and judgment. He claims to be going to groups, and he states his appetite is good. At this time patient denies any suicidal or homicidal ideations, intent or plan. Patient denies any auditory, visual hallucinations and denies any paranoia or delusions. Patient denies any side effects from the medications and has been compliant with meds. MENTAL STATUS EXAM: General Appearance: Patient appears to be stated age is alert, alert, attempts to cooperate. Patient appears to have fair hygiene and grooming. Shaved hair, ellington, multiple tattoos. Behavior: Patient is sitting without agitated behavior, friendly, bizarre, less fixated on using marijuana today. intrusive at times. Speech: Patient's speech is fluent and nonpressured. Mood/Affect: Mood is "pretty good" Affect is congruent and constricted bizarre, mildly improving Suicidality/Homicidality: Patient denies homicidal ideation and suicidal ideation Perceptions: Patient denies any visual hallucinations and denies any auditory hallucinations Though content/process: there is no evidence of delusional thought content, process is disorganized, loose associations, mildly improving Memory and concentration:aox4 Judgment and insight: chronically poor, improving mildly IMPRESSIONS: schizoaffective disorder Alcohol use disorder, mild Cannabis use disorder nicotine dependance legal problems homelessness PLAN: -Patient is admitted under voluntary status to [facility] for stabilization of psychiatric symptoms and safety. Patient is currently on a deferral that he signed on his last admission. -Medications : Received Prolixin D 03/28/24, next dose will be due q. 14 days on 04/11. Depakote ER 1000mg qhs for mood stabilization, trazodone 300mg qhs for sleep. Add Remeron 15mg po qhs for sleep -Ativan and Haldol PRN for agitation/aggression -NRT - nicotine patch -SW on board for discharge planning. Encourage patient to participate in groups to work on coping skills. Patient is currently on a deferral from his last admission, earlier this month. Discharge next week, once patient is more psychiatrically stable.
[2024-03-29] MEDS: MIRTAZAPINE 15 MG TAB PO SCH (21:42)
[2024-03-29] MEDS: haloperidoL 5 MG TAB PO PRN (21:44)
[2024-03-30 04:20] VITALS: RESP 16
--- NOTE | 2024-03-30 13:56 | P.PN ---
Progress Note - Text Progress Note Date: 03/30/24 Interval History: Patient was seen wandering the hallways and was directable and agreeable to sp kristal with jingle writer in the office. Patient states that he is "working on returning back to earth". patient is quite tangential and disorganized in his thoughts but at times he is able to have insight into his tangential thinking. Despite motivational interviewing, patient is insistent on continuing to be on THC. He states that he would like to read her journal about his use of THC and its help with his mental health. He reports sleeping and eating well. At this time patient denies any suicidal or homicidal ideations, intent or plan. Patient denies any auditory, visual hallucinations and denies any paranoia or delusions. Patient denies any side effects from the medications and has been compliant with meds. MENTAL STATUS EXAM: General Appearance: Patient appears to be stated age is alert, alert, attempts to cooperate. Patient appears to have fair hygiene and grooming. Shaved hair, ellington, multiple tattoos. Behavior: Patient is sitting without agitated behavior, friendly, bizarre. intrusive at times. Speech: Patient's speech is fluent and nonpressured. Mood/Affect: Mood is "pretty good" Affect is congruent and constricted bizarre, mildly improving Suicidality/Homicidality: Patient denies homicidal ideation and suicidal ideation Perceptions: Patient denies any visual hallucinations and denies any auditory hallucinations Though content/process: there is no evidence of delusional thought content, process is disorganized, loose associations, mildly improving Memory and concentration:aox4 Judgment and insight: chronically poor, improving mildly IMPRESSIONS: schizoaffective disorder Alcohol use disorder, mild Cannabis use disorder nicotine dependance legal problems homelessness PLAN: -Patient is admitted under voluntary status to [facility] for stabilization of psychiatric symptoms and safety. Patient is currently on a deferral that he signed on his last admission. -Medications : Received Prolixin D 03/28/24, next dose will be due q. 14 days on 04/11. Depakote ER 1000mg qhs for mood stabilization, trazodone 300mg qhs for sleep. Remeron 15mg po qhs for sleep -Ativan and Haldol PRN for agitation/aggression -NRT - nicotine patch -SW on board for discharge planning. Encourage patient to participate in groups to work on coping skills. Patient is currently on a deferral from his last admission, earlier this month. Discharge next week, once patient is more psychiatrically stable.
--- NOTE | 2024-03-31 12:18 | P.PN ---
Progress Note - Text Progress Note Date: 03/31/24 Interval History: Patient was seen wandering the hallways and was directable and agreeable to jcarlos giraldo with sports book writer in the office. Patient is quite tangential and disorganized in his thoughts. Majority of his statements are quite nonsensical and have loose associations. He brought numerous folders and papers, and Bible with him into the room. He was describing a "well of creativity and stars" which he had radha on a folder that he brought with him. He then speaks about DMT and the pineal gland. He is grandiose when he talks about this and believes he has greater understanding of this information. He is also hyperverbal and somewhat intrusive at times. Despite motivational interviewing, patient is insistent on continuing to use THC. He reports sleeping and eating well. At this time patient denies any suicidal or homicidal ideations, intent or plan. Patient denies any auditory, visual hallucinations and denies any paranoia or delusions. Patient denies any side effects from the medications and has been compliant with meds. Vital Signs Temp 97.3 F L 03/30/24 04:19 Pulse 56 L 03/31/24 07:05 Resp 16 03/30/24 04:19 BP 105/72 03/31/24 07:05 Pulse Ox 98 03/30/24 04:19 FiO2 MENTAL STATUS EXAM: General Appearance: Patient appears to be stated age is alert, alert, attempts to cooperate. Patient appears to have fair hygiene and grooming. Shaved hair, ellington, multiple tattoos. Behavior: Patient is sitting without agitated behavior, friendly, bizarre. intrusive at times. Speech: Patient's speech is fluent and nonpressured. Mood/Affect: Mood is "pretty good" Affect is congruent and constricted bizarre, mildly improving Suicidality/Homicidality: Patient denies homicidal ideation and suicidal ideation Perceptions: Patient denies any visual hallucinations and denies any auditory hallucinations Though content/process: there is no evidence of delusional thought content, process is disorganized, loose associations, mildly improving Memory and concentration:aox4 Judgment and insight: chronically poor, improving mildly IMPRESSIONS: schizoaffective disorder, bipolar type Alcohol use disorder, mild Cannabis use disorder nicotine dependance legal problems homelessness PLAN: -Patient is admitted under voluntary status to [facility] for stabilization of psychiatric symptoms and safety. Patient is currently on a deferral that he signed on his last admission. -Medications : Would recommend increasing Prolixin decanoate dosing at next administration time if pt does not respond to Depakote. Received Prolixin D 03/28/24, next dose will be due q. 14 days on 04/11. Increase Depakote ER to 1500mg qhs for mood stabilization, trazodone 300mg qhs for sleep. Discontinue Remeron 15mg po qhs since pt is requiring mood stabilization -Ativan and Haldol PRN for agitation/aggression -NRT - nicotine patch -SW on board for discharge planning. Encourage patient to participate in groups to work on coping skills. Patient is currently on a deferral from his last admission, earlier this month. Discharge next week, once patient is more psychiatrically stable.
[2024-03-31 14:18] LABS: Appearance,Urine Clear (Clear); Bilirubin,Urine Negative (Negative); Blood,Urine Negative (Negative); Color,Urine Colorless; Glucose,Urine (UA) Negative (Negative); Ketones,Urine Negative (Negative); Leukocyte Esterase,Urine Negative (Negative); Nitrite,Urine Negative (Negative); Protein,Urine Negative (Negative); Specific Gravity,Urine 1.012 (1.001-1.035); Urobilinogen,Urine <2.0 mg/dL (<2.0)
[2024-03-31] MEDS: DIVALPROEX ER 500 MG TAB.ER.24H PO SCH (21:20)
--- NOTE | 2024-04-01 11:39 | P.PN ---
Progress Note - Text Progress Note Date: 04/01/24 Interval History: Patient was seen wandering the hallways and was directable and agreeable to sp kristal with chief writer in the office. Patient states that he is doing pretty good, and trying to pay it forward, helping co patients. Patient states that he does not have any anxiety. He states his mood is pretty good. Patient states his sleep is improving. Patient is less intrusive today. Improving insight and judgment. He claims to be going to groups, and he states his appetite is good. Patch Sander got verbal consent from patient to call patients , to ensure a safe discharge. At this time patient denies any suicidal or homicidal ideations, intent or plan. Patient denies any auditory, visual hallucinations and denies any paranoia or delusions. Patient denies any side effects from the medications and has been compliant with meds. MENTAL STATUS EXAM: General Appearance: Patient appears to be stated age is alert, alert, attempts to cooperate. Patient appears to have fair hygiene and grooming. Shaved hair, ellington, multiple tattoos. Behavior: Patient is sitting without agitated behavior, friendly, less bizarre, less fixated on using marijuana today. improving Speech: Patient's speech is fluent and nonpressured. Mood/Affect: Mood is "pretty good" Affect is congruent and constricted, improving Suicidality/Homicidality: Patient denies homicidal ideation and suicidal ideation Perceptions: Patient denies any visual hallucinations and denies any auditory hallucinations Though content/process: there is no evidence of delusional thought content, process is mildly improving Memory and concentration:aox4 Judgment and insight: chronically poor, improving mildly IMPRESSIONS: schizoaffective disorder Alcohol use disorder, mild Cannabis use disorder nicotine dependance legal problems homelessness PLAN: -Patient is admitted under voluntary status to [facility] for stabilization of psychiatric symptoms and safety. Patient is currently on a deferral that he signed on his last admission. -Medications : Received Prolixin D 03/28/24, next dose will be due q. 14 days on 04/11. Depakote ER 1000mg qhs for mood stabilization, trazodone 300mg qhs for sleep. Remeron 15mg po qhs for sleep add benedryl for sleep. -Ativan and Haldol PRN for agitation/aggression -NRT - nicotine patch -SW on board for discharge planning. Encourage patient to participate in groups to work on coping skills. Patient is currently on a deferral from his last admission, earlier this month. Discharge tomorrow if patient continues to improve. Patch Sander spoke with patient's over the phone Patti, spoke about patient's condition, treatment and prognosis. We also spoke in detail about patient's heavy cannabis use and how it is severely affecting his mental health and his outcome, she verbally understood and agreed and will attempt to talk with him about quitting.
[2024-04-01] MEDS: diphenhydrAMINE 50 MG CAP PO SCH (20:14)
[2024-04-02 07:09] VITALS: BP 96/63; PULSE 62; TEMP 98.4
--- NOTE | 2024-04-02 10:16 | P.DS ---
Providers Date of admission: 03/26/24 17:03 Expected date of discharge: 04/02/24 Attending physician: Aren Lugo MD Consults: 03/26/24 17:48 Consult Physician Routine Consulting Provider: Pierce Physician Consult Reason/Comments: H&P/medical management Do you want consulting provider notified?: Yes Primary care physician: Lucy Magaña - Discharge Diagnosis(es) (1) Schizoaffective disorder Current Visit: Yes Status: Acute Priority: High (2) Cannabis use disorder, moderate, dependence Current Visit: Yes Status: Acute Priority: Medium (3) Nicotine dependence Current Visit: Yes Status: Acute Priority: Low (4) Legal problem Current Visit: No Status: Acute Priority: Medium (5) Alcohol use disorder, mild, abuse Current Visit: No Status: Chronic Priority: Medium Hospital Course: Admission HPI: Admission note was completed by commercial real estate underwriter "Patient presented to the hospital on 03/09 8. As per EPS note, "Cl sitting in bed A/O x4 brought in via due to bizzare behavior, abrasive with others, disorganized thinking, and confusion. Cl presents with tangential thoughts unrelated to their mental health. Cl was redirected a few times. Cl reported to have not slept in two days, with increased bizarre behavior in the home. Cl's reports having guests visit and Ziggy was " in their faces about things, and attempted to give a 10 yr old ibuprophen at 300 am for no reason, agressive toward an . Cl frequently talking over when she is trying to explain what is going on. Cl denying all things being reported. Cl repeatedly stating " its all childhood trama". Cl asked about substances that have been used recently. Cl only reported THC use. Clinician asked cl if they were using any type of psychodelic edibles, based on Cl's behavior. Cl refused to answer question directly only stating repeatedly " I plead the 5th, I plead the 5th." Cl continued to provide vague statements. Cl is labile, appearing confused and disorganized. Nursing staff reports cl was,yelling at times,pacing, speaking erratically, stating random answers that don't make sense. Judgement/insight/impulse control poor. ADLS:poor sleep/thomas:poor. Cl unsure of when they last ate. " Today, the patient claims that there is alot of stuff going on at home, and there are things going on in his head. No chaos, no voices, no thoughts of hurting himself or others. Just "things" Patient is very vague during the interview. Patient becomes bizarre during the interview, closing his eyes and making bizarre hand gestures. Denies SI/HI Patient admits to using marijuana. Lithograph Operator explained to the patient that the marijuana could be causing hospital visits, the patient states that he is taking a stand against marijuana, and for THC, and he is not willing to give it up. Because it is for his and family, and his own well being." Hospital course: Upon admission to the unit patient was admitted on a active deferral to the mental health unit. Patient was initially bizarre, psychotic however with time and treatment he eventually got along well with other patients on the unit and followed unit protocol. Patient was compliant with the medications and denied any side effects throughout hospital course. Patient was started on Prolixin D was given 37.5 mg IM on 03/28/2024, increase the interval to q. 14 days, next dose will be due on 04/11. Increase Depakote ER 1500 mg nightly for mood stabilization, trazodone increased to 300 mg nightly for sleep/mood, Benadryl 50 mg nightly for insomnia/EPS prophylaxis. Patient spoke of his stressors and engaged in therapy both group and individual. Patient was also seen by medical team for history and physical exam. Throughout the course of the hospit alization patient gradually improved with regards to mood, anxiety, psychosis, sleep and returned back to their baseline level of functioning. On the day of discharge patient denied any suicidal or homicidal ideations intent or plan denied any auditory or visual hallucinations. Patient endorsed wanting to live for his health and family. The patient denied any access to guns or weapons. Patient denied any paranoia and did not endorse any delusions. Patient does have a significant history of substance abuse and was counseled on abstaining from all substances including alcohol and marijuana. Patient elected to do outpatient substance use treatment program through [facility]. Patient was also counseled on the medications and need for regular compliance and was encouraged to follow-up with their outpatient appointment for mental health and also for primary care. Prior to discharge, commercial real estate underwriter spoke with patient's over the phone to express concerns about patient's marijuana use and how it is affecting his mental health condition. We also spoke about treatment, follow-up and also prognosis. Questions were answered. Mental status exam: General Appearance: Patient appears to be have short hair, stated age is alert, pleasant, and cooperative. Patient is in no acute distress and has improved hygiene and grooming Behavior: Patient is calmly seated without any agitated behavior. Speech: Patient's speech is fluent and nonpressured. Mood/Affect: Patient reports their mood is "good", affect is congruent and euthymic. Suicidality/Homicidality: Patient denies having any suicidal or homicidal ideation intent or plan. Perceptions: Patient denies any auditory or visual hallucinations. Though content/process: There is no evidence of any delusional thought content and thought process is linear and goal-directed. Memory and concentration: AOX3, grossly intact for the purposes of this session. Can spell "WORLD" backwards correctly. Judgment and insight: Chronically poor, improved with guarded prognosis Impression: schizoaffective disorder Alcohol use disorder, mild Cannabis use disorder nicotine dependance legal problems Plan: -Continue with discharge today as patient has improved and stabilized psychiatrically and is not currently an imminent threat to himself and/or others. Patient will remain at chronically elevated risk for harm to self and/or others due to his impulsivity and substance abuse. -Continue medications: Prolixin D 37.5 mg IM, last dose was given on 03/28/2024, next dose will be due on 04/11 at [facility] q. 14 days. Depakote 1500 mg nightly for mood stabilization, trazodone 300 mg nightly for sleep/mood, Benadryl 50 mg nightly for insomnia/EPS prophylaxis. -Patient was counseled on the need for medication compliance and appropriate follow-up at mental health and also primary care for medical issues. Patient verbalized understanding and agreed. -Social work to help coordinate patient's discharge today. Patient is part of the ACT team and will be seen regularly by [facility]. Social work also to arrange for patients follow up appointments with [facility] for psychiatric care along with follow up with primary care provider. -Patient counseled on abstaining from recreational drugs and marijuana and alcohol. Was informed/educated on the adverse effects on their physical and mental health. Patient verbally agreed and understood. Patient was offered substance abuse treatment however declined at this time. -Patient was instructed to return to the hospital or seek immediate medical care if their psychiatric or medical symptoms do worsen or reoccur. Allergies Allergy/AdvReac Type Severity Reaction Status Date / Time No Known Allergies Allergy Verified 03/26/24 19:14 Laboratory Results WBC 6.0 k/uL (3.8-10.6) 03/27/24 07:38 RBC 4.52 m/uL (4.30-5.90) 03/27/24 07:38 Hgb 14.1 gm/dL (13.0-17.5) 03/27/24 07:38 Hct 44.8 % (39.0-53.0) 03/27/24 07:38 MCV 99.0 fL (80.0-100.0) 03/27/24 07:38 MCH 31.1 pg (25.0-35.0) 03/27/24 07:38 MCHC 31.4 g/dL (31.0-37.0) 03/27/24 07:38 RDW 12.4 % (11.5-15.5) 03/27/24 07:38 Plt Count 261 k/uL (150-450) 03/27/24 07:38 MPV 8.3 03/27/24 07:38 Neutrophils % 49 % 03/27/24 07:38 Lymphocytes % 35 % 03/27/24 07:38 Monocytes % 8 % 03/27/24 07:38 Eosinophils % 4 % 03/27/24 07:38 Basophils % 0 % 03/27/24 07:38 Neutrophils # 3.0 k/uL (1.3-7.7) 03/27/24 07:38 Lymphocytes # 2.1 k/uL (1.0-4.8) 03/27/24 07:38 Monocytes # 0.5 k/uL (0-1.0) 03/27/24 07:38 Eosinophils # 0.3 k/uL (0-0.7) 03/27/24 07:38 Basophils # 0.0 k/uL (0-0.2) 03/27/24 07:38 Sodium 142 mmol/L (137-145) 03/27/24 07:38 Potassium 4.7 mmol/L (3.5-5.1) 03/27/24 07:38 Chloride 107 mmol/L (98-107) 03/27/24 07:38 Carbon Dioxide 27 mmol/L (22-30) 03/27/24 07:38 Anion Gap 8 mmol/L 03/27/24 07:38 BUN 12 mg/dL (9-20) 03/27/24 07:38 Creatinine 0.83 mg/dL (0.66-1.25) 03/27/24 07:38 Est GFR (CKD-EPI)AfAm >90 (>60 ml/min/1.73 sqM) 03/27/24 07:38 Est GFR (CKD-EPI)NonAf >90 (>60 ml/min/1.73 sqM) 03/27/24 07:38 Glucose 99 mg/dL (74-99) 03/27/24 07:38 Calcium 9.6 mg/dL (8.4-10.2) 03/27/24 07:38 Total Bilirubin 0.4 mg/dL (0.2-1.3) 03/27/24 07:38 AST 22 U/L (17-59) 03/27/24 07:38 ALT 21 U/L (4-49) 03/27/24 07:38 Alkaline Phosphatase 66 U/L (38-126) 03/27/24 07:38 Total Protein 6.3 g/dL (6.3-8.2) 03/27/24 07:38 Albumin 4.2 g/dL (3.5-5.0) 03/27/24 07:38 TSH 2.430 mIU/L (0.465-4.680) 03/27/24 07:38 Urine Color Colorless 03/31/24 14:00 Urine Appearance Clear (Clear) 03/31/24 14:00 Urine pH 7.0 (5.0-8.0) 03/31/24 14:00 Ur Specific [place] 1.012 (1.001-1.035) 03/31/24 14:00 Urine Protein Negative (Negative) 03/31/24 14:00 Urine Glucose (UA) Negative (Negative) 03/31/24 14:00 Urine Ketones Negative (Negative) 03/31/24 14:00 Urine Blood Negative (Negative) 03/31/24 14:00 Urine Nitrite Negative (Negative) 03/31/24 14:00 Urine Bilirubin Negative (Negative) 03/31/24 14:00 Urine Urobilinogen <2.0 mg/dL (<2.0) 03/31/24 14:00 Ur Leukocyte Esterase Negative (Negative) 03/31/24 14:00 Urine Opiates Screen Not Detected (NotDetected) 03/26/24 08:59 Ur Oxycodone Screen Not Detected (NotDetected) 03/26/24 08:59 Urine Methadone Screen Not Detected (NotDetected) 03/26/24 08:59 Ur Barbiturates Screen Not Detected (NotDetected) 03/26/24 08:59 Valproic Acid 56.4 ug/mL 03/27/24 07:38 U Tricyclic Antidepress Not Detected (NotDetected) 03/26/24 08:59 Ur Phencyclidine Scrn Not Detected (NotDetected) 03/26/24 08:59 Ur Amphetamines Screen Not Detected (NotDetected) 03/26/24 08:59 U Methamphetamines Scrn Not Detected (NotDetected) 03/26/24 08:59 U Benzodiazepines Scrn Not Detected (NotDetected) 03/26/24 08:59 Urine Cocaine Screen Not Detected (NotDetected) 03/26/24 08:59 U Marijuana (THC) Screen Detected (NotDetected) H 03/26/24 08:59 Influenza Type A (PCR) Not Detected (Not Detectd) 03/26/24 15:54 Influenza Type B (PCR) Not Detected (Not Detectd) 03/26/24 15:54 RSV (PCR) Not Detected (Not Detectd) 03/26/24 15:54 SARS-CoV-2 (PCR) Not Detected (Not Detectd) 03/26/24 15:54 Vital Signs Temp 98.4 F 04/02/24 06:27 Pulse 62 04/02/24 06:27 Resp 16 04/02/24 06:27 BP 96/63 04/02/24 06:27 Pulse Ox 95 04/02/24 06:27 FiO2 Patient Condition at Discharge: Stable Plan - Discharge Summary New Discharge Prescriptions: New diphenhydrAMINE [Benadryl] 50 mg PO HS 30 Days #30 cap Divalproex ER [Depakote ER] 1,500 mg PO HS 30 Days #90 tab Nicotine 14Mg/24Hr Patch [Habitrol] 1 patch TRANSDERM DAILY 14 Days #14 patch fluPHENAZine decanoate [Prolixin Decanoate] 37.5 mg IM Q14D #1 ml traZODone HCL 300 mg PO HS 30 Days #30 tab Continue Nicotine Gum (Polacrilex) [Nicorette] 2 mg BUCCAL Q4HR PRN 30 Days #180 piece ofgum PRN Reason: Nicotine Cravings Discontinued Nicotine 14Mg/24Hr Patch [Habitrol] 1 patch TRANSDERM DAILY 14 Days #14 patch Divalproex ER [Depakote ER] 1,000 mg PO HS traZODone HCL 150 mg PO HS PRN 30 Days #30 tablet PRN Reason: Insomnia fluPHENAZine decanoate [Prolixin Decanoate] 37.5 mg IM Q21D #1 each Discharge Medication List Divalproex ER [Depakote ER] 1,500 mg PO HS 30 Days #90 tab 04/02/24 [Rx] Nicotine 14Mg/24Hr Patch [Habitrol] 1 patch TRANSDERM DAILY 14 Days #14 patch 04/02/24 [Rx] Nicotine Gum (Polacrilex) [Nicorette] 2 mg BUCCAL Q4HR PRN 30 Days #180 pieceofgum 04/02/24 [Rx] diphenhydrAMINE [Benadryl] 50 mg PO HS 30 Days #30 cap 04/02/24 [Rx] fluPHENAZine decanoate [Prolixin Decanoate] 37.5 mg IM Q14D #1 ml 04/02/24 [Rx] traZODone HCL 300 mg PO HS 30 Days #30 tab 04/02/24 [Rx] Follow up Appointment(s)/Referral(s): [facility] [Outside] - 04/12/24 10:30 am (04/12/2024 10:30AM - 11:30AM LISA GANDHI ) Lucy Magaña DO [Primary Care Provider] - 1-2 days Patient Instructions/Handouts: How to Stop Smoking (DC), Bipolar Disorder (DC), Psychotic Disorder (DC) Activity/Diet/Wound Care/Special Instructions: Avoid the use of street drugs and alcohol. Take all medications as prescribed. When you are in need of refills on your medications, please contact your medical provider and/or outpatient psychiatrist/provider to have this done. Please go to your scheduled outpatient appointment for aftercare treatment. If symptoms return or become worse, call the crisis line at and/or go to the nearest emergency room for evaluation. National Suicide Hotline 986 Discharge Disposition: HOME SELF-CARE
[2024-04-04] MEDS ORDERED: fluPHENAZine DECANOATE 25 MG/ML 5ML MDV IM SCH (10:00)
== END 2024-04-02 13:38 | disposition home or self-care (01) | DRG 750 ==
LOC: EC 08:30 → 3MHU 17:03
PROVIDERS: ADMIT Psychiatry & Neurology Psychiatry; ATTEND Psychiatry & Neurology Psychiatry
DX: F25.0 Schizoaffective disorder, bipolar type (principal); F12.20 Cannabis dependence, uncomplicated; Z28.310 Unvaccinated for COVID-19; F41.9 Anxiety disorder, unspecified; Z28.21 Immunization not carried out because of patient refusal; G47.00 Insomnia, unspecified; F17.200 Nicotine dependence, unspecified, uncomplicated; Z71.51 Drug abuse counseling and surveillance of drug abuser; Z71.41 Alcohol abuse counseling and surveillance of alcoholic; Z71.89 Other specified counseling; Z56.0 Unemployment, unspecified; Z59.00 Homelessness unspecified; Z65.3 Problems related to other legal circumstances; Z79.899 Other long term (current) drug therapy
CPT/HCPCS: 80053; 80164; 80306; 81003; 82075; 84443; 85025; 87636; 99285